=== PATIENT | male | born 1940 | race Caucasian/White ===

== ENCOUNTER 2016-06-07 18:14 | Observation (INO) | payer MEDICARE, OTHER ==
[2016-06-07 18:38] LABS: Hematocrit 43 % (42-52); Hemoglobin 14.5 g/dl (14.0-18.0); Mean Corpuscular HGB Conc 33 g/dl (31-36); Mean Corpuscular Hemoglobin 31 pg (27-31); Mean Corpuscular Volume 92 fL (80-94); Mean Platelet Volume 9 um3 (7.4-10.4); Red Blood Count 4.69 10^6/ul (4.0-5.4); Red Cell Distribution Width 14 % (10.5-15); White Blood Count 5.9 10^3/ul (3.5-10.8)
--- NOTE | 2016-06-07 18:41 | RAD ---
INDICATION: Neurologic changes COMPARISON: None. TECHNIQUE: Contiguous axial sections of the brain were obtained from the skull base to the vertex without contrast. FINDINGS: The ventricles, cisterns and sulci exhibit mild symmetric involutional change. The subcortical and periventricular white matter exhibits mild hypoattenuation. The bhatti-white matter differentiation is adequately maintained and there is no sulcal effacement. No significant focal abnormality or mass effect is present. There is no evidence for intracranial hemorrhage. No significant focal osseous abnormality is present. The visualized portion of the paranasal sinuses and mastoid air cells appear clear. Bilateral hearing aids are noted. IMPRESSION: Mild chronic microvascular disease and mild involutional changes without acute intracranial abnormality. Findings reported Dr. Vidal over the telephone at 1829 hours on June 07, 2016.
[2016-06-07 18:51] LABS: Urine Bacteria Absent (Absent); Urine Bilirubin Negative (Negative); Urine Glucose Negative (Negative); Urine Nitrite Negative (Negative)
[2016-06-07 19:02] LABS: Albumin 4.1 g/dL (3.2-5.2); Calcium 9.5 mg/dL (8.6-10.3); EGFR African American 84.6 (>60); EGFR Non-African American 65.8 (>60); Globulin 3.1 g/dL (2-4); HDL Cholesterol 55.2 mg/dL; Potassium 3.7 mmol/L (3.5-5.0); Total Bilirubin 0.5 mg/dL (0.2-1.0); Total Protein 7.2 g/dL (6.4-8.9)
--- NOTE | 2016-06-07 19:08 | RAD ---
INDICATION: Syncopal episode COMPARISON: None. TECHNIQUE: Single AP portable view of the chest was obtained. FINDINGS: Image quality is compromised due to the relative inferiority of a portable chest x-ray. The heart and mediastinum exhibit normal size and contour. There is mild calcification overlying the arch of the aorta. The lungs are grossly clear. There is no evidence of a large pleural effusion. Visualized bones are normal for the patient's age. IMPRESSION: No radiographic evidence for acute cardiopulmonary abnormality on this portable chest x-ray.
[2016-06-07 19:33] LABS: BUN/Creatinine Ratio 19.3 (8-20)
[2016-06-07] MEDS ORDERED: Ondansetron INJ* 2 MG/ML VIAL IV ONE (20:02)
--- NOTE | 2016-06-07 20:48 | ED ---
tello Nava Timothy, scribed for James Vidal MD on 06/07/16 at 1828 . Neurological HPI - HPI Summary HPI Summary: Lm Lovelace is a 76 yo male presenting to [facility] with possible CVA. He was found on the floor snoring, and orginally it was believed that he had a syncopal episode or seizure, however at this point EMS believes it to be a CVA. He states he felt dizzy right before the event. His is present in room, and states that prior to the event he began saying things that didn't make sense for about 3 phrases. He states he saw lights when he lost consciousness. He states he feels normal now, but before he states when his speech was impaired he couldn't find the words. His MHx includes HTN. - History of Current Complaint Stated Complaint: CODE REYNOLDS Time Seen by Provider: 06/07/16 18:16 Last Known Well Date: today Hx Obtained From: Patient Onset/Duration: Sudden Onset, Started minutes ago Timing: Sudden Onset Onset Severity: Moderate Current Severity: Moderate Pain Intensity: 0 Pain Scale Used: 0-10 Numeric Character: Impaired Speech, Other: - syncope Syncope Timing: seconds Episode Lasting: Seconds/Minutes Syncope Context: Witnessed, Loss of Consciousness: Yes, At Rest Syncope Location: All Extremities Associated Signs and Symptoms: Positive: Loss of Consciousness, Impaired Speech - Allergy/Home Medications Allergies/Adverse Reactions: Allergies Allergy/AdvReac Type Severity Reaction Status Date / Time No Known Allergies Allergy Verified 06/07/16 18:42 Home Medications: Home Medications Isosorbide Mononitrate ER TAB* [Imdur ER TAB*] 30 mg PO DAILY 06/07/16 [History Confirmed 06/07/16] Nebivolol TAB (NF) [Bystolic TAB (NF)] 2.5 mg PO BEDTIME 06/07/16 [History Confirmed 06/07/16] [place]-3 Fatty Acids [Fish Oil] 1,000 mg PO DAILY 06/07/16 [History Confirmed ] Vitamin B Complex CAP* [B Complex CAP*] 1 cap PO DAILY 06/07/16 [History Confirmed 06/07/16] PMH/Surg Hx/FS Hx/Imm Hx Endocrine/Hematology History: Denies: Hx Diabetes, Hx Systemic Lupus Erythematosus Cardiovascular History: Reports: Hx Hypertension Denies: Hx Congestive Heart Failure History: Denies: Hx Dialysis, Hx Renal Disease Musculoskeletal History: Denies: Hx Rheumatoid Arthritis - Cancer History Hx Chemotherapy: No - Surgical History Surgery Procedure, Year, and Place: rt groin hernia - Family History Known Family History: Positive: Cardiac Disease, Hypertension Negative: Diabetes - Social History Lives: With Family Hx Tobacco Use: No Smoking Status (MU): Never Smoked Tobacco Review of Systems Constitutional: Negative Eyes: Negative ENT: Negative Cardiovascular: Negative Respiratory: Negative Gastrointestinal: Negative Genitourinary: Negative Musculoskeletal: Negative Skin: Negative Neurological: Other - impaired speech Positive: Syncope Psychological: Normal All Other Systems Reviewed And Are Negative: Yes Physical Exam Triage Information Reviewed: Yes Vital Signs On Initial Exam: Initial Vital Signs Temp 98.2 F 06/07/16 18:23 Pulse 60 06/07/16 18:23 Resp 15 06/07/16 18:23 BP 184/114 06/07/16 18:23 Pulse Ox 95 06/07/16 18:23 Vital Signs Reviewed: Yes Appearance: Positive: Well-Appearing, No Pain Distress Skin: Positive: Warm, Skin Color Reflects Adequate Perfusion, Dry Head/Face: Positive: Normal Head/Face Inspection Eyes: Positive: Normal ENT: Positive: Normal ENT inspection Neck: Positive: Supple, Nontender Respiratory/Lung Sounds: Positive: Clear to Auscultation, Breath Sounds Present Cardiovascular: Positive: RRR Abdomen Description: Positive: Nontender, Soft Bowel Sounds: Positive: Present Musculoskeletal: Positive: Normal Neurological: Positive: Sensory/Motor Intact, Alert, Oriented to Person Place, Time, CN Intact II-III, Reflexes Intact Psychiatric: Positive: Normal, Affect/Mood Appropriate Diagnostics - Vital Signs Vital Signs Temp Pulse Resp BP Pulse Ox 06/07/16 19:22 50 17 183/105 98 06/07/16 19:00 53 12 97 06/07/16 18:30 59 13 95 06/07/16 18:23 98.2 F 60 15 184/114 95 06/07/16 18:18 95 - Laboratory Lab Results: Lab Results 06/07/16 06/07/16 06/07/16 Range/Units 18:32 18:32 18:32 WBC 5.9 (3.5-10.8) 10^3/ul RBC 4.69 (4.0-5.4) 10^6/ul Hgb 14.5 (14.0-18.0) g/dl Hct 43 (42-52) % MCV 92 (80-94) fL MCH 31 (27-31) pg MCHC 33 (31-36) g/dl RDW 14 (10.5-15) % Plt Count 124 L (150-450) 10^3/ul MPV 9 (7.4-10.4) um3 Neut % (Auto) 53.8 (38-83) % Lymph % (Auto) 34.7 (25-47) % Lagrange % (Auto) 9.0 (1-9) % Eos % (Auto) 1.7 (0-6) % Baso % (Auto) 0.8 (0-2) % Absolute Neuts (auto) 3.2 (1.5-7.7) 10^3/ul Absolute Lymphs (auto) 2.0 (1.0-4.8) 10^3/ul Absolute Monos (auto) 0.5 (0-0.8) 10^3/ul Absolute Eos (auto) 0.1 (0-0.6) 10^3/ul Absolute Basos (auto) 0 (0-0.2) 10^3/ul Absolute Nucleated RBC 0 10^3/ul Nucleated RBC % 0.1 INR (Anticoag Therapy) 0.93 (0.89-1.11) APTT 27.2 (26.0-36.3) seconds Sodium 137 (133-145) mmol/L Potassium 3.7 (3.5-5.0) mmol/L Chloride 105 (101-111) mmol/L Carbon Dioxide 25 (22-32) mmol/L Anion Gap 7 (2-11) mmol/L BUN 21 (6-24) mg/dL Creatinine 1.09 (0.67-1.17) mg/dL Est GFR ( Amer) 84.6 (>60) Est GFR (Non-Af Amer) 65.8 (>60) BUN/Creatinine Ratio 19.3 (8-20) Glucose 108 H (70-100) mg/dL Lactic Acid (0.5-2.0) mmol/L Calcium 9.5 (8.6-10.3) mg/dL Total Bilirubin 0.50 (0.2-1.0) mg/dL AST 44 H (13-39) U/L ALT 35 (7-52) U/L Alkaline Phosphatase 54 (34-104) U/L Troponin I 0.00 (<0.04) ng/mL Total Protein 7.2 (6.4-8.9) g/dL Albumin 4.1 (3.2-5.2) g/dL Globulin 3.1 (2-4) g/dL Albumin/Globulin Ratio 1.3 (1-3) Triglycerides 106 mg/dL Cholesterol 218 mg/dL LDL Cholesterol 142 mg/dL HDL Cholesterol 55.2 mg/dL Urine Color Urine Appearance Urine pH (5-9) Ur Specific Stanley (1.010-1.030) Urine Protein (Negative) Urine Ketones (Negative) Urine Blood (Negative) Urine Nitrate (Negative) Urine Bilirubin (Negative) Urine Urobilinogen (Negative) Ur Leukocyte Esterase (Negative) Urine WBC (Auto) (Absent) Urine RBC (Auto) (Absent) Ur Squamous Epith Cells (Absent) Urine Bacteria (Absent) Hyaline Casts (Absent) Urine Glucose (Negative) Urine Ascorbic Acid (Negative) 06/07/16 06/07/16 Range/Units 18:32 18:38 WBC (3.5-10.8) 10^3/ul RBC (4.0-5.4) 10^6/ul Hgb (14.0-18.0) g/dl Hct (42-52) % MCV (80-94) fL MCH (27-31) pg MCHC (31-36) g/dl RDW (10.5-15) % Plt Count (150-450) 10^3/ul MPV (7.4-10.4) um3 Neut % (Auto) (38-83) % Lymph % (Auto) (25-47) % Lagrange % (Auto) (1-9) % Eos % (Auto) (0-6) % Baso % (Auto) (0-2) % Absolute Neuts (auto) (1.5-7.7) 10^3/ul Absolute Lymphs (auto) (1.0-4.8) 10^3/ul Absolute Monos (auto) (0-0.8) 10^3/ul Absolute Eos (auto) (0-0.6) 10^3/ul Absolute Basos (auto) (0-0.2) 10^3/ul Absolute Nucleated RBC 10^3/ul Nucleated RBC % INR (Anticoag Therapy) (0.89-1.11) APTT (26.0-36.3) seconds Sodium (133-145) mmol/L Potassium (3.5-5.0) mmol/L Chloride (101-111) mmol/L Carbon Dioxide (22-32) mmol/L Anion Gap (2-11) mmol/L BUN (6-24) mg/dL Creatinine (0.67-1.17) mg/dL Est GFR ( Amer) (>60) Est GFR (Non-Af Amer) (>60) BUN/Creatinine Ratio (8-20) Glucose (70-100) mg/dL Lactic Acid 2.8 H* (0.5-2.0) mmol/L Calcium (8.6-10.3) mg/dL Total Bilirubin (0.2-1.0) mg/dL AST (13-39) U/L ALT (7-52) U/L Alkaline Phosphatase (34-104) U/L Troponin I (<0.04) ng/mL Total Protein (6.4-8.9) g/dL Albumin (3.2-5.2) g/dL Globulin (2-4) g/dL Albumin/Globulin Ratio (1-3) Triglycerides mg/dL Cholesterol mg/dL LDL Cholesterol mg/dL HDL Cholesterol mg/dL Urine Color Yellow Urine Appearance Clear Urine pH 5.0 (5-9) Ur Specific Stanley 1.013 (1.010-1.030) Urine Protein 2+(100 mg/dl) H (Negative) Urine Ketones Negative (Negative) Urine Blood Negative (Negative) Urine Nitrate Negative (Negative) Urine Bilirubin Negative (Negative) Urine Urobilinogen Negative (Negative) Ur Leukocyte Esterase Negative (Negative) Urine WBC (Auto) Trace(0-5/hpf) (Absent) Urine RBC (Auto) Trace(0-2/hpf) (Absent) Ur Squamous Epith Cells Present H (Absent) Urine Bacteria Absent (Absent) Hyaline Casts Present H (Absent) Urine Glucose Negative (Negative) Urine Ascorbic Acid * H (Negative) Result Diagrams: 06/07/16 18:32 06/07/16 18:32 Lab Statement: Any lab studies that have been ordered have been reviewed, and results considered in the medical decision making process. - Radiology CXR Xray Interpretation: No Acute Changes - IMPRESSION: No radiographic evidence for acute cardiopulmonary abnormality on this portable chest x-ray. Radiology Interpretation Completed By: Radiologist - CT Brain CT Interpretation: No Acute Changes - IMPRESSION: Mild chronic microvascular disease and mild involutional changes without acute intracranial abnormality. CT Interpretation Completed By: Radiologist - EKG 1825 Cardiac Rate: Bradycardia - 54 BPM EKG Interpretation: Sinus bradycardia @ 54 BPM. NIH Scale - NIH Scale Level of Consciousness: Alert/Keenly Responsive Ask Patient the Month and His/Her Age: Both Correct Ask Pt to Open/Close Eyes and [employer]/Release Non-Paretic Hand: Both Correctly Best Gaze (Only Horizontal Eye Movement): Normal Visual Field Testing: No Visual Loss Facial Paresis-Pt to Smile & Close Eyes or Grimace Symmetry: Normal/Symmetrical Motor Function - Right Arm: No Drift-Holds 10 Seconds Motor Function - Left Arm: No Drift-Holds 10 Seconds Motor Function - Right Leg: No Drift-Holds 10 Seconds Motor Function - Left Leg: No Drift-Holds 10 Seconds Limb Ataxia-Must be out of Proportion to Weakness Present: Absent Sensory (Use Pinprick to Test Arms/Legs/Trunk/Face): Normal Best Language (Describe Picture, Name Items): No Aphasia Extinction and Inattention: No Abnormality NIH Stroke Scale Comment: score: 0 Course/Dx - Course Assessment/Plan: Lm Lovelace is a 76 yo male presenting to [facility] as a code avelar. It sounds more like a syncopal episode to me and concerningly, a dysrythmic episode. I discussed it with Drs. Gomez and Samantha. - Diagnoses Provider Diagnoses: Syncope and collapse During the Visit The Following Alert/Code Occurred: Code Avelar - Physician Notifications Discussed Care of Patient With: 1835 - Dr. Gomez (neurology) - discussed Pt condition, states that Sx are not particularly consistent with normal presentation of CVA. 1954 - Dr. Singh (hospitalist) - discussed Pt condition, agrees to admit Pt. Discharge - Discharge Plan Condition: Stable Disposition: ADMITTED TO [facility] Referrals: Jesús Carrillo MD [Primary Care Provider] - The documentation as recorded by the tello ramon Timothy accurately reflects the service I personally performed and the decisions made by me, James Vidal MD.
[2016-06-07] MEDS: Heparin VIAL(*) 5000 UNITS/ML VIAL (FIVE THOUSAND) SUBCUT SCH (22:40)
--- NOTE | 2016-06-08 00:45 | HP ---
HISTORY AND PHYSICAL: DATE OF ADMISSION: 06/07/16 PRIMARY CARE PROVIDER: Jesús Carrillo MD ATTENDING PHYSICIAN: Duc Singh MD* (dictated by Chiquita Starkey NP) CHIEF COMPLAINT: Syncopal episode. HISTORY OF PRESENT ILLNESS: Mr. Lovelace is a 76-year-old male with past medical history significant for hypertension, diastolic dysfunction, and hyperlipidemia , who presented to the emergency room today after a syncopal episode. The patient reports returning from a vigorous walk with his and was talking to her at which point, he felt as though he was going to faint. He was noted to have some speech problems, reported as inability to pick out the correct words. This lasted for approximately 10 seconds. The patient's assisted him to the ground where he was unresponsive with snoring respirations. 911 was called. Upon EMS arrival, the patient was found to be unresponsive with snoring respirations. The patient denies any recent fever, chills, chest pain, shortness of breath, cold symptoms. The patient does report feeling faint and flashing lights prior to his unresponsive episode. The patient states that when he laid on the ground with his eyes open looking at the tacos he was aware of what was going on around him, but was unable to communicate. The patient was brought to the emergency room for further evaluation. While in the emergency room, the patient was initially called Fatoumata Ayala. He had a brain CT showing no acute findings. He had a chest x-ray showing no acute cardiopulmonary abnormalities. He had a EKG showing a sinus bradycardia with a T- wave inversion in lead V1. There are no previous EKG's for comparison. The patient had labs that were fairly unremarkable. The patient had a lactic acid of 2.8. Troponin is 0.00. The patient was noted to be hypertensive during his time in the emergency room with systolic blood pressures in 180s to 190s. The hospitalists were asked to evaluate the patient for admission. PAST MEDICAL HISTORY: 1. Hyperlipidemia. 2. Hearing loss. 3. Diastolic dysfunction. 4. Enlarged aorta. 5. Hypertension. PAST SURGICAL HISTORY: 1. Status post a right inguinal hernia repair. 2. Status post LASIK eye surgery. HOME MEDICATIONS: 1. Bystolic 2.5 mg oral daily at bedtime. 2. Fish oil 1000 mg oral twice daily. 3. Vitamin B complex 1 tablet oral daily. 4. Isosorbide 30 mg oral daily. 5. Irbesartan 300 mg oral daily. 6. Cardizem CD 120 mg oral daily. 7. Vitamin D 400 IUs oral daily. 8. Aspirin 81 mg oral daily. 9. Pravastatin 20 mg oral twice weekly. 10. Niacin 500 mg oral daily. 11. Minocycline 50 mg oral twice weekly. 12. Levothyroxine 175 mcg oral daily. 13. AREDS eye vitamins 1 tablet oral twice daily. ALLERGIES: No known drug allergies. FAMILY HISTORY: The patient reports his father with a history of congestive heart failure and type 2 diabetes mellitus. The patient's mother had a history of angina and breast and bone cancer. The patient has a brother with a history of dysplasia. SOCIAL HISTORY: The patient is a former smoker. He quit approximately 35 years ago. Prior to that, he smoked for approximately 22 years a pack and a half a day. The patient reports drinking 2 to 3 alcoholic beverages daily. The patient occasionally smokes marijuana. 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 He is and lives with his . His , Nabil Lovelace, will be his surrogate decision maker in the event he is unable to make decisions for himself. REVIEW OF SYSTEMS: I performed a 14-point review of systems. All the pertinent positives and negatives are mentioned in the history of present illness. The remaining review of systems is negative. PHYSICAL EXAMINATION GENERAL APPEARANCE: The patient is alert, pleasant, appears to be in no acute distress. VITAL SIGNS: Temperature 98.2, heart rate 51, respiratory rate 17, O2 sat 98% on room air, blood pressure 185/105. HEENT: Normocephalic, atraumatic. Pupils are equal and reactive to light. Extraocular movements are intact. NECK: Supple. There is no lymphadenopathy noted. Tongue is midline and smile is symmetric. RESPIRATORY: There is no accessory muscle use and the lungs are clear to auscultation bilaterally. CARDIAC: Regular rate and rhythm. S1, S2 present. There are no murmurs, rubs or gallops heard. ABDOMEN: Soft, nontender, nondistended. There are bowel sounds present x4. EXTREMITIES: There is no lower extremity edema. DP and PT pulses are 2+ and symmetric. MUSCULOSKELETAL: There is no clubbing or cyanosis noted. The patient exhibits good strength in all extremities. NEUROLOGIC: The patient is alert and oriented x3. Cranial nerves II through XII are grossly intact. PSYCHOLOGIC: The patient is calm and cooperative. SKIN: There are no rashes or abnormalities noted. DIAGNOSTIC STUDIES/LABORATORY DATA: Sodium 137, potassium 3.7, chloride 105, CO2 of 25, BUN 21, creatinine 1.09, glucose 108. White blood cell count 5.9, hemoglobin 14.5, hematocrit 43, and platelet count 125. Lactic acid 2.8. Troponin 0.00. Urinalysis is significant for squamous epithelial cells present. Hyaline casts present. Protein 2+. The patient does have an elevated AST of 44. EKG shows sinus jayme with a T-wave inversion in lead V1. There are no prior EKGs for comparison. 1. Chest x-ray from today, radiologist's impression: No acute cardiopulmonary abnormality. 2. Brain CT from today, radiologist's impression: Mild chronic microvascular disease, mild involutional changes without acute abnormalities. IMPRESSION: Mr. Lovelace is a 76-year-old male with past medical history significant for hypertension, hypertension, and diastolic dysfunction, who presented to the emergency room after a syncopal episode. He will be admitted as an observation for syncope workup. 1. Assessment for sudden syncope. I suspect this is an arrhythmia related syncope. The patient will be monitored on the telemetry. We will trend his troponins. In the differential is a seizure. We will check the patient's prolactin. If this is elevated, we will also get an EEG to check for seizure activity. The patient's brain CT was negative. We will also check a transthoracic echocardiogram in the morning. We will check orthostatic vital signs. 2. Hypertension. The patient has been hypertensive while in the emergency room. He has not taken all of his medications yet today. We will give him his evening medications if he continues to be elevated. We will give him p.r.n. hydralazine and consider adjusting his home medications. In the past, Cardiology has recommended that if the patient's systolic blood pressures were in the 140s, to increase his isosorbide 50 mg daily. I also recommended the patient to take his isosorbide in the evening, his diltiazem in the morning with his irbesartan. 3. Thoracic aortic aneurysm. This has been stable and monitored in an outpatient setting by his carbon electrodes supervisor, Dr. David. A CT angiography from December 2015, he had a 4.5 cm aortic root. 4. Fluids, electrolytes, and nutrition. The patient will be on a heart- healthy diet. 5. Code status. Full code. 6. DVT prophylaxis. The patient is high risk and will be on subcu heparin. 7. Disposition. The patient will be in observation. TIME SPENT: The time for this admission was 60 minutes, 35 minutes was spent face to face with the patient and discussing medications, past medical history, and the events leading up to his arrival today and performing a physical examination. The case has been reviewed with the attending, Dr. Singh, who agrees with the plan of care. Reviewed by DEQUAN OVALLE 06/08/16 1118 CC: Jesús Carrillo MD * [id number]/[facility] #: [id number] MTDD
[2016-06-08 05:46] LABS: Hematocrit 42 % (42-52); Hemoglobin 14.3 g/dl (14.0-18.0); Mean Corpuscular HGB Conc 34 g/dl (31-36); Mean Corpuscular Hemoglobin 31 pg (27-31); Mean Corpuscular Volume 92 fL (80-94); Mean Platelet Volume 10 um3 (7.4-10.4); Red Blood Count 4.61 10^6/ul (4.0-5.4); Red Cell Distribution Width 14 % (10.5-15); White Blood Count 5.1 10^3/ul (3.5-10.8)
[2016-06-08] MEDS: Heparin VIAL(*) 5000 UNITS/ML VIAL (FIVE THOUSAND) SUBCUT SCH ×2 (05:50→15:29)
[2016-06-08] MEDS ORDERED: Levothyroxine TAB* 75 MCG TAB PO SCH (06:00)
[2016-06-08] MEDS ORDERED: Levothyroxine TAB* 100 MCG TAB PO SCH (06:00)
[2016-06-08] MEDS ORDERED: amLODIPine TAB* 5 MG PO SCH (09:00)
[2016-06-08] MEDS ORDERED: Aspirin Low Dose CHEW TAB* 81 MG PO SCH (09:00)
[2016-06-08] MEDS ORDERED: Losartan TAB* 25 MG PO SCH (09:00)
[2016-06-08] MEDS ORDERED: Niacin ER TAB* 500 MG PO SCH (09:00)
[2016-06-08] MEDS ORDERED: Diltiazem CD CAP* 120 MG PO SCH (09:00)
[2016-06-08] MEDS ORDERED: Isosorbide Mononitrate ER TAB* 30 MG PO SCH (09:00)
--- NOTE | 2016-06-08 13:55 | PN ---
Subjective Date of Service: 06/08/16 Interval History: Pt is feeling well. He has not further episodes of dizziness or LOC but he has not been up and walking. No chest pain. Objective Active Medications: Amlodipine Besylate (Norvasc Tab*) 5 mg PO DAILY [facility] Last Admin: 06/08/16 09:55 Dose: 5 mg Aspirin (Aspirin Low Dose Tab*) 81 mg PO DAILY [facility] Last Admin: 06/08/16 09:55 Dose: 81 mg Heparin Sodium (Porcine) (Heparin Vial(*)) 5,000 units SUBCUT Q8HR [facility] Last Admin: 06/08/16 05:50 Dose: 5,000 units Isosorbide Mononitrate (Imdur Er Tab*) 30 mg PO DAILY [facility] Last Admin: 06/08/16 09:55 Dose: 30 mg Levothyroxine Sodium (Synthroid Tab*) 100 mcg PO DAILY@0600 [facility] Last Admin: 06/08/16 05:48 Dose: 100 mcg Levothyroxine Sodium (Synthroid Tab*) 75 mcg PO DAILY@0600 [facility] Last Admin: 06/08/16 05:48 Dose: 75 mcg Losartan Potassium (Cozaar Tab*) 100 mg PO DAILY [facility] Last Admin: 06/08/16 09:55 Dose: 100 mg Nebivolol (Bystolic Tab (Nf)) 2.5 mg PO BEDTIME [facility] Niacin (Niaspan Er Tab*) 500 mg PO DAILY [facility] Last Admin: 06/08/16 10:56 Dose: 500 mg Vital Signs 06/07/16 06/07/16 06/07/16 21:30 22:15 23:15 Temperature 97.9 F Pulse Rate 46 55 Respiratory 14 18 Rate Blood Pressure 186/95 165/81 (mmHg) O2 Sat by Pulse 100 100 100 Oximetry 06/08/16 06/08/16 06/08/16 00:31 00:33 00:34 Temperature 97.8 F Pulse Rate 45 49 61 Respiratory 20 20 20 Rate Blood Pressure 159/88 176/98 163/122 (mmHg) O2 Sat by Pulse 98 99 96 Oximetry 06/08/16 06/08/16 06/08/16 00:35 00:36 00:38 Temperature 97.8 F Pulse Rate 45 49 61 Respiratory 20 20 20 Rate Blood Pressure 159/88 176/98 163/122 (mmHg) O2 Sat by Pulse 98 99 96 Oximetry 06/08/16 06/08/16 06/08/16 03:34 07:32 08:00 Temperature 97.9 F 97.9 F Pulse Rate 46 49 Respiratory 20 16 16 Rate Blood Pressure 155/86 167/93 (mmHg) O2 Sat by Pulse 96 99 99 Oximetry 06/08/16 08:41 Temperature Pulse Rate 43 Respiratory Rate Blood Pressure 162/92 (mmHg) O2 Sat by Pulse Oximetry Oxygen Devices in Use Now: None Appearance: Elderly male sitting up in bed, NAD Eyes: No Scleral Icterus Ears/Nose/Mouth/Throat: Mucous Membranes Moist Respiratory: Symmetrical Chest Expansion and Respiratory Effort, Clear to Auscultation Cardiovascular: NL Sounds; No Murmurs; No JVD, No Edema, - - bradycardic but regular Abdominal: NL Sounds; No Tenderness; No Distention Extremities: No Clubbing, Cyanosis Skin: No Rash or Ulcers, No Nodules or Sclerosis Neurological: Alert and Oriented x 3 Result Diagrams: 06/08/16 05:01 06/07/16 18:32 Additional Lab and Data: Lab Results 06/07/16 06/07/16 06/07/16 Range/Units 18:32 18:32 18:32 WBC 5.9 (3.5-10.8) 10^3/ul RBC 4.69 (4.0-5.4) 10^6/ul Hgb 14.5 (14.0-18.0) g/dl Hct 43 (42-52) % MCV 92 (80-94) fL MCH 31 (27-31) pg MCHC 33 (31-36) g/dl RDW 14 (10.5-15) % Plt Count 124 L (150-450) 10^3/ul MPV 9 (7.4-10.4) um3 Neut % (Auto) 53.8 (38-83) % Lymph % (Auto) 34.7 (25-47) % [place] % (Auto) 9.0 (1-9) % Eos % (Auto) 1.7 (0-6) % Baso % (Auto) 0.8 (0-2) % Absolute Neuts (auto) 3.2 (1.5-7.7) 10^3/ul Absolute Lymphs (auto) 2.0 (1.0-4.8) 10^3/ul Absolute Monos (auto) 0.5 (0-0.8) 10^3/ul Absolute Eos (auto) 0.1 (0-0.6) 10^3/ul Absolute Basos (auto) 0 (0-0.2) 10^3/ul Absolute Nucleated RBC 0 10^3/ul Nucleated RBC % 0.1 INR (Anticoag Therapy) 0.93 (0.89-1.11) APTT 27.2 (26.0-36.3) seconds Sodium 137 (133-145) mmol/L Potassium 3.7 (3.5-5.0) mmol/L Chloride 105 (101-111) mmol/L Carbon Dioxide 25 (22-32) mmol/L Anion Gap 7 (2-11) mmol/L BUN 21 (6-24) mg/dL Creatinine 1.09 (0.67-1.17) mg/dL Est GFR ( Amer) 84.6 (>60) Est GFR (Non-Af Amer) 65.8 (>60) BUN/Creatinine Ratio 19.3 (8-20) Glucose 108 H (70-100) mg/dL Lactic Acid (0.5-2.0) mmol/L Calcium 9.5 (8.6-10.3) mg/dL Total Bilirubin 0.50 (0.2-1.0) mg/dL AST 44 H (13-39) U/L ALT 35 (7-52) U/L Alkaline Phosphatase 54 (34-104) U/L Troponin I 0.00 (<0.04) ng/mL Total Protein 7.2 (6.4-8.9) g/dL Albumin 4.1 (3.2-5.2) g/dL Globulin 3.1 (2-4) g/dL Albumin/Globulin Ratio 1.3 (1-3) Triglycerides 106 mg/dL Cholesterol 218 mg/dL LDL Cholesterol 142 mg/dL HDL Cholesterol 55.2 mg/dL Urine Color Urine Appearance Urine pH (5-9) Ur Specific Morning [place] (1.010-1.030) Urine Protein (Negative) Urine Ketones (Negative) Urine Blood (Negative) Urine Nitrate (Negative) Urine Bilirubin (Negative) Urine Urobilinogen (Negative) Ur Leukocyte Esterase (Negative) Urine WBC (Auto) (Absent) Urine RBC (Auto) (Absent) Ur Squamous Epith Cells (Absent) Urine Bacteria (Absent) Hyaline Casts (Absent) Urine Glucose (Negative) Urine Ascorbic Acid (Negative) 06/07/16 06/07/16 Range/Units 18:32 18:38 WBC (3.5-10.8) 10^3/ul RBC (4.0-5.4) 10^6/ul Hgb (14.0-18.0) g/dl Hct (42-52) % MCV (80-94) fL MCH (27-31) pg MCHC (31-36) g/dl RDW (10.5-15) % Plt Count (150-450) 10^3/ul MPV (7.4-10.4) um3 Neut % (Auto) (38-83) % Lymph % (Auto) (25-47) % [place] % (Auto) (1-9) % Eos % (Auto) (0-6) % Baso % (Auto) (0-2) % Absolute Neuts (auto) (1.5-7.7) 10^3/ul Absolute Lymphs (auto) (1.0-4.8) 10^3/ul Absolute Monos (auto) (0-0.8) 10^3/ul Absolute Eos (auto) (0-0.6) 10^3/ul Absolute Basos (auto) (0-0.2) 10^3/ul Absolute Nucleated RBC 10^3/ul Nucleated RBC % INR (Anticoag Therapy) (0.89-1.11) APTT (26.0-36.3) seconds Sodium (133-145) mmol/L Potassium (3.5-5.0) mmol/L Chloride (101-111) mmol/L Carbon Dioxide (22-32) mmol/L Anion Gap (2-11) mmol/L BUN (6-24) mg/dL Creatinine (0.67-1.17) mg/dL Est GFR ( Amer) (>60) Est GFR (Non-Af Amer) (>60) BUN/Creatinine Ratio (8-20) Glucose (70-100) mg/dL Lactic Acid 2.8 H* (0.5-2.0) mmol/L Calcium (8.6-10.3) mg/dL Total Bilirubin (0.2-1.0) mg/dL AST (13-39) U/L ALT (7-52) U/L Alkaline Phosphatase (34-104) U/L Troponin I (<0.04) ng/mL Total Protein (6.4-8.9) g/dL Albumin (3.2-5.2) g/dL Globulin (2-4) g/dL Albumin/Globulin Ratio (1-3) Triglycerides mg/dL Cholesterol mg/dL LDL Cholesterol mg/dL HDL Cholesterol mg/dL Urine Color Yellow Urine Appearance Clear Urine pH 5.0 (5-9) Ur Specific [place] 1.013 (1.010-1.030) Urine Protein 2+(100 mg/dl) H (Negative) Urine Ketones Negative (Negative) Urine Blood Negative (Negative) Urine Nitrate Negative (Negative) Urine Bilirubin Negative (Negative) Urine Urobilinogen Negative (Negative) Ur Leukocyte Esterase Negative (Negative) Urine WBC (Auto) Trace(0-5/hpf) (Absent) Urine RBC (Auto) Trace(0-2/hpf) (Absent) Ur Squamous Epith Cells Present H (Absent) Urine Bacteria Absent (Absent) Hyaline Casts Present H (Absent) Urine Glucose Negative (Negative) Urine Ascorbic Acid * H (Negative) Assess/Plan/Problems-Billing Mr Lovelace is a 76 yo M who has a h/o aortic root dilation, HTN and diastolic CHF who presented to the ER with c/o garbled speech followed by an episode of unresponsiveness. - Patient Problems (1) Syncope Current Visit: Yes Status: Acute Code(s): R55 - SYNCOPE AND COLLAPSE SNOMED Code(s): 959299733 Comment: No significant arrhythmias on tele. He remains bradycardic. I question if his syncopal episode was secondary to orthostasis in the setting of bradycardia. I am less suspicious for a cardiac arrhythmia as he did have prodromal symptoms prior to passing out. Echo report is pending. If his echo does not show any concerning findings will d/c pt home to follow up with Dr. David as an outpatient. (2) Bradycardia Current Visit: Yes Status: Acute Code(s): R00.1 - BRADYCARDIA, UNSPECIFIED SNOMED Code(s): 89606346 Comment: Pt remains bradycardic in the 40-low 50's. Stop diltiazem and monitor BP. He will need to follow up with Dr. David as an outpatient for further recommendations on rate controlling agents. (3) HTN (hypertension) Current Visit: Yes Status: Acute Code(s): I10 - ESSENTIAL (PRIMARY) HYPERTENSION SNOMED Code(s): 53711141 Comment: BP has been quite elevated. I have changed diltiazem to amlodipine 5mg daily but despite this his BP remains elevated. Will recheck BP prior to d/ c home and if still elevated increase isorbide to 60mg at bedtime. (4) Hypothyroidism Current Visit: Yes Status: Acute Code(s): E03.9 - HYPOTHYROIDISM, UNSPECIFIED SNOMED Code(s): 32171184 Comment: Continue current dose of synthroid. (5) Thrombocytopenia Current Visit: Yes Status: Acute Code(s): D69.6 - THROMBOCYTOPENIA, UNSPECIFIED SNOMED Code(s): 530069821 Comment: Unclear if this is chronic. Plt count was stable on the 2 reads this hospitalization. (6) DVT prophylaxis Current Visit: Yes Status: Acute Code(s): TOZ2678 - SNOMED Code(s): 994725488 Comment: SQ heparin (7) Full code status Current Visit: Yes Status: Acute Code(s): Z78.9 - OTHER SPECIFIED HEALTH STATUS SNOMED Code(s): 208354679
[2016-06-08 14:07] VITALS: BP 167/90
--- NOTE | 2016-06-08 14:48 | ECHO ---
Patient: NESSA BROOKE [facility] Rec#: [id number] : 1940 Date: 06/08/2016 Age: 76y Height: 180 cm / 70.9 in Weight: 86 kg / 189.5 lbs Sex: M BSA: 2.06 Room#: [facility] Admit Date#: 1940 Type: Inpatient Referring: Chiquita Torrez NP Reading: Magaly David MD Steam Plant Operator: Ilan Espino RDCS CC: Jesús Carrillo MD Transthoracic Echocardiogram Indication: HTN BP: 155/86 HR: 53 Rhythm: NSR Indications Syncope Findings History: HTN,DD,HLD,former smoker Technical Comments: The study quality is fair. The study is technically limited due to patient body habitus. Left Ventricle: The left ventricular chamber size is normal. Mild concentric left ventricular hypertrophy is observed. Global left ventricular wall motion and contractility are within normal limits. There is normal left ventricular systolic function. The estimated ejection fraction is 50-55%. Abnormal left ventricular diastolic function is observed. Left Atrium: The left atrium is mildly dilated. Right Ventricle: The right ventricular cavity size is normal. The right ventricular global systolic function is normal. Right Atrium: The right atrial cavity size is normal. Aortic Valve: The aortic valve is trileaflet. There is no evidence of aortic regurgitation. There is no evidence of aortic stenosis. Mitral Valve: The mitral valve leaflets appear normal. There is a trace of mitral regurgitation. There is no evidence of mitral stenosis. Tricuspid Valve: There is no evidence of tricuspid valve regurgitation. Pulmonic Valve: The pulmonic valve structure is not well visualized. Pericardium: There is no pericardial effusion. Aorta: There is no dilatation of the ascending aorta. The aortic arch is not well visualized. There is no dilation of the aortic root. Pulmonary Artery: The main pulmonary artery is not well visualized. Venous: The inferior vena cava is not visualized. Conclusions Mild concentric left ventricular hypertrophy is observed. Global left ventricular wall motion and contractility are within normal limits. The estimated ejection fraction is 50-55%. The right ventricular global systolic function is normal. There is a trace of mitral regurgitation. Compared with prior echo of 08/12/15, ventricular and valvular function are stable, ascending aorta not measured, previosly 4.4 cm. Measurements Name Value Normal Range RVIDd (AP) 2D 2.6 cm (0.9 - 2.6) RVDdMajor (2D) 2.4 cm (2.2 - 4.4) RAd ISD 4CH 4 cm (3.4 - 4.9) RA (A4C)W 3.5 cm (2.9 - 4.6) IVSd (2D) 1.2 cm (0.6 - 1) LVPWd (2D) 0.8 cm (0.6 - 1) LVIDd (2D) 5 cm (3.6 - 5.4) LVIDs (2D) 3.5 cm - LV FS (2D) 30 % (25 - 45) Aortic Annulus 1.6 cm (1.4 - 2.6) Ao root diameter (2D) 2.9 cm (2.1 - 3.5) LA dimension (AP) 2D 3.5 cm (2.3 - 3.8) LAd ISD 4CH 5.6 cm (2.9 - 5.3) LA ISD 4CH W 4.1 cm (2.5 - 4.5) Name Value Normal Range LA ESV SP 4CH (A/L) 67 ml - LA ESV SP 2CH (A/L) 46 ml - LA ESV BP (A/L) 59 ml - LA ESV BP (A/L) index 28.71 ml/m2 - LA ESV SP 4CH (MOD) 64 ml - LA ESV SP 2CH (MOD) 45 ml - Name Value Normal Range MV E-wave Vmax 0.47 m/sec - MV deceleration time 169 msec - MV A-wave Vmax 0.61 m/sec - MV E:A ratio 0.76 ratio - LV septal e' Vmax 0.04 m/sec - LV lateral e' Vmax 0.07 m/sec - LV E:e' septal ratio 11.75 ratio - LV E:e' lateral ratio 6.7 ratio - Name Value Normal Range LVOT diameter 1.3 cm - LVOT Vmax 0.9 m/sec - Name Value Normal Range PV Vmax 0.7 m/sec -
[2016-06-08] MEDS ORDERED: Atorvastatin* 10 MG TAB PO SCH (17:00)
[2016-06-08] MEDS ORDERED: CMCS: Nebivolol TAB (NF) 2.5 MG TAB PO SCH (21:00)
--- NOTE | 2016-06-09 06:45 | DS ---
DISCHARGE SUMMARY: DATE OF ADMISSION: 06/07/16 DATE OF DISCHARGE: 06/08/16 PRIMARY CARE PROVIDER: Dr. Carrillo. FACTORY SUPERINTENDENT: Dr. David. PRINCIPAL DIAGNOSIS: Syncopal episode. SECONDARY DIAGNOSES: 1. Dilated aortic root. 2. Hyperlipidemia. 3. Hypertension. DISCHARGE MEDICATIONS: 1. Pravastatin 20 mg p.o. twice weekly. 2. Allen-3 fatty acid 1000 mg p.o. b.i.d. 3. Bystolic 2.5 mg p.o. q.h.s. 4. Vitamin B complex 1 cap p.o. daily. 5. Imdur 60 mg p.o. daily (new dose). 6. Irbesartan 300 mg p.o. daily. 7. Vitamin D 1000 units p.o. daily. 8. Aspirin 81 mg p.o. daily. 9. Niacin 500 mg p.o. daily. 10. Minocycline 50 mg p.o. twice weekly. 11. Levothyroxine 175 mcg p.o. daily. 12. Amlodipine 5 mg p.o. daily (new). DISCONTINUED MEDICATION: Diltiazem. HOSPITAL COURSE: Mr. Lovelace is a 76-year-old male who has been in his usual state of health and performing his usual daily walk with his when he returned home and suddenly developed sensation of lightheadedness, garbled speech, and ultimately passed out. The patient described going for a very vigorous walk with his . When they arrived home, he states he was standing and talking with his and, I believe, the neighbor was close by when suddenly the patient's speech was garbled for approximately 10 seconds. His noted him to be looking unwell and as if he was going to pass out and at that time, she lowered him to the ground. The patient states that while this happened, he felt very lightheaded as if he was spinning. The patient came to relatively quickly per his . The patient was brought to the emergency room for evaluation. I suspect that the garbled speech that the patient had prior to being lowered to the ground was related to hypoperfusion of his brain due to a syncopal episode. Of note, the patient does have history of a dilated aortic root; however, has no other symptoms consistent with aortic dissection. The patient in fact has been up and ambulating around in the hospital without any recurrent symptoms and feels quite well. I suspect that his syncopal episode has been related to volume depletion in the setting of bradycardia and his recent vigorous walk. The patient did undergo transthoracic echocardiogram, revealed normal EF, no significant wall motion abnormalities and no significant valvular issues; however, the aortic root was not well visualized. At this point, it was felt the patient is stable for discharge home. I did discontinue his diltiazem CD given his persistent bradycardia in the 40s. Due to his elevated blood pressure in the setting of being off diltiazem, I have added amlodipine 5 mg daily. Despite the patient's systolic blood pressure has remained in the 160's range. Based on prior cardiology outpatient note, the decision was then made to increase the Imdur to 60 mg at bedtime. The patient has a followup appointment already scheduled with Dr. David for later this month and he should keep that. FOLLOWUP CONCERNS: The patient is being discharged home today, 06/08/16. He is to follow up with Dr. Carrillo in the next 4 to [address] David later this month. ACTIVITY: As tolerated. DIET: Low fat. CONDITION ON DISCHARGE: Stable. TIME SPENT: Thirty-five minutes was spent discharging this patient. CC: Dr. Carrillo; Dr. David * [id number]/[facility] #: [id number] [facility]
== END 2016-06-08 17:15 | disposition home or self-care (01) ==
LOC: ED 18:14 → MEDTELE 21:07
PROVIDERS: ADMIT Hospitalist; ATTEND Hospitalist
DX: R55 Syncope and collapse (principal); E78.5 Hyperlipidemia, unspecified; I10 Essential (primary) hypertension; Z79.82 Long term (current) use of aspirin; Z87.891 Personal history of nicotine dependence
CPT/HCPCS: 36415; 70450; 71010; 80053; 80061; 81003; 81015; 83605; 84146; 84484; 85025; 85610; 85730; 93005; 93306; 99284; A9270-GY; G0378; J1644; J2405

== ENCOUNTER 2016-06-13 17:11 | Inpatient (IN) | payer MEDICARE, OTHER ==
[2016-06-13] MEDS ORDERED: hydrALAZINE IV* 20 MG/ML VIAL IV SLOW PU ONE (17:23)
--- NOTE | 2016-06-13 17:58 | RAD ---
INDICATION: Syncope COMPARISON: May 30, 2016 TECHNIQUE: PA and lateral dual-energy views were obtained. FINDINGS: Bones/Soft Tissues: There are no acute bony findings. Cardiomediastinal: The cardiomediastinal silhouette is normal. Lungs: There are no infiltrates. Pleura: There are no pleural effusions. Other: None IMPRESSION: NORMAL CHEST
--- NOTE | 2016-06-13 18:02 | RAD ---
INDICATION: Syncope COMPARISON: CT brain June 07, 2016 TECHNIQUE: Noncontrast axial source images were acquired from the skull base to the vertex. FINDINGS: Ventricles/sulci: There is minor age-related cortical atrophy with compensatory dilatation of the CSF spaces. Brain parenchyma: There is no focal parenchymal finding, evidence of intracranial mass, or intracranial mass effect. Intracranial hemorrhage:None. Extra-axial spaces: There are no abnormal extra axial fluid collections or evidence of extra-axial mass. Calvarium: There is no calvarial fracture or other calvarial abnormality. Scalp: There is no evidence of scalp or extracalvarial soft tissue abnormality. Paranasal sinuses/mastoid: The paranasal sinuses and mastoid air cells are clear. Other: None. IMPRESSION: No acute intracranial findings or interval changes
[2016-06-13 18:35] LABS: Hematocrit 46 % (42-52); Hemoglobin 15.2 g/dl (14.0-18.0); Mean Corpuscular HGB Conc 33 g/dl (31-36); Mean Corpuscular Hemoglobin 31 pg (27-31); Mean Corpuscular Volume 92 fL (80-94); Mean Platelet Volume 10 um3 (7.4-10.4); Red Blood Count 4.98 10^6/ul (4.0-5.4); Red Cell Distribution Width 14 % (10.5-15); White Blood Count 5.6 10^3/ul (3.5-10.8)
[2016-06-13 18:37] LABS: Urine Bilirubin Negative (Negative); Urine Glucose Negative (Negative); Urine Nitrite Negative (Negative)
[2016-06-13 18:52] LABS: Ammonia 40 mol/L (16-53)
[2016-06-13 18:53] LABS: Albumin 4.4 g/dL (3.2-5.2); BUN/Creatinine Ratio 18.3 (8-20); Calcium 9.7 mg/dL (8.6-10.3); EGFR African American 89.3 (>60); EGFR Non-African American 69.4 (>60); Globulin 3.4 g/dL (2-4); Magnesium 2.1 mg/dL (1.9-2.7); Potassium 3.8 mmol/L (3.5-5.0); Total Bilirubin 0.7 mg/dL (0.2-1.0); Total Protein 7.8 g/dL (6.4-8.9)
[2016-06-13 18:54] LABS: Benzodiazepine Urine Screen None Detected (None Detect)
[2016-06-13 18:54] LABS: Troponin I 0.01 ng/mL (<0.04)
[2016-06-13 18:57] LABS: B Type Natriuretic Peptide 40 pg/mL
[2016-06-13 19:27] LABS: TSH (Thyroid Stimulating Horm) 5.19 mcIU/mL (0.34-5.60)
[2016-06-13] MEDS ORDERED: Senna TAB PO PRN (20:24)
[2016-06-13] MEDS ORDERED: Docusate CAP* 100 MG PO PRN (20:24)
[2016-06-13] MEDS ORDERED: Al Hydrox/Mg Hydrox/Simet LIQ* 30 ML UDC PO PRN (20:24)
[2016-06-13] MEDS ORDERED: Ondansetron INJ* 2 MG/ML VIAL IV PRN (20:24)
[2016-06-13] MEDS ORDERED: Acetaminophen TAB* 325 MG PO PRN (20:24)
--- NOTE | 2016-06-13 20:46 | ED ---
Keyanna Nava Erika, scribed for Aurelio Weinstein MD on 06/13/16 at 1726 . Neurological HPI - HPI Summary HPI Summary: Patient is a 76-year-old male presenting to the ED with a CC of a near-syncopal episode. Patient reports that he started "speaking gibberish" to his , then became dizzy and his lowered him to the ground. Pt then reports snoring - not on purpose - for 5 minutes, but denies LOC. He reports that he could feel his tongue moving backwards during this time. Patient currently denies headache , dizziness, chest pain, and SOB. Patient reports a similar episode about 1 week ago, and states he was admitted overnight. - History of Current Complaint Stated Complaint: NEAR SYNCOPE Time Seen by Provider: 06/13/16 17:17 Hx Obtained From: Patient Onset/Duration: Gradual Onset, Resolved Timing: Constant Onset Severity: Moderate Current Severity: Mild Alleviating: Spontanious Resolution Associated Signs and Symptoms: Positive: Dizziness. Negative: Headache, Chest Pain, Shortness of Breath - Additional Pertinent History Primary Care Physician: [id number] - Allergy/Home Medications Allergies/Adverse Reactions: Allergies Allergy/AdvReac Type Severity Reaction Status Date / Time No Known Allergies Allergy Verified 06/07/16 18:42 PMH/Surg Hx/FS Hx/Imm Hx Endocrine/Hematology History: Denies: Hx Diabetes, Hx Systemic Lupus Erythematosus Cardiovascular History: Reports: Hx Hypertension, Other Cardiovascular Problems/ Disorders - enlarged aorta Denies: Hx Congestive Heart Failure GI History: Reports: Other GI Disorders - small hernia on left, patient reduces when needed History: Denies: Hx Dialysis, Hx Renal Disease Musculoskeletal History: Denies: Hx Rheumatoid Arthritis Sensory History: Reports: Hx Contacts or Glasses - reading glasses, Hx Macular Degeneration, Hx Hearing Aid, Hx Hearing Problem Opthamlomology History: Reports: Hx Contacts or Glasses - reading glasses, Hx Macular Degeneration - Cancer History Hx Chemotherapy: No - Surgical History Surgery Procedure, Year, and Place: rt groin hernia - Family History Known Family History: Positive: Cardiac Disease, Hypertension Negative: Diabetes - Social History Lives: With Family Alcohol Use: Daily Substance Use Type: Reports: None Hx Tobacco Use: No Smoking Status (MU): Never Smoked Tobacco Review of Systems Negative: Chest Pain Negative: Shortness Of Breath Neurological: Other - dizziness, "speaking gibberish," snoring, tongue moved backwards Negative: Headache All Other Systems Reviewed And Are Negative: Yes Physical Exam - Summary Physical Exam Summary: VITAL SIGNS: Reviewed. GENERAL: Patient is a well developed and nourished female who is lying comfortable in the stretcher. Patient is not in any acute respiratory distress. HEAD AND FACE: No signs of trauma. No ecchymosis, hematomas or skull depressions. No sinus tenderness. EYES: PERRLA, EOMI x 2, No injected conjunctiva, no nystagmus. No photophobia. EARS: Hearing grossly intact. Ear canals and tympanic membranes are within normal limits. MOUTH: Oropharynx within normal limits. NECK: Supple, trachea is midline, no adenopathy, no JVD, no carotid bruit, no c- spine tenderness, neck with full ROM. No meningeal signs, no Kernig's or brudzinskis signs. CHEST: Symmetric, no tenderness at palpation LUNGS: Clear to auscultation bilaterally. No wheezing or crackles. CVS: Regular rate and rhythm, S1 and S2 present, no murmurs or gallops appreciated. ABDOMEN: Soft, non-tender. No signs of distention. No rebound no guarding, and no masses palpated. Bowel sounds are normal. EXTREMITIES: FROM in all major joints, no edema, no cyanosis or clubbing. NEURO: Alert and oriented x 3. No acute neurological deficits. Speech is normal and follows commands. SKIN: Dry and warm Triage Information Reviewed: Yes Vital Signs On Initial Exam: Initial Vital Signs Temp 98.2 F 06/13/16 17:15 Pulse 69 06/13/16 17:15 Resp 16 06/13/16 17:15 BP 196/116 06/13/16 17:15 Pulse Ox 99 06/13/16 17:15 Vital Signs Reviewed: Yes Diagnostics - Vital Signs Vital Signs Temp Pulse Resp BP Pulse Ox 06/13/16 19:00 53 16 156/85 97 06/13/16 18:30 61 16 182/87 99 06/13/16 18:20 18 183/99 06/13/16 18:10 169/89 06/13/16 18:02 55 14 97 06/13/16 17:15 98.2 F 69 16 196/116 99 - Laboratory Lab Results: Lab Results 06/13/16 06/13/16 06/13/16 Range/Units 18:13 18:13 18:20 WBC 5.6 (3.5-10.8) 10^3/ul RBC 4.98 (4.0-5.4) 10^6/ul Hgb 15.2 (14.0-18.0) g/dl Hct 46 (42-52) % MCV 92 (80-94) fL MCH 31 (27-31) pg MCHC 33 (31-36) g/dl RDW 14 (10.5-15) % Plt Count 135 L (150-450) 10^3/ul MPV 10 (7.4-10.4) um3 Neut % (Auto) 62.6 (38-83) % Lymph % (Auto) 24.8 L (25-47) % Curry % (Auto) 8.2 (1-9) % Eos % (Auto) 0.7 (0-6) % Baso % (Auto) 3.7 H (0-2) % Absolute Neuts (auto) 3.5 (1.5-7.7) 10^3/ul Absolute Lymphs (auto) 1.4 (1.0-4.8) 10^3/ul Absolute Monos (auto) 0.5 (0-0.8) 10^3/ul Absolute Eos (auto) 0 (0-0.6) 10^3/ul Absolute Basos (auto) 0.2 (0-0.2) 10^3/ul Absolute Nucleated RBC 0 10^3/ul Nucleated RBC % 0 Sodium (133-145) mmol/L Potassium (3.5-5.0) mmol/L Chloride (101-111) mmol/L Carbon Dioxide (22-32) mmol/L Anion Gap (2-11) mmol/L BUN (6-24) mg/dL Creatinine (0.67-1.17) mg/dL Est GFR ( Amer) (>60) Est GFR (Non-Af Amer) (>60) BUN/Creatinine Ratio (8-20) Glucose (70-100) mg/dL Calcium (8.6-10.3) mg/dL Magnesium (1.9-2.7) mg/dL Total Bilirubin (0.2-1.0) mg/dL AST (13-39) U/L ALT (7-52) U/L Alkaline Phosphatase (34-104) U/L Ammonia (16-53) mol/L Total Creatine Kinase (10-223) U/L Troponin I (<0.04) ng/mL B-Natriuretic Peptide ( - 100) pg/mL Total Protein (6.4-8.9) g/dL Albumin (3.2-5.2) g/dL Globulin (2-4) g/dL Albumin/Globulin Ratio (1-3) TSH Urine Color Yellow Urine Appearance Clear Urine pH 6.0 (5-9) Ur Specific [place] 1.010 (1.010-1.030) Urine Protein Negative (Negative) Urine Ketones Negative (Negative) Urine Blood Negative (Negative) Urine Nitrate Negative (Negative) Urine Bilirubin Negative (Negative) Urine Urobilinogen Negative (Negative) Ur Leukocyte Esterase Negative (Negative) Urine Glucose Negative (Negative) Urine Opiates Screen None detected (None Detect) Ur Barbiturates Screen None detected (None Detect) Ur Phencyclidine Scrn None detected (None Detect) Ur Amphetamines Screen None detected (None Detect) U Benzodiazepines Scrn None detected (None Detect) Urine Cocaine Screen None detected (None Detect) U Cannabinoids Screen None detected (None Detect) 06/13/16 06/13/16 Range/Units 18:20 18:20 WBC (3.5-10.8) 10^3/ul RBC (4.0-5.4) 10^6/ul Hgb (14.0-18.0) g/dl Hct (42-52) % MCV (80-94) fL MCH (27-31) pg MCHC (31-36) g/dl RDW (10.5-15) % Plt Count (150-450) 10^3/ul MPV (7.4-10.4) um3 Neut % (Auto) (38-83) % Lymph % (Auto) (25-47) % Curry % (Auto) (1-9) % Eos % (Auto) (0-6) % Baso % (Auto) (0-2) % Absolute Neuts (auto) (1.5-7.7) 10^3/ul Absolute Lymphs (auto) (1.0-4.8) 10^3/ul Absolute Monos (auto) (0-0.8) 10^3/ul Absolute Eos (auto) (0-0.6) 10^3/ul Absolute Basos (auto) (0-0.2) 10^3/ul Absolute Nucleated RBC 10^3/ul Nucleated RBC % Sodium 135 (133-145) mmol/L Potassium 3.8 (3.5-5.0) mmol/L Chloride 104 (101-111) mmol/L Carbon Dioxide 25 (22-32) mmol/L Anion Gap 6 (2-11) mmol/L BUN 19 (6-24) mg/dL Creatinine 1.04 (0.67-1.17) mg/dL Est GFR ( Amer) 89.3 (>60) Est GFR (Non-Af Amer) 69.4 (>60) BUN/Creatinine Ratio 18.3 (8-20) Glucose 93 (70-100) mg/dL Calcium 9.7 (8.6-10.3) mg/dL Magnesium 2.1 (1.9-2.7) mg/dL Total Bilirubin 0.70 (0.2-1.0) mg/dL AST 31 (13-39) U/L ALT 34 (7-52) U/L Alkaline Phosphatase 54 (34-104) U/L Ammonia 40 (16-53) mol/L Total Creatine Kinase 76 (10-223) U/L Troponin I 0.01 (<0.04) ng/mL B-Natriuretic Peptide 40 ( - 100) pg/mL Total Protein 7.8 (6.4-8.9) g/dL Albumin 4.4 (3.2-5.2) g/dL Globulin 3.4 (2-4) g/dL Albumin/Globulin Ratio 1.3 (1-3) TSH Pending Urine Color Urine Appearance Urine pH (5-9) Ur Specific [place] (1.010-1.030) Urine Protein (Negative) Urine Ketones (Negative) Urine Blood (Negative) Urine Nitrate (Negative) Urine Bilirubin (Negative) Urine Urobilinogen (Negative) Ur Leukocyte Esterase (Negative) Urine Glucose (Negative) Urine Opiates Screen (None Detect) Ur Barbiturates Screen (None Detect) Ur Phencyclidine Scrn (None Detect) Ur Amphetamines Screen (None Detect) U Benzodiazepines Scrn (None Detect) Urine Cocaine Screen (None Detect) U Cannabinoids Screen (None Detect) Result Diagrams: 06/13/16 18:20 06/13/16 18:20 Lab Statement: Any lab studies that have been ordered have been reviewed, and results considered in the medical decision making process. - Radiology CXR Radiology Interpretation Completed By: Radiologist - IMPRESSION: NORMAL CHEST - CT Brain CT CT Interpretation Completed By: Radiologist - IMPRESSION: No acute intracranial findings or interval changes - EKG 17:05 Cardiac Rate: NL - at 65 bpm EKG Rhythm: Sinus Rhythm EKG Interpretation: No ST elevation Course/Dx - Course Assessment/Plan: Patient is a 76-year-old male presenting to the ED with a CC of a near-syncopal episode. Patient reports that he started "speaking gibberish " to his , then became dizzy and his lowered him to the ground. Pt then reports snoring - not on purpose - for 5 minutes, but denies LOC. He reports that he could feel his tongue moving backwards during this time. Patient currently denies headache, dizziness, chest pain, and SOB. Patient reports a similar episode about 1 week ago, and states he was admitted overnight. Blood work WNL. Head CT shows no acute intracranial pathology. CXR WNL. In the ED course, initially the patient had a BP of 210/116, therefore the pt was given hydralazine. Since the pt seemed to have a near syncope vs. a syncopal episode and hypertensive urgency, I discussed the case with Dr. Jenkins who will admit the patient for further work up and management. The BP at this time 157/87 and he feels better, therefore the pt will be admitted to Dr. Jenkins. The patient is hemodynamically stable and A&Ox3. - Differential Dx Differential Diagnoses Neuro: Positive: Cerebrovascular Accident, Transient Ischemic Attack - Diagnoses Provider Diagnoses: Syncope, Hypertensive urgency - Physician Notifications Discussed Care of Patient With: Dr. Jenkins (hospitalist) at 19:39 - agrees to admit Discharge - Discharge Plan Condition: Stable Disposition: ADMITTED TO [facility] Referrals: Jesús Carrillo MD [Primary Care Provider] - The documentation as recorded by the Keyanna ramon Erika accurately reflects the service I personally performed and the decisions made by me, Aurelio Weinstein MD.
[2016-06-13] MEDS ORDERED: Enoxaparin(*) 40 MG/0.4 ML SYR SUBCUT SCH (21:00)
[2016-06-13] MEDS ORDERED: CMCS Nebivolol TAB (NF) 2.5 MG TAB PO SCH (21:00)
--- NOTE | 2016-06-13 22:52 | HP ---
HISTORY AND PHYSICAL: DATE OF ADMISSION: 06/13/16 TIME OF EVALUATION: 1999 CHIEF COMPLAINT: Presyncopal episode. HISTORY OF PRESENT ILLNESS: This is a 76-year-old male with a past medical history of hypertension, dilated aortic root who was just admitted from to 06/08/16 for a syncopal episode who presents again for a similar episode this evening. The patient states he was in his usual state of health and this episode was not as severe as the last one, but he began feeling dizzy, talking gibberish. He held on to the rail. His was with him and because of the recent syncopal episode a week ago, she helped to lay him down. He said he started making snoring sounds, but was awake and aware of what was going on and then he began having upper extremity shaking and clenching of his mouth and he felt he could not take a deep breath. There was no color change and then this lasted for about 30 seconds to a minute. He did feel nauseated during this. Afterward, he felt calm. He stopped snoring. He was able to pull out his phone to have his call EMS. He felt weak. No urinary incontinence. No headache. He states he still feels slightly shaky. No recent URI illness. No fevers or chills. No chest pain. No shortness of breath. In regards to his last admission, the patient was diagnosed with syncopal episode and an echocardiogram that was unremarkable. His heart rate did go down into the 40s and they discontinued his diltiazem. They doubled his isosorbide to 60 and started them on amlodipine and it appears that he has been on Bystolic. The patient was not clear if he has been dosing his blood pressure medications accurately. He brought in his pill box daily containers for morning and evening. I did send these to the pharmacy and they did not identify Bystolic or amlodipine and that he is only still taking the isosorbide at 30 mg and he does continue to take the irbesartan at 300 mg. When he presented to the emergency room, he was very hypertensive at 196/116. Otherwise, the remaining review of systems is negative. In the emergency room, the patient has labs and imaging. He was given 5 mg of IV hydralazine and was referred to the hospitalist service for further evaluation. PAST MEDICAL HISTORY: 1. Recent admission from 06/07/16 to 06/08/16 for syncopal episode as mentioned above. 2. History of hypertension. 3. 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 4. Hyperlipidemia. 5. Hypothyroidism. 6. Chronic eye crusting. MEDICATIONS: According to the discharge summary what the patient should be on is: 1. Pravastatin 20 mg p.o. twice weekly. 2. Pelham-3 fatty acids 1000 mg p.o. b.i.d. 3. Bystolic 2.5 mg at bedtime. 4. Vitamin B complex 1 cap p.o. daily. 5. Imdur 60 mg p.o. daily. 6. Irbesartan 300 mg p.o. daily. 7. Vitamin D 1000 units daily. 8. Aspirin 81 mg daily. 9. Niacin 500 mg p.o. daily. 10. Minocycline 50 mg p.o. twice weekly. 11. Levothyroxine 175 mcg p.o. daily. 12. Amlodipine 5 mg p.o. daily. According to his pill bottle box, the patient is on several supplements, not all of them could be entirely identified including fish oil. He is also on aspirin, minocycline, pravastatin, fish oil, irbesartan 300 mg, levothyroxine 175 mcg and isosorbide 30 mg. ALLERGIES: No known drug allergies. FAMILY HISTORY: Father with congestive heart failure and diabetes. Mother with history of angina, breast and bone cancer. SOCIAL HISTORY: The patient lives at home with his , Nabil Lovelace, who is his healthcare proxy. He quit smoking 35 years ago. At that time, he smoked 22 years. It was about half a pack per day, just drink about 2 to 3 drinks per day. Code status was full code. 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 He occasionally smokes marijuana. REVIEW OF SYSTEMS: As mentioned in the HPI. PHYSICAL EXAMINATION GENERAL: In no acute distress, resting comfortably with the at the bedside. VITAL SIGNS: Temp 98.2, pulse rate 83, respiratory rate 19, oxygen saturation 97 % on room air, blood pressure 157/87. HEENT: Pupils are equal and reactive, anicteric. Head: Normocephalic. Oropharynx: Mucous membranes are moist. No erythema or exudate NECK: Supple. No lymphadenopathy. LUNGS: Clear to auscultation. No wheezes, rhonchi or rales. HEART: Regular rate and rhythm. Systolic murmur most prominent at the right sternal base. No carotid bruits. ABDOMEN: Soft, nontender, nondistended. EXTREMITIES: No clubbing, cyanosis or edema, +2 DPs. NEUROLOGIC: Alert and oriented x3. No focal neurologic deficits. Negative pronator drift. Upper and lower muscle strengths are equal and symmetric. LABORATORY DATA/DIAGNOSTIC STUDIES: White count 5.6, hemoglobin 15.2, hematocrit 46, platelets 135. Sodium 135, potassium 3.8, chloride 104, bicarb 25, BUN 19, creatinine 1.14, troponin 0.01, TSH 5.19. Urinalysis is unremarkable. Toxicology is negative. Head CT, no acute intracranial findings or interval change. Chest x-ray shows normal chest. EKG shows normal sinus rhythm with a rate of 65. ASSESSMENT AND PLAN: This is a 76-year-old male with a past medical history of a recent syncopal episode with unknown etiology, hypertension, and dilated aortic root who presents again for a similar episode of presyncope. Presyncopal. Assessment: Unclear etiology behind these episodes. The patient presented hypertensive, could be rebound hypertension from hypotension, although it seems that he is not on the antihypertensive medication that he was prescribed at discharge. This could be hypertensive encephalopathy. The other possibility is seizure disorder, could be neurogenic syncope. The patient is asymptomatic at this time. Plan: We will admit him to telemetry, trend his troponin, obtain an EEG. I consulted neurology who will sign out to Dr. Gomez. They did not feel that this was a typical seizure. I am not sure if a dilated aortic root should be reevaluated as it was not addressed on his last admission with the echocardiogram, getting a repeat CAT scan if this could be affiliated with this , may consider getting touch base with his shoe sprayer. I am going to put him back on the antihypertensive regimen but will hold the amlodipine. We will watch his heart rate overnight. His Imdur is 60 mg daily, irbesartan 300 mg daily. This may be too much for him, but we will watch closely. CHRONIC MEDICAL PROBLEMS: 1. Hypertension as mentioned, resume his antihypertensive as mentioned above. 2. Hyperlipidemia, we will hold his pravastatin as he only takes it twice weekly. Continue his aspirin. We will hold his supplements while he is an inpatient. 3. FEN: Continue heart healthy diet. 4. DVT prophylaxis: High risk, we will put him on Lovenox subcu daily. 5. Code status: Full code. PATIENT TIME: Greater than 60 minutes spent doing the history and physical, more than half the time spent in direct patient contact. CC: Jesús Carrillo MD* [id number]/CPS #: [id number] BRYAN
[2016-06-14] MEDS: Isosorbide Mononitrate ER TAB* 60 MG PO SCH ×2 (00:27→10:13)
--- NOTE | 2016-06-14 04:17 | PN ---
Progress Note - Progress Note Note: Noted to have HR sustaining in 40s, asymptomatic. Will d/c his bystolic.
[2016-06-14] MEDS: Levothyroxine TAB* 100 MCG TAB PO SCH (06:08)
[2016-06-14] MEDS: Levothyroxine TAB* 75 MCG TAB PO SCH (06:09)
[2016-06-14 09:17] LABS: Prolactin 8.4 ng/mL (1.0-20.0)
[2016-06-14] MEDS: Losartan TAB* 25 MG PO SCH (10:12)
[2016-06-14] MEDS: Aspirin EC Low Dose* 81 MG TAB.EC PO SCH (10:12)
--- NOTE | 2016-06-14 15:24 | PN ---
Subjective Date of Service: 06/14/16 Interval History: This is a 76 yo gentleman with a h/o HTN, HLD, hypothyroidism and an ectatic aortic root who presented with what was described as a presyncopal episode. He had an episode of dizziness and his helped him get to the floor. His speech was nonsensical and his upper extremities shook. His pattern of breathing was similar to snoring. Symptoms lasted several seconds. He was quite hypertensive when he reached the emergency department and treated with hydralazine. He had another similar episode last night at ~4a that lasted several minutes. There was no tremor, but speech was nonsensical and patient remained alert through out and recalls the episode well. Then, this afternoon, while speaking to Dr Gomez, he had another episode. He again, remained alert and was able to follow commands, he had no focal neurologic deficits apart from his speech at the time. He was hypertensive at the time with sBP ~180 mmHg. On telemetry , patient appears to have entered a junctional rhythm with retrograde Pwaves buried in the ST segment, giving it an abnormal appearance. His Bystolic was resumed last night and he became bradycardic with a rate in the 40s, so this was discontinued again. Objective Active Medications: Acetaminophen (Tylenol Tab*) 650 mg PO Q4H PRN PRN Reason: FEVER/PAIN Al Hydrox/Mg Hydrox/Simethicone (Maalox Plus*) 30 ml PO Q6H PRN PRN Reason: INDIGESTION Amlodipine Besylate (Norvasc Tab*) 5 mg PO DAILY [facility] Aspirin (Aspirin Ec Low Dose*) 81 mg PO DAILY [facility] Last Admin: 06/14/16 10:12 Dose: 81 mg Docusate Sodium (Colace Cap*) 100 mg PO BID PRN PRN Reason: CONSTIPATION Enoxaparin Sodium (Lovenox(*)) 40 mg SUBCUT Q24H [facility] Last Admin: 06/14/16 00:15 Dose: 40 mg Levothyroxine Sodium (Synthroid Tab*) 100 mcg PO DAILY@0600 [facility] Last Admin: 06/14/16 06:08 Dose: 100 mcg Levothyroxine Sodium (Synthroid Tab*) 75 mcg PO DAILY@0600 [facility] Last Admin: 06/14/16 06:09 Dose: 75 mcg Losartan Potassium (Cozaar Tab*) 100 mg PO DAILY [facility] Last Admin: 06/14/16 10:12 Dose: 100 mg Ondansetron HCl (Zofran Inj*) 4 mg IV Q4H PRN PRN Reason: NAUSEA/VOMITING Senna (Senokot Tab*) 1 tab PO BID PRN PRN Reason: CONSTIPATION Vital Signs: Temp Pulse Resp BP Pulse Ox 98.0 F 50 18 162/89 99 06/14/16 11:36 06/14/16 11:36 06/14/16 11:36 06/14/16 11:36 06/14/16 11:36 Oxygen Devices in Use Now: None Appearance: Well appearing elderly gentleman who appears younger than stated age and is accompanied by his . In NAD Neck: NL Appearance and Movements; NL JVP Respiratory: Symmetrical Chest Expansion and Respiratory Effort, Clear to Auscultation Cardiovascular: NL Sounds; No Murmurs; No JVD, RRR Abdominal: NL Sounds; No Tenderness; No Distention Extremities: No Edema Skin: No Rash or Ulcers Neurological: Alert and Oriented x 3, - - CN II-XII grossly intact, no acute deficits appreciated Result Diagrams: 06/13/16 18:20 06/13/16 18:20 Additional Lab and Data: . Diagnostic Imaging: CT brain - NAD EEG - no epileptiform activity Echo - final report pending, calcified plaque in the ascending aorta Assess/Plan/Problems-Billing Assessment: This is a 76 yo gentleman with a known ectatic aortic root with HTN, HLD and hypothyroidism admitted earlier this month with a syncopal episode who returns with a presyncopal epidsode yesterday. - Patient Problems (1) Speech abnormality Comment: With presyncope Etiology is not clear He entered what appears to be a junctional rhythm during the episode witnessed by Dr Gomez but rate remains in 80s with associated hypertension Trop mildly elevated No evidence of dissection of proximal aorta on echo, there is a large calcified plaque proximal to the L common carotid Unlikely to be seizure activity Discussed case in detail with both Dr Gomez and Dr Salas MRI of the brain with MRA of the head and neck pending at this time Will work to manage BP and added Plavix to ASA at this time (2) HTN (hypertension) Comment: Quite hypertensive at admission and acutely today Discussed with Dr Salas Will dc isosorbide Restart amlodipine, continue ARB Avoid AV rick blocking agents with h/o bradycardia (3) HLD (hyperlipidemia) (4) Hypothyroidism Comment: TSH 5.1 Cont current dose of levothyroxine (5) Thrombocytopenia Comment: Platelet count 135K Appears stable when compared to prior hospitalization Status and Disposition: Further workup pending and patient is still intermittently symptomatic. Will convert to inpatient status. Unsure of discharge timing at this moment.
--- NOTE | 2016-06-14 15:36 | ECHO ---
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 This is a LIMITED study to assess the aortic root and LV wall motion. Technical Comments: The study quality is fair. Left Ventricle: Global left ventricular wall motion and contractility are within normal limits. There is normal left ventricular systolic function. The estimated ejection fraction is 55-60%. Aortic Valve: The aortic valve is trileaflet. The aortic valve leaflets are mildly thickened. There is no evidence of aortic regurgitation. Aorta: There is moderate dilatation of the ascending aorta. at 4.3 cm. There is no dilatation of the aortic arch. There is mild dilatation of the aortic root. Conclusions Global left ventricular wall motion and contractility are within normal limits. There is normal left ventricular systolic function. The estimated ejection fraction is 55-60%. The aortic valve leaflets are mildly thickened. There is no evidence of aortic regurgitation. There is moderate dilatation of the ascending aorta. at 4.3 cm. Calcified plaqued at the top of aortic arch between inominate artery and left carotid artery Measuring 1.2 X 1.4 cm (this plaque is seen on CTA chest 12/2015) Compared to study of 08/2013, the aortic arch has increased for 3.9 to 4.3 cm Measurements Name Value Normal Range Aortic Annulus 2.5 cm (1.4 - 2.6) Ao root diameter (2D) 3.7 cm (2.1 - 3.5) Ascending Ao 4.3 cm (2.1 - 3.4) Aortic arch 2.6 cm (1.8 - 3.4)
[2016-06-14] MEDS ORDERED: Gadobenate* (CONTRAST) 529 MG/ML 10 ML SDV IV ONE (15:37)
[2016-06-14] MEDS ORDERED: Clopidogrel TAB* 75 MG PO SCH (16:00)
--- NOTE | 2016-06-14 16:49 | RAD ---
INDICATION: Syncope COMPARISON: MRI brain same date TECHNIQUE: 3-D phase contrast, axial source images was acquired. Reconstructed images of the anterior posterior circulation were generated. FINDINGS: Right carotid: The carotid artery at the skull base, carotid siphon, and carotid termination appear normal. Left carotid: The carotid artery at the skull base, carotid siphon, and carotid termination appear normal. Right middle and anterior cerebral arteries: There are no MR angiographic abnormalities of the middle or anterior cerebral arteries. Left middle and anterior cerebral arteries: There are no MR angiographic abnormalities of the middle or anterior cerebral arteries Right vertebral: The MR angiographic appearance of the visualized vertebral artery is normal. Left vertebral: The MR angiographic appearance of the visualized vertebral artery is normal. Basilar artery: The basilar artery and basilar tip appear normal. Posterior cerebral arteries: The distal distribution of the right and left posterior cerebral arteries is normal. [place]: The MR angiographic appearance of the [place] is normal. Source images show no focal brain parenchymal abnormalities or abnormal areas of enhancement. IMPRESSION: NO MR ANGIOGRAPHIC ABNORMALITIES
--- NOTE | 2016-06-14 16:52 | RAD ---
INDICATION: Syncope COMPARISON: MRI brain same date TECHNIQUE: Axial 2-D flight and 3-D uras-[id number]-pmlqse SLAB imaging of the neck was performed with coronal and sagittal reconstructions. 19 mL of ProHance was utilized FINDINGS: Arch: Limited evaluation of the aortic arch demonstrates no MR angiography and malleolus. Left carotid: The left common carotid artery, carotid bifurcation, and internal carotid artery are widely patent to the level of the skull base. There are no MR angiography abnormalities. Right carotid: The right common carotid artery, carotid bifurcation, and internal carotid artery are widely patent to the level of the skull base. There are no MR angiogram abnormalities. Vertebrobasilar: The vertebral arteries and visualized basilar artery are patent. There are no MR angiographic abnormalities. IMPRESSION: NO MR ANGIOGRAPHIC ABNORMALITIES
--- NOTE | 2016-06-14 17:21 | CONS ---
NEUROLOGY CONSULTATION: DATE OF CONSULT: 06/14/16 LOCATION: He is an inpatient. He is in room 450. REFERRING PROVIDER: Dr. Jenkins. CHIEF COMPLAINT: Episodes of shaking and inability to speak. HISTORY OF PRESENT ILLNESS: Lm Lovelace is a 76-year-old right-handed man who was admitted yesterday for the second time in about a week for episodes of diminished ability to function. Specifically, the day of admission, he was out walking with his in [facility]. He started to exhibit some shaking of his upper limbs and difficulty producing coherent language, speaking "gibberish. " His eased him to the ground. He had some clenching of his upper extremities, but no jerking movements and he was not able to speak other than make nonsensible sounds for 5 to perhaps as much as 10 minutes. After that, he was able to immediately follow commands and gave his his keys and turned on the cellphone for her. He was aware of the entire event from his perspective and there was no loss of awareness. He did not have any dizziness, lightheadedness, or chest pain. There was some guttural breathing at one point. He was brought to the hospital and admitted. Last night, he woke, perhaps from a dream and was unable to produce words again. He summoned his nurse and apparently he was able to speak within a few minutes of their arrival. His rhythm strip showed bradycardia at about 40 according to verbal reports. He was hospitalized just about a week ago with a similar episode. He was out in the yard doing some work. He developed difficulty producing speech once again and was eased to the ground or made it to the ground by himself. Again, there was no loss of consciousness and he was unable to produce coherent speech for 5 to perhaps 10 minutes. He developed some jerking motions of both upper extremities during the event and was quite aware of it. Again, he rapidly recovered without fatigue or confusion. There had been no prior episodes before last week. There is no history of seizures, head trauma, meningitis, or encephalitis. There is no prior history of stroke. He has a history of hypertension, but not of heart disease. Some of his hypertensive medications had been changed in response to these episodes over the last couple of weeks. PAST MEDICAL HISTORY: Notable for hypertension, dilated aortic root with CTA and echocardiograms done to follow it. Hyperlipidemia, hypothyroidism. MEDICATIONS: At home prior to admission include: 1. Pravastatin 20 mg p.o. 2 days per week. 2. Bystolic 2.5 mg p.o. daily. 3. Imdur 60 mg p.o. daily. 4. Irbesartan 300 mg p.o. daily. 5. Vitamin D 1000 units p.o. daily. 6. Aspirin 81 mg p.o. daily. 7. Niacin 500 mg p.o. daily. 8. Minocycline 50 mg p.o. twice per week. 9. Levothyroxine 175 mcg p.o. daily. 10. Amlodipine 5 mg p.o. daily. ALLERGIES: He does not have any drug allergies. FAMILY HISTORY: Negative for epilepsy. REVIEW OF SYSTEMS: Negative for head trauma, shortness of breath, chest pain, or dizziness. PHYSICAL EXAM: He is well nourished and well hydrated. Most recent temperature 98.0 orally, blood pressure was prior to our visit 162/90, heart rates running 50 to 60 and in sinus. Heart is in a regular rate and rhythm without murmurs heard. There are no supraclavicular bruits. Carotid pulses are intact and no carotid bruits. Oral mucosa is moist and there is no oral trauma. On neurological exam, pupils, fundi, and eye movements are normal. Visual feliciano are full to confrontation. Facial musculature is intact and symmetric as is facial sensation. Palate and tongue appear normal and speech is clear without dysarthria other than the episode described below. Hearing seems intact and neck strength is intact as well. Motor exam reveals normal muscle tone and strength proximally and distally in the upper and lower extremities. He can walk on his heels and toes. There is no spasticity in the limbs. There is no rest tremor. Diov-ba-vnii maneuver is limited orthopedically, but otherwise normal. Sensory exam is notable for moderate vibratory loss in the feet and diminished light touch in the toes. Proprioception and pin discrimination are normal. Reflexes are intact and symmetric other than absent ankle reflexes. Plantar responses flexor on the right and equivocal on the left. Standard gait is normal. Tandem gait is mildly unsteady. He is alert and oriented and a good detailed historian. Memory is intact and language is fluent. He has good attention, concentration, and adequate fund of knowledge. As I was explaining my impression and plan for workup, he had an episode. He started to in a seated position have forced non-speech sounds that were repeated over and over. There were no actually paraphasic errors or recognizable syllables. He was clearly distressed and was able to follow commands and seemed alert the whole time. He had no pronator drift and contracted visually to command. At the end of the episode which lasted perhaps 7 or 8 minutes, he said "help me." He became diaphoretic near the end of the episode. We were able to check his blood pressure near the end of the episode and it was about 180/80 on one count and 190/90 on the second. His heart rate seemed regular to auscultation and by pulse running about 60 beats per minute. DIAGNOSTIC STUDIES/LAB DATA: Reviewed includes an unremarkable chemistry profile, troponin early this morning was slightly up at 0.04. Rest of the chemistries are unremarkable. TSH on 06/13/16 was normal at 5.19. LDL on was 142 and total cholesterol 218. CBC normal other than platelet count of 135,000 on 06/13/16. CT scan of the brain was reviewed, which looks to be a normal CAT scan. Reviewed his rhythm strip when he had the event of inability to speak coherently and there may be some ST changes. IMPRESSION: Possible anginal equivalent or episode of decreased cardiac output from a cardiac event. I reviewed his EEG after I saw him and that looks normal. I think it reasonable to get an MRI of his brain, but I would pursue a cardiac workup further at this point based on his event and the corresponding rhythm strip during it. I have discussed my impression with Roberto Carbajal NP , and we will continue to follow along with this interesting and unusual case. CC: Dr. Carrillo * [id number]/[facility] #: [id number] BRYAN
[2016-06-14] MEDS: amLODIPine TAB* 5 MG PO SCH (17:39)
[2016-06-14] MEDS ORDERED: levETIRAcetam TAB* 500 MG PO ONE (18:57)
--- NOTE | 2016-06-14 19:36 | PN ---
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 Discussed this finding with the patient. Presenting symptoms likely represent focal seizure activity. Will initiate Keppra. Stop Plavix and Lovenox. Contrasted MRI of the brain ordered for tomorrow as well as contrasted CT of the chest/abd/pelvis to evaluate for possible primary source of malignancy. Will require neurosurgery consult following results of MRI.
--- NOTE | 2016-06-14 21:58 | CONS ---
CARDIOLOGY CONSULTATION: DATE OF CONSULT: 06/14/16 INDICATION FOR CONSULTATION: Abnormal EKG, TIA. HISTORY OF PRESENT ILLNESS: The patient is a 76-year-old gentleman with a history of hypertension, history of dilated ascending aorta, who was admitted to the hospital with a neurologic event. The patient was noted to have episodes of garbled speech and bilateral arm shakiness. He was admitted to the hospital for observation. The patient was being interviewed by Dr. Gomez from Neurology when he had one of these events. During that time, his blood pressure was 180/70. His telemetry EKG showed a narrow complex junctional rhythm at 100 beats a minute with a retrograde P wave just before the T wave on his EKG. Other times, his telemetry shows normal sinus rhythm. The patient does have a history of a dilated ascending aorta. The patient did have an echocardiogram today which demonstrated that his ascending aorta measured 4.3 cm , but it also showed a calcified plaque at the superior aspect of his aortic arch just between the innominate artery and the left carotid artery. The patient did not have any cardiac symptoms suggestive of a significant cardiac event. He denied any chest pain. No shortness of breath. No palpitations. No lightheadedness, dizziness, or syncope. PAST MEDICAL HISTORY: Significant for: 1. Hypertension. 2. Dilated ascending aorta. 3. Hyperlipidemia. 4. Hypothyroidism. 5. He was admitted in the end of May for a syncopal episode, likely the same episode that he was having that was witnessed by Dr. Gomez. OUTPATIENT MEDICATIONS: 1. Pravastatin 20 mg twice a week. 2. [place]-3 fatty acid. 3. Bystolic 2.5 mg a day. 4. Imdur 60 mg a day. 5. Irbesartan 300 mg a day. 6. Aspirin 81 mg a day. 7. Niacin 500 mg a day. 8. Minocycline 50 mg twice weekly. 9. Levothyroxine 175 mcg a day. 10. Amlodipine 5 mg a day. ALLERGIES: No known drug allergies. SOCIAL HISTORY: He is . He has a distant history of smoking. 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 He occasionally smokes marijuana. PHYSICAL EXAM: Height is 5 feet 10 inches, weight is 193 pounds, temperature 98 , heart rate is 55, blood pressure 162/89, respiratory rate is 18. Sclerae anicteric. Oropharynx is pink without erythema. Carotids are 2+ without bruits. JVD is normal. Thyroid is normal. Cardiac Exam: S1, S2 without any murmurs, rubs, or gallops. Lungs are clear to auscultation bilaterally with no dullness to percussion. Abdomen is soft, nontender, nondistended with normoactive bowel sounds. Extremities show no edema. He has 2+ pulses throughout. The patient is awake, alert, and oriented. DIAGNOSTIC STUDIES/LAB DATA: CBC within normal limits. Chemistries: Within normal limits. His initial troponin level was 0.01, second troponin 0.04, third troponin 0.01. TSH 5.19. EKG demonstrates normal sinus rhythm with normal axis and intervals. The patient did have an echocardiogram today which demonstrated normal LV size and systolic function, normal aortic and mitral valve. His aortic arch demonstrates enlargement at 5.3 cm. He does have a calcified plaque at his aortic arch measuring 1.2 cm x 1.4 cm. IMPRESSION: This is a 76-year-old gentleman who is admitted to the hospital with episodes of garbled speech and bilateral arm shakiness. The origin of these symptoms is unclear at this time. The fact that his EKG goes from a normal sinus rhythm to an accelerated narrow complex junctional rhythm is of no concern. His blood pressure was elevated during his procedure. His change in rhythm had no evidence of decreased cerebral perfusion. His minimally elevated troponin level is of no concern at this time. For now, my recommendation is to concentrate on blood pressure control as some of his symptoms may be related to hypertensive urgency. The patient is on amlodipine and irbesartan. It is recommended that the [facility]. I would avoid AV rick blocking agents as there is some concern regarding conduction abnormalities. Further investigation of his aortic arch may be warranted. I am not quite sure a transesophageal echocardiogram would give any more information regarding this. The patient will continue to follow up as an outpatient with Dr. David regarding blood pressure control. The patient does not require repair of his ascending aorta at this time. CC: Dr. Magaly David; Dr. Jesús Carrillo* [id number]/[facility] #: [id number] [facility]
[2016-06-15] MEDS: Levothyroxine TAB* 100 MCG TAB PO SCH (05:36)
[2016-06-15] MEDS: Levothyroxine TAB* 75 MCG TAB PO SCH (05:36)
--- NOTE | 2016-06-15 07:42 | RAD ---
HISTORY: TIA, syncope COMPARISONS: Head CT dated June 13, 2016 TECHNIQUE: The following sequences were obtained of the head: Sagittal T1-weighted images, axial T2-weighted images, axial FLAIR images, axial susceptibility weighted images, axial T1-weighted images. Additionally, axial diffusion-weighted images were obtained with calculated apparent diffusion coefficients. FINDINGS: HEMORRHAGE/INFARCT: There is no hemorrhage or acute infarct. MASSES/SHIFT: There is a focal area of cortical thickening along the left superior frontal gyrus, with an adjacent focus within the left precentral gyrus. The more inferior lesion measures 3.4 x 1.7 x 1.3 cm in size. The precentral gyrus lesion measures approximately 1.5 x 0.8 cm. EXTRA-AXIAL SPACES/MENINGES: There are no extra-axial fluid collections. SULCI AND VENTRICLES: The sulci and ventricles are normal in size and position for the patient's stated age. CEREBRUM: There is patchy limited T2/FLAIR signal in the periventricular and subcortical white matter. As noted above, there are focal areas of cortical thickening with elevated signal in the left superior frontal gyrus and precentral gyrus. BRAINSTEM: There are no focal parenchymal abnormalities. CEREBELLUM: There are no focal parenchymal abnormalities. The cerebellar tonsils are normal in size and position. SELLA: The sella is normal. PINEAL: The pineal region is clear. CP ANGLE/TEMPORAL BONES: The labyrinthine structures are grossly normal. VESSELS: Normal flow-voids are noted within the visualized vertebral vasculature. DIFFUSION ABNORMALITIES: There is elevated signal within the left superior frontal gyrus and precentral gyrus on the diffusion-weighted images which is felt to represent T2 shine through. There is no restricted diffusion to suggest acute infarct. PARANASAL SINUSES/MASTOIDS: The paranasal sinuses are clear. ORBITS: The orbits are unremarkable. BONES AND SOFT TISSUE: No bone or soft tissue abnormalities are noted. OTHER: None IMPRESSION: 1. FOCAL CORTICAL THICKENING WITH ELEVATED SIGNAL IN THE LEFT SUPERIOR FRONTAL GYRUS AND TO LESSER EXTENT WITHIN THE LEFT PRECENTRAL GYRUS. THE APPEARANCE IS CONCERNING FOR CORTICAL NEOPLASM. RECOMMEND FURTHER EVALUATION WITH POSTCONTRAST ENHANCED MRI OF THE BRAIN. 2. THERE IS NO RESTRICTED DIFFUSION TO SUGGEST ACUTE INFARCT. 3. THERE ARE AREAS OF ELEVATED T2/STIR SIGNAL IN THE PERIVENTRICULAR AND SUBCORTICAL WHITE MATTER. WHILE NONSPECIFIC, THE APPEARANCE IS SUGGESTIVE OF CHRONIC SMALL VESSEL ISCHEMIA
[2016-06-15] MEDS: Aspirin EC Low Dose* 81 MG TAB.EC PO SCH (07:47)
[2016-06-15] MEDS: amLODIPine TAB* 5 MG PO SCH (07:47)
[2016-06-15] MEDS: Losartan TAB* 25 MG PO SCH (07:48)
[2016-06-15] MEDS: levETIRAcetam TAB* 500 MG PO SCH ×2 (07:48→20:15)
--- NOTE | 2016-06-15 07:53 | EEG ---
ELECTROENCEPHALOGRAPHY: DATE OF STUDY: 06/14/16 REFERRING PHYSICIAN: Dr. Jenkins. LOCATION: He is an inpatient in room 450. CLINICAL PROBLEM: Episodes of shaking and garbled speech. Rule out seizure disorder. MEDICATIONS: Include: 1. Zofran. 2. Synthroid. 3. Imdur. 4. Cozaar. REPORT: This 16-channel EEG is remarkable for background activity consisting of a well-formed alpha rhythm in the posterior derivations at 9 cycles per second, which is symmetric and suppressed by eye opening. Fml-an-tzjrdest voltage bifrontal beta rhythms are noted and are symmetric. The patient drowses and intermittently sleeps with central slowing and some rudimentary sleep spindles noted. Activation procedures are not attempted. There are no focal, lateralized, or epileptiform abnormalities. CLINICAL IMPRESSION: Normal awake and briefly asleep EEG. [id number]/[facility] #: [id number] MTDD
[2016-06-15 10:08] LABS: EGFR African American 84.6 (>60); EGFR Non-African American 65.8 (>60)
--- NOTE | 2016-06-15 11:26 | RAD ---
HISTORY: Evaluate brain mass COMPARISONS: June 14, 2016 TECHNIQUE: The following sequences were obtained of the head: Sagittal, axial, and coronal T1-weighted images were obtained after contrast enhancement with a gadolinium-based intravenous contrast agent. The study is read in conjunction with the study of June 14, 2016 FINDINGS: The lesion of the left superior frontal gyrus is partially enhancing. The precentral gyrus lesion does not enhance. Elsewhere, there are no areas of abnormal enhancement. IMPRESSION: THE LEFT FRONTAL LOBE LESIONS ARE PARTIALLY ENHANCING, CONCERNING FOR FUNDRAISER NEOPLASM.
[2016-06-15] MEDS ORDERED: Iohexol 300* (CONTRAST) 10 ML SDV IV ONE (15:26)
--- NOTE | 2016-06-15 16:23 | RAD ---
INDICATION: [employer] lesion. Evaluate for primary tumor. COMPARISON: MRI brain June 15, 2016 TECHNIQUE: Axial source images were obtained from the thoracic inlet to the symphysis pubis following administration of oral and intravenous contrast. 117 mL Omnipaque 300 was utilized. Coronal and sagittal reconstructed images were acquired. CHEST FINDINGS: Neck/thyroid: The visualized neck to include the thyroid appear normal. Chest wall: There are no acute abnormalities of the bony thorax or chest wall. There is no supraclavicular, infraclavicular, or axillary lymphadenopathy. Lungs : There are no pulmonary parenchymal masses or infiltrates. The pulmonary interstitium appears normal. There are no endobronchial lesions. Cardiomediastinal structures: The heart is normal in size. There is no pericardial effusion. There is no evidence of aortic aneurysm or dissection. The pulmonary vessels appear normal. There is no mediastinal or hilar adenopathy. The esophagus appears normal. Pleura : There are no pleural-based masses or effusions. ABDOMINAL/PELVIC FINDINGS: Liver: The liver is normal in size. There are no masses. There is no ductal dilatation. Gallbladder: The gallbladder is contracted. Correlation is therefore limited. Spleen: The spleen is normal in size. There are no masses. Pancreas: There is no evidence of pancreatic mass or ductal dilatation. Adrenal glands: There is no evidence of adrenal mass. Kidneys: The kidneys are normal in size and position. There are prompt nephrograms and there is prompt excretion bilaterally. There is a 1.3 cm left renal cortical cyst. There is no evidence of nephrolithiasis. Adenopathy: There is no evidence of adenopathy by size criteria. Fluid collections: There are no free or localized fluid collections. Vessels:There are atherosclerotic changes of the aorta. There is no focal aneurysm. The IVC is unremarkable GI tract: The stomach and small bowel are unremarkable. There is a segment of sigmoid colon in a left inguinal hernia. There is no obstruction. There is interposition of colon anterior to the liver in the right upper quadrant. There are scattered diverticula of the colon. Pelvic organs: The prostate and seminal vesicles appear normal Bladder: There are no bladder masses. Abdominal and pelvic soft tissues: There is a left inguinal hernia containing Osseous structures: There are no acute osseous findings. There is degenerative disease at L5-S1 IMPRESSION: 1. No evidence of mass or adenopathy in the chest 2. No evidence of mass or adenopathy in the abdomen or pelvis. 3. Left inguinal hernia containing bowel. No obstruction. 4. Scattered diverticula. No CT evidence of diverticulitis.
--- NOTE | 2016-06-15 16:58 | PN ---
Subjective Date of Service: 06/15/16 Interval History: Patient seen and examined at bedside. Pt denies any episodes of syncope or speech disturbances today. Denies fever, chills, shortness of breath, chest discomfort, N/V/D. No furhter "episodes" or cardiac arrhythmias noted. Tele: Sinus jayme, rate 40-50's. Family History: Unchanged from Admission Social History: Unchanged from Admission Past Medical History: Unchanged from Admission Objective Active Medications: Acetaminophen (Tylenol Tab*) 650 mg PO Q4H PRN Reason: FEVER/PAIN Al Hydrox/Mg Hydrox/Simethicone (Maalox Plus*) 30 ml PO Q6H PRN Reason: INDIGESTION Amlodipine Besylate (Norvasc Tab*) 5 mg PO DAILY DINO Aspirin (Aspirin Ec Low Dose*) 81 mg PO DAILY DINO Docusate Sodium (Colace Cap*) 100 mg PO BID PRN Reason: CONSTIPATION Levetiracetam (Keppra Tab*) 500 mg PO BID DINO Levothyroxine Sodium (Synthroid Tab*) 100 mcg PO DAILY@0600 DINO Levothyroxine Sodium (Synthroid Tab*) 75 mcg PO DAILY@0600 DINO Losartan Potassium (Cozaar Tab*) 100 mg PO DAILY DINO Ondansetron HCl (Zofran Inj*) 4 mg IV Q4H PRN Reason: NAUSEA/VOMITING Senna (Senokot Tab*) 1 tab PO BID PRN Reason: CONSTIPATION Vital Signs 06/14/16 06/14/16 06/15/16 20:00 20:21 00:28 Temperature 98.8 F 98.3 F Pulse Rate 55 48 Respiratory 16 20 Rate Blood Pressure 143/92 133/72 (mmHg) O2 Sat by Pulse 99 99 Oximetry 06/15/16 06/15/16 06/15/16 04:02 07:28 07:58 Temperature 97.8 F 97.5 F Pulse Rate 56 51 Respiratory 20 18 18 Rate Blood Pressure 132/94 140/84 (mmHg) O2 Sat by Pulse 100 98 Oximetry 06/15/16 06/15/16 11:51 15:32 Temperature 98.2 F 97.5 F Pulse Rate 49 47 Respiratory 18 16 Rate Blood Pressure 131/84 146/77 (mmHg) O2 Sat by Pulse 96 98 Oximetry Oxygen Devices in Use Now: None Appearance: NAD, laying in bed Eyes: No Scleral Icterus, PERRLA Ears/Nose/Mouth/Throat: NL Teeth, Lips, Gums, Mucous Membranes Moist Neck: NL Appearance and Movements; NL JVP, Trachea Midline Respiratory: Symmetrical Chest Expansion and Respiratory Effort, Clear to Auscultation Cardiovascular: NL Sounds; No Murmurs; No JVD, RRR Abdominal: NL Sounds; No Tenderness; No Distention Extremities: No Edema Skin: No Rash or Ulcers Neurological: Alert and Oriented x 3, NL Muscle Strength and Tone Lines/Tubes/Other Access: Clean, Dry and Intact Peripheral IV - site benign Nutrition: Taking PO's Result Diagrams: 06/13/16 18:20 06/15/16 09:37 Additional Lab and Data: . Diagnostic Imaging: CT brain - NAD EEG - no epileptiform activity Echo - calcified plaque in the ascending aorta MRI brain - focal cortical thickening, lesions in left frontal lobe CT chest/ABD/Pelvis - no masses Assess/Plan/Problems-Billing Assessment: Mr. Wei is a 76 yo gentleman with a known ectatic aortic root with HTN, HLD and hypothyroidism admitted earlier this month with a syncopal episode who returns with a presyncopal epidsode. - Patient Problems (1) Speech abnormality Comment: - With presyncope - Etiology is not clear - He entered what appears to be a junctional rhythm during the episode witnessed by Dr Gomez but rate remains in 80s with associated hypertension - Trop mildly elevated - No evidence of dissection of proximal aorta on echo, there is a large calcified plaque proximal to the L common carotid - EEG normal, will continue Keppra for now - MRI of the brain showing cortical thickening, with MRA of the head and neck with no acute findings. - Appreciate Neurology and Cardiology input - MRI brain with contrast shows frontal lobe lesions, neurosurgery will consult (2) HTN (hypertension) Code(s): I10 - ESSENTIAL (PRIMARY) HYPERTENSION SNOMED Code(s): 16986667 Comment: - Quite hypertensive at admission and acutely today - Discussed with Dr Salas - Will dc isosorbide - Continue amlodipine and ARB Avoid AV rick blocking agents with h/o bradycardia (3) HLD (hyperlipidemia) Code(s): E78.5 - HYPERLIPIDEMIA, UNSPECIFIED SNOMED Code(s): 24794733 (4) Thrombocytopenia Code(s): D69.6 - THROMBOCYTOPENIA, UNSPECIFIED SNOMED Code(s): 788056857 Comment: - Platelet count 135K - Appears stable when compared to prior hospitalization (5) DVT prophylaxis Code(s): UIQ6725 - SNOMED Code(s): 287250180 Comment: - SCDs (6) Full code status Code(s): Z78.9 - OTHER SPECIFIED HEALTH STATUS SNOMED Code(s): 718544226 Status and Disposition: Inpatient. Further workup pending and patient is still intermittently symptomatic.
--- NOTE | 2016-06-16 00:12 | PN ---
NEUROLOGY FOLLOWUP NOTE: DATE OF SERVICE: 06/15/16 - ROOM #448 HOSPITALIST: Chiquita Greenberg NP CHIEF COMPLAINT: Seizures. INTERVAL HISTORY: Since yesterday, Lm had an MRI of his brain last evening, which revealed a left frontal lobe mass. There were 2 components to it to my eye and Dr. De La Cruz also interpreted 2 lesions. This led to a contrast scan today, which revealed enhancement of the lesion, particularly the portion in the frontal gyrus, but not a portion in the precentral gyrus. After review of the films with him, I do not clearly see 2 separate areas, although there are 2 components to what appears to me to be a one lesion. In any case, this led to the addition of Keppra yesterday, and he has not had one of his episodes of forced nonsensical speech since. He feels well on the medication, although he slept very well last night, might have made him a little tired. In addition, he had a CT scan of the chest, abdomen, and pelvis interpreted as normal. MEDICATIONS: Reviewed and he is now on: 1. Keppra 500 mg p.o. b.i.d. 2. Levothyroxine 75 mcg p.o. every day. 3. Losartan 100 mg p.o. every day. 4. Aspirin 81 mg p.o. every day. ASSESSMENT AND PLAN: I did not examine him today. I talked to him and his at length about the findings and implications. I told him that he has a brain tumor and it appears to probably be a primary brain tumor, but metastasis can sometimes present as a solitary lesion. I told him it maybe benign or malignant and tissue would be needed to know for certain. I recommended neurosurgical consultation Dr. Arellano will be seeing them this evening or tomorrow. We discussed surgery versus biopsy versus watchful waiting. We discussed Keppra anticonvulsant therapy including potential side effects such as mood effects and agitation, sedation, and dizziness. I told him he cannot drive because of the diagnosis of seizures for a minimum of 3 months and must notify the DMV. I answered questions about biopsy versus surgery. We talked about the possibility of surgery causing neurological deficits such as language deficits if it is near an eloquent language area. I defer to Dr. Arellano on further discussion regarding surgical potential and associated risks. Over 50% of this 35-minute visit was spent in counseling and education. I will see him in followup in my office in a couple of weeks presuming that he is discharged tomorrow. CC: Micha Arellano MD; Jesús Carrillo MD; Kendall Salas MD* [id number]/[facility] #: [id number] MTDD
[2016-06-16] MEDS: Levothyroxine TAB* 75 MCG TAB PO SCH (05:11)
[2016-06-16] MEDS: Levothyroxine TAB* 100 MCG TAB PO SCH (05:11)
[2016-06-16] MEDS: amLODIPine TAB* 5 MG PO SCH (08:52)
[2016-06-16] MEDS: levETIRAcetam TAB* 500 MG PO SCH ×2 (08:53→20:04)
[2016-06-16] MEDS: Aspirin EC Low Dose* 81 MG TAB.EC PO SCH (08:53)
[2016-06-16] MEDS: Losartan TAB* 25 MG PO SCH (08:53)
--- NOTE | 2016-06-16 16:38 | PN ---
Subjective Date of Service: 06/16/16 Interval History: Patient seen and examined at bedside. Pt states that he continues to feel off balance when ambulating. His would feel most comfortable if he could be monitored one more night prior to being discharged and have a Physical therapy consult. Denies fever, chills, shortness of breath, chest discomfort, trouble speaking, N/V/D. Tele: Sinus rhythm to sinus jayme. Rate 40-80's. Pt was noted to be 37 while sleeping overnight. Family History: Unchanged from Admission Social History: Unchanged from Admission Past Medical History: Unchanged from Admission Objective Active Medications: Acetaminophen (Tylenol Tab*) 650 mg PO Q4H PRN Reason: FEVER/PAIN Al Hydrox/Mg Hydrox/Simethicone (Maalox Plus*) 30 ml PO Q6H PRN Reason: INDIGESTION Amlodipine Besylate (Norvasc Tab*) 5 mg PO DAILY DINO Aspirin (Aspirin Ec Low Dose*) 81 mg PO DAILY DINO Docusate Sodium (Colace Cap*) 100 mg PO BID PRN Reason: CONSTIPATION Levetiracetam (Keppra Tab*) 500 mg PO BID DINO Levothyroxine Sodium (Synthroid Tab*) 100 mcg PO DAILY@0600 DINO Levothyroxine Sodium (Synthroid Tab*) 75 mcg PO DAILY@0600 DINO Losartan Potassium (Cozaar Tab*) 100 mg PO DAILY DINO Ondansetron HCl (Zofran Inj*) 4 mg IV Q4H PRN Reason: NAUSEA/VOMITING Senna (Senokot Tab*) 1 tab PO BID PRN Reason: CONSTIPATION Vital Signs 06/15/16 06/15/16 06/15/16 19:14 19:48 23:53 Temperature 98.2 F 98.0 F Pulse Rate 51 45 Respiratory 16 17 20 Rate Blood Pressure 126/71 161/85 (mmHg) O2 Sat by Pulse 96 100 Oximetry 06/16/16 06/16/16 06/16/16 03:52 07:22 07:56 Temperature 98.0 F 97.4 F Pulse Rate 44 47 Respiratory 20 18 16 Rate Blood Pressure 134/69 149/76 (mmHg) O2 Sat by Pulse 100 98 Oximetry 06/16/16 06/16/16 11:19 15:38 Temperature 98.1 F Pulse Rate 52 Respiratory 18 26 Rate Blood Pressure 144/79 (mmHg) O2 Sat by Pulse 95 Oximetry Oxygen Devices in Use Now: None Appearance: NAD, laying in bed. Eyes: No Scleral Icterus, PERRLA Ears/Nose/Mouth/Throat: NL Teeth, Lips, Gums, Mucous Membranes Moist Neck: NL Appearance and Movements; NL JVP, Trachea Midline Respiratory: Symmetrical Chest Expansion and Respiratory Effort, Clear to Auscultation Cardiovascular: NL Sounds; No Murmurs; No JVD, RRR Extremities: No Edema Skin: No Rash or Ulcers Neurological: Alert and Oriented x 3, NL Muscle Strength and Tone Lines/Tubes/Other Access: Clean, Dry and Intact Peripheral IV - site benign Nutrition: Taking PO's Result Diagrams: 06/13/16 18:20 06/15/16 09:37 Additional Lab and Data: . Diagnostic Imaging: CT brain - NAD EEG - no epileptiform activity Echo - calcified plaque in the ascending aorta MRI brain - focal cortical thickening, lesions in left frontal lobe CT chest/ABD/Pelvis - no masses Assess/Plan/Problems-Billing Assessment: Mr. eWi is a 76 yo gentleman with a known ectatic aortic root with HTN, HLD and hypothyroidism admitted earlier this month with a syncopal episode who returns with a presyncopal epidsode. - Patient Problems (1) Brain lesion Code(s): G93.9 - DISORDER OF BRAIN, UNSPECIFIED SNOMED Code(s): 384828651 Comment: - Appreciate neurosurgery consult - Plan for an outpatient BX with Dr. Arellano next week. (2) Speech abnormality Comment: - With presyncope - Etiology is not clear - He entered what appears to be a junctional rhythm during the episode witnessed by Dr Gomez but rate remains in 80s with associated hypertension - Trop mildly elevated - No evidence of dissection of proximal aorta on echo, there is a large calcified plaque proximal to the L common carotid - EEG normal, will continue Keppra for now - MRI of the brain showing cortical thickening, with MRA of the head and neck with no acute findings. - Appreciate Neurology and Cardiology input - MRI brain with contrast shows frontal lobe lesions, neurosurgery will consult (3) HTN (hypertension) Code(s): I10 - ESSENTIAL (PRIMARY) HYPERTENSION SNOMED Code(s): 29534607 Comment: - Quite hypertensive at admission and acutely today - Discussed with Dr Salas - Will dc isosorbide - Continue amlodipine and ARB - Avoid AV rick blocking agents with h/o bradycardia (4) HLD (hyperlipidemia) Code(s): E78.5 - HYPERLIPIDEMIA, UNSPECIFIED SNOMED Code(s): 44282104 (5) Thrombocytopenia Code(s): D69.6 - THROMBOCYTOPENIA, UNSPECIFIED SNOMED Code(s): 471676664 Comment: - Platelet count 135K - Appears stable when compared to prior hospitalization (6) DVT prophylaxis Code(s): LPL8445 - SNOMED Code(s): 301316624 Comment: - SCDs (7) Full code status Code(s): Z78.9 - OTHER SPECIFIED HEALTH STATUS SNOMED Code(s): 100873234 Status and Disposition: Inpatient. Further workup pending and patient is still intermittently symptomatic. Plan for possible discharge to home in the AM.
--- NOTE | 2016-06-16 19:40 | PN ---
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
[2016-06-17] MEDS: Levothyroxine TAB* 75 MCG TAB PO SCH (05:03)
[2016-06-17] MEDS: Levothyroxine TAB* 100 MCG TAB PO SCH (05:03)
[2016-06-17] MEDS: amLODIPine TAB* 5 MG PO SCH (09:10)
[2016-06-17] MEDS: Aspirin EC Low Dose* 81 MG TAB.EC PO SCH (09:11)
[2016-06-17] MEDS: Losartan TAB* 25 MG PO SCH (09:11)
[2016-06-17] MEDS: levETIRAcetam TAB* 500 MG PO SCH (09:11)
--- NOTE | 2016-06-17 11:32 | PN ---
Subjective Date of Service: 06/17/16 Interval History: Patient seen and examined at bedside. Pt denies fever, chills, shortness of breath, chest discomfort, N/V/D. Pt was able to work with PT and was found to have no acute PT needs. He has had no further episodes. Tele: Sinus rhythm - sinus jayme. Family History: Unchanged from Admission Social History: Unchanged from Admission Past Medical History: Unchanged from Admission Objective Active Medications: Acetaminophen (Tylenol Tab*) 650 mg PO Q4H PRN Reason: FEVER/PAIN Al Hydrox/Mg Hydrox/Simethicone (Maalox Plus*) 30 ml PO Q6H PRN Reason: INDIGESTION Amlodipine Besylate (Norvasc Tab*) 5 mg PO DAILY DINO Aspirin (Aspirin Ec Low Dose*) 81 mg PO DAILY DINO Docusate Sodium (Colace Cap*) 100 mg PO BID PRN Reason: CONSTIPATION Levetiracetam (Keppra Tab*) 500 mg PO BID DINO Levothyroxine Sodium (Synthroid Tab*) 100 mcg PO DAILY@0600 DINO Levothyroxine Sodium (Synthroid Tab*) 75 mcg PO DAILY@0600 DINO Losartan Potassium (Cozaar Tab*) 100 mg PO DAILY DINO Ondansetron HCl (Zofran Inj*) 4 mg IV Q4H PRN Reason: NAUSEA/VOMITING Senna (Senokot Tab*) 1 tab PO BID PRN Reason: CONSTIPATION Vital Signs 06/16/16 06/16/16 06/16/16 15:38 18:43 20:00 Temperature 97.3 F Pulse Rate 48 Respiratory 26 26 Rate Blood Pressure 135/74 (mmHg) O2 Sat by Pulse 97 Oximetry 06/17/16 06/17/16 06/17/16 00:34 04:25 07:42 Temperature 97.7 F 97.5 F 97.5 F Pulse Rate 42 44 46 Respiratory 20 20 18 Rate Blood Pressure 130/70 128/76 131/76 (mmHg) O2 Sat by Pulse 98 97 98 Oximetry 06/17/16 08:00 Temperature Pulse Rate Respiratory 16 Rate Blood Pressure (mmHg) O2 Sat by Pulse Oximetry Oxygen Devices in Use Now: None Appearance: NAD, laying in bed Eyes: No Scleral Icterus, PERRLA Ears/Nose/Mouth/Throat: NL Teeth, Lips, Gums, Mucous Membranes Moist Neck: NL Appearance and Movements; NL JVP, Trachea Midline Respiratory: Symmetrical Chest Expansion and Respiratory Effort, Clear to Auscultation Cardiovascular: NL Sounds; No Murmurs; No JVD, RRR Abdominal: NL Sounds; No Tenderness; No Distention Extremities: No Edema Skin: No Rash or Ulcers Neurological: Alert and Oriented x 3, NL Muscle Strength and Tone Lines/Tubes/Other Access: Clean, Dry and Intact Peripheral IV - site benign Nutrition: Taking PO's Result Diagrams: 06/13/16 18:20 06/15/16 09:37 Additional Lab and Data: . Diagnostic Imaging: CT brain - NAD EEG - no epileptiform activity Echo - calcified plaque in the ascending aorta MRI brain - focal cortical thickening, lesions in left frontal lobe CT chest/ABD/Pelvis - no masses Assess/Plan/Problems-Billing Assessment: Mr. Wei is a 76 yo gentleman with a known ectatic aortic root with HTN, HLD and hypothyroidism admitted earlier this month with a syncopal episode who returns with a presyncopal epidsode. - Patient Problems (1) Brain lesion Code(s): G93.9 - DISORDER OF BRAIN, UNSPECIFIED SNOMED Code(s): 163148316 Comment: - Appreciate neurosurgery consult - Plan for an outpatient BX with Dr. Arellano next week. (2) Speech abnormality Comment: - With presyncope - Etiology is not clear - He entered what appears to be a junctional rhythm during the episode witnessed by Dr Gomez but rate remained in 80s with associated hypertension - Trop mildly elevated - No evidence of dissection of proximal aorta on echo, there is a large calcified plaque proximal to the L common carotid - EEG normal, will continue Keppra for now - MRI of the brain showing cortical thickening, with MRA of the head and neck with no acute findings. - Appreciate Neurology and Cardiology input - MRI brain with contrast shows frontal lobe lesions, neurosurgery consult (3) HTN (hypertension) Code(s): I10 - ESSENTIAL (PRIMARY) HYPERTENSION SNOMED Code(s): 92981864 Comment: - Quite hypertensive at admission and acutely today - Discussed with Dr Salas - Will dc isosorbide - Continue amlodipine and ARB - Avoid AV rick blocking agents with h/o bradycardia (4) HLD (hyperlipidemia) Code(s): E78.5 - HYPERLIPIDEMIA, UNSPECIFIED SNOMED Code(s): 95309427 (5) Thrombocytopenia Code(s): D69.6 - THROMBOCYTOPENIA, UNSPECIFIED SNOMED Code(s): 130851812 Comment: - Platelet count 135K - Appears stable when compared to prior hospitalization (6) DVT prophylaxis Code(s): [id number] - SNOMED Code(s): 398650110 Comment: - SCDs (7) Full code status Code(s): Z78.9 - OTHER SPECIFIED HEALTH STATUS SNOMED Code(s): 806833108 Status and Disposition: Inpatient. Stable for discharge to home.
[2016-06-17 11:55] VITALS: BP 150/82
--- NOTE | 2016-06-18 16:30 | DS ---
DISCHARGE SUMMARY: DATE OF ADMISSION: 06/14/16 DATE OF DISCHARGE: 06/17/16 ATTENDING PHYSICIAN: Dr. Sherrie Wang *(dictated by Chiquita Starkey NP). PRIMARY CARE PROVIDER: Dr. Jesús Carrillo. PRIMARY DIAGNOSES: 1. Presyncopal episode. 2. Seizures. 3. Left frontal brain mass. SECONDARY DIAGNOSES: 1. Hypertension. 2. Dilated aortic root. 3. Hyperlipidemia. 4. Hypothyroidism. CONSULTATIONS WHILE IN THE HOSPITAL: 1. Dr. Micha Gomez with Neurology. 2. Dr. Kendall Salas with Cardiology. 3. Dr. Micha Arellano with Neurosurgery. STUDIES WHILE IN THE HOSPITAL: 1. Brain CT on 06/13/16. Radiologist's impression: No acute intracranial findings or interval changes. 2. Chest x-ray on 06/13/16. Radiologist's impression: Normal chest. 3. Transthoracic echocardiogram on 06/14/16. Fur Vault Attendant's conclusion: Global left ventricular wall motion and contractility are within normal limits. There is normal left ventricular systolic function. The estimated ejection fraction is 55%- 60%. The aortic valve leaflets are mildly thickened. There is no evidence of aortic regurgitation. There is moderate dilation of the ascending aorta at 4.3 cm. Calcified plaque at the top of the aortic arch between innominate artery and left carotid artery measuring 1.2 x 1.4 cm (this plaque is seen on CTA chest December 2015). Compared to study of August 2013, the aortic arch has increased from 3.9 to 4.3 cm. 4. Brain MRI on 06/14/16. Radiologist's impression: Focal cortical thickening with elevated signal in the left superior frontal gyrus and to lesser extent within the left precentral gyrus. The appearance is concerning for cortical neoplasm. Recommend further evaluation with postcontrast enhanced MRI of the brain. There is no restricted diffusion to suggest acute infarcts. There are areas of elevated T2/STIR signal in the periventricular and subcortical white matter. Though nonspecific, the appearance is suggestive of chronic small vessel ischemia. 5. Head MRA on 06/14/16. Radiologist's conclusion: No MR angiographic abnormalities. 6. Electroencephalogram on 06/14/16. Neurologist's impression: Normal awake and briefly asleep EEG. 7. MRA on 06/14/16. Radiologist's impression: No MR angiographic abnormalities. 8. Chest, abdomen and pelvis CT on 06/15/16. Radiologist's impression: No evidence of mass or adenopathy in the chest. No evidence of mass or adenopathy in the abdomen or pelvis. Left inguinal hernia containing bowel. No obstruction. Scattered diverticula. No CT evidence of diverticulitis. 9. Brain MRI on 06/15/16. 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 DISCHARGE MEDICATIONS: New home medications: 1. Keppra 500 mg oral twice daily. 2. Losartan 100 mg oral daily. Continued home medications: 1. Pravastatin 1 tablet oral twice weekly. 2. Vitamin D one tablet oral daily. 3. Vitamin B complex 1 tablet oral daily. 4. Amlodipine 5 mg oral daily. 5. Aspirin 81 mg oral daily. 6. Levothyroxine 175 mcg oral daily. 7. Niacin 500 mg oral daily. 8. Minocycline 1 tablet oral twice weekly. Discontinued home medications: 1. Irbesartan. 2. Fish oil. 3. Bystolic. 4. Isosorbide. HISTORY OF PRESENT ILLNESS/HOSPITAL COURSE: Mr. Lovelace is a 76-year-old male with past medical history significant for hypertension, known dilated aortic root, who was recently admitted from June 07 to June 08 for a syncopal episode. The patient states that he has been in his usual state of health prior to his first hospitalization and after his previous discharge. The patient felt that this episode that he had was not as severe as the previous one. The patient reported feeling dizzy, and talking "gibberish". The patient' s assisted him to lie down after his previous event from the week prior. She reported he started making snoring sounds but was awake and he was aware of what was going on and then had upper extremities shaking and clinching of his mouth and he felt he could not take a deep breath. This lasted for approximately 30 seconds to a minute. The patient reported he felt nausea and then the snoring stopped. He was able to get his phone and his called EMS. The patient had no urinary incontinence. No headache. He still felt shaky. EMS came and brought the patient to the emergency room. It was noted on his previous admission for a syncopal episode, he had an echocardiogram that was unremarkable. He was noted to have heart rates into the 40s while on telemetry and had his diltiazem discontinued. The patient's isosorbide had been doubled and he was started on amlodipine in addition to his Bystolic. It is not clear if the patient had been dosing his medications appropriately. It appears that the patient was not taking Bystolic or amlodipine, as these were not located in his pill box. He was only taking isosorbide at 30 mg and he had also continued on irbesartan at 300 mg. When the patient presented to the emergency room, his blood pressure was 196/116. The patient received IV hydralazine for his elevated blood pressures while in the hospital in addition to an EKG showing a sinus rhythm with a rate of 65. A chest x-ray that was normal. A head CT showing no acute findings and lab work that was unremarkable. Hospitalists were asked to evaluate the patient for admission. While in the hospital, the patient was seen in consultation by Dr. Micha Gomez with Neurology. During Dr. Gomez's consultation with the patient, the patient had one of his spells. The patient was noted to have forced nonspeech sounds that were repeated over and over again. The patient was clearly distressed and was able to follow commands and seemed alert the whole time. He had no pronator drift and contracted visually to commands. At the end of the episode which lasted approximately 7 or 8 minutes, he said "help me. " The patient also become more diaphoretic near the end of his episode. At the end of the episode, his blood pressure was 180/80 and on repeat 190/90. The patient's heart rate was regular on auscultation and around [address] Gomez felt this could represent an episode of decreased cardiac output from a cardiac event. The patient's EEG was reviewed and normal. It was felt to be reasonable to get an MRI of the patient's brain and pursue further cardiac workup. It is to note that during the time of the patient's episode, he was noted to have a narrow complex junctional rhythm on telemetry. Due to the accelerated narrow complex junctional rhythm during the patient's episode, cardiology was asked to evaluate the patient. Cardiology felt that the patient's minimally elevated troponins were of no concern. It was recommended to concentrate on patient's blood pressure control as some of his symptoms may be related to hypertensive urgency. It was recommended to avoid AV node blocking agents and was recommended that the patient be considered for Tekturna for blood pressure control. It was also felt that further investigation of the patient's aortic arch may be warranted and that he could follow up as an outpatient for this. During the patient's stay, he had his irbesartan, Bystolic and isosorbide discontinued. The patient was started on losartan. Due to the patient's episode while Neurology was with him, he was started on Keppra for seizures. The patient underwent a contrasted MRI showing lesions in the left frontal lobe. Dr. Arellano with Neurosurgery consulted on the patient and felt that he would need to have a biopsy but this was not able to be done until next week. The patient continued to do well. His blood pressures improved during his stay. It is to note that on telemetry the patient typically was in a normal sinus rhythm to a sinus bradycardia often down into the upper 30s at night while he was sleeping. The patient was able to ambulate, had no complaints of dizziness or lightheadedness and had no further episodes after the episode that was witnessed by Dr. Gomez. It was felt that the patient could be discharged to home with a followup brain biopsy later next week. Mr. Lovelace is stable for discharge to home today. Vital signs are as follows: Temperature 97.5, heart rate 44, respiratory rate 18, O2 sat is 98% on room air , blood pressure 150/82. DISCHARGE PLAN: Mr. Lovelace will be discharged to home. Activity as tolerated. He should be on a heart healthy diet. As far as the patient's hypertension, for now he has been placed on losartan and will be continued on his previous amlodipine dose. Per Dr. Salas's recommendations, it should be considered in the future, placing the patient on Tekturna for blood pressure control and to avoid AV blocking agents. As far as the patient's possible seizure activity, he has been started on Keppra and should be continued on Keppra twice daily. He should be seen in followup with Dr. Gomez. Dr. Gomez's office will call the patient with an appointment date and time. The patient and his have been instructed to call Dr. Gomez's office to set up an appointment if they do not hear from his office next week. The patient has been instructed to not drive, swim, or climb for the next 3 months. As far as the patient's hypertension and dilated aortic root, the patient should follow with his field marketing lead, Dr. David. He has an appointment with her on June 23 at 1 p.m. As far as the patient's brain lesion, Dr. Arellano's office is setting up an appointment for a brain biopsy on June 23 and the office will call the patient with further details. The patient may continue taking his aspirin. He does not need to hold his aspirin for this procedure, per Dr. Arellano. The patient should be seen in followup by his primary care provider, Dr. Jesús Carrillo. Dr. Carrillo's office will call the patient with an appointment date and time. The patient has been asked to return to the emergency room for shortness of breath, chest discomfort, or signs of a stroke such as facial drooping, one-sided weakness or slurred speech. This is summarized report of a complex medical history and hospital stay. For further details, please see the entire medical record. TIME SPENT: Time for this discharge was 60 minutes and greater than 30 of that was spent [id number] with the patient and discussing discharge plans and instructions. CONDITION ON DISCHARGE: Stable. Reviewed by DEQUAN OVALLE 07/06/16 1112 CC: Dr. Jesús Carrillo; Dr. Micha Gomez; Dr. Micha Arellano; Dr. Magaly David* [id number]/[facility] #: [id number] [facility]IT[facility]i
== END 2016-06-17 14:45 | disposition home or self-care (01) | DRG 101 ==
LOC: ED 17:11 → MEDTELE 20:24 → OBSVTOIN 06-14 15:02
PROVIDERS: ADMIT Pediatrics; ATTEND Internal Medicine
DX: G40.109 Localization-related (focal) (partial) symptomatic epilepsy and epileptic syndromes with simple partial seizures, not intractable, without status epilepticus (principal); D69.6 Thrombocytopenia, unspecified; G93.9 Disorder of brain, unspecified; I10 Essential (primary) hypertension; I16.0 Hypertensive urgency; E78.5 Hyperlipidemia, unspecified; R47.89 Other speech disturbances; E03.9 Hypothyroidism, unspecified; I77.819 Aortic ectasia, unspecified site; Z79.82 Long term (current) use of aspirin; Z79.899 Other long term (current) drug therapy; Z83.3 Family history of diabetes mellitus; Z80.3 Family history of malignant neoplasm of breast; Z80.8 Family history of malignant neoplasm of other organs or systems; Z82.49 Family history of ischemic heart disease and other diseases of the circulatory system; Z87.891 Personal history of nicotine dependence
CPT/HCPCS: 36415; 70450; 70544; 70549; 70551; 70552; 71020; 71260; 74177; 80053; 80307; 81003; 82140; 82550; 82565; 83605; 83735; 83880; 84146; 84443; 84484; 85025; 85379; 86618; 93005; 93308; 95819; A9270-GY; A9577; A9579; J0360; J1650; Q9967

== ENCOUNTER 2016-12-08 13:20 | Observation (INO) | payer MEDICARE, OTHER ==
[2016-12-08] MEDS ORDERED: Aspirin Low Dose CHEW TAB* 81 MG PO ONE (14:41)
--- NOTE | 2016-12-08 15:16 | RAD ---
HISTORY: Shortness of breath COMPARISONS: June 12, 2016 VIEWS:1: Single frontal portable view of the chest at 2:50 PM FINDINGS: LINES AND TUBES: None. CARDIOMEDIASTINAL SILHOUETTE: The cardiomediastinal silhouette is normal for portable technique. PLEURA: The costophrenic angles are sharp. No pleural abnormalities are noted. LUNG PARENCHYMA: The lungs are clear. ABDOMEN: The upper abdomen is clear. There is no subphrenic gas. BONES AND SOFT TISSUES: No bone or soft tissue abnormalities are noted. IMPRESSION: NO ACTIVE CARDIOPULMONARY DISEASE.
[2016-12-08 15:24] LABS: Add Diff/Slide Review? Slide Review Added; Comments Flag Yes; Hematocrit 43 % (42-52); Hemoglobin 14.9 g/dl (14.0-18.0); Mean Corpuscular HGB Conc 35 g/dl (31-36); Mean Corpuscular Hemoglobin 32 pg (27-31); Mean Corpuscular Volume 91 fL (80-94); Mean Platelet Volume 8 um3 (7.4-10.4); Red Blood Count 4.74 10^6/ul (4.0-5.4); Red Cell Distribution Width 16 % (10.5-15); White Blood Count 8.4 10^3/ul (3.5-10.8)
[2016-12-08 15:41] LABS: Albumin 3.6 g/dL (3.2-5.2); BUN/Creatinine Ratio 20.9 (8-20); Calcium 9.3 mg/dL (8.6-10.3); EGFR African American 111.2 (>60); EGFR Non-African American 86.5 (>60); Globulin 2.5 g/dL (2-4); Total Bilirubin 0.7 mg/dL (0.2-1.0); Total Protein 6.1 g/dL (6.4-8.9)
[2016-12-08 15:43] LABS: Troponin I 0.12 ng/mL (<0.04)
[2016-12-08] MEDS ORDERED: Iohexol 350* (CONTRAST) 500 ML MDV IV ONE (16:27)
[2016-12-08] MEDS ORDERED: Heparin DRIP 25,000 UNITS(*) 25,000 UNITS/500 ML BAG IVPB ONE (17:14)
[2016-12-08] MEDS ORDERED: Ondansetron INJ* 2 MG/ML VIAL IV PRN (17:19)
[2016-12-08] MEDS ORDERED: oxyCODONE/Acetamin 5/325 MG* TAB PO PRN (17:19)
[2016-12-08] MEDS ORDERED: Acetaminophen TAB* 325 MG PO PRN (17:19)
--- NOTE | 2016-12-08 17:25 | RAD ---
Indication: Shortness of breath, hypoxia. Contrast: Administered 82.2 ml of Contrast -- mg/ml CTA of the chest was performed after IV contrast administration. Coronal and sagittal reconstructed images were obtained. There are large pulmonary embolus noted in both main pulmonary arteries. There is suggestion of a filling defect straddling the left and right pulmonary artery consistent with saddle embolus. Extension into the lobar and segmental arteries bilaterally. The aorta demonstrates no evidence of aneurysmal dilatation or aortic dissection. The trachea and major bronchi appear patent. No evidence of alveolar consolidation is noted. No pleural fluid is identified. The visualized abdominal organs are grossly unremarkable. IMPRESSION: Extensive pulmonary embolus bilaterally in the main pulmonary artery. Small saddle embolus is noted. Filling defects extends into the lobar pulmonary arteries and slightly into the segmental pulmonary arteries. Dr. Virk was notified of the results at 1700 hours.
[2016-12-08] MEDS ORDERED: NS 0.9% 1000 ML* 1,000 ML IV SCH (17:30)
[2016-12-08 17:41] LABS: Hematocrit 43 % (42-52); Mean Corpuscular HGB Conc 35 g/dl (31-36); Mean Corpuscular Hemoglobin 32 pg (27-31); Mean Corpuscular Volume 91 fL (80-94); Mean Platelet Volume 8 um3 (7.4-10.4); Red Blood Count 4.75 10^6/ul (4.0-5.4); Red Cell Distribution Width 16 % (10.5-15); White Blood Count 6.9 10^3/ul (3.5-10.8)
[2016-12-08 17:46] LABS: Comments Flag Yes
[2016-12-08] MEDS ORDERED: Heparin VIAL(*) 5000 UNITS/ML VIAL (FIVE THOUSAND) IV SCH ×3 (18:00→21:00)
[2016-12-08 18:14] LABS: Troponin I 0.11 ng/mL (<0.04)
[2016-12-08] MEDS ORDERED: Heparin DRIP 25,000 UNITS(*) 25,000 UNITS/500 ML BAG IVPB SCH ×2 (18:15→20:15)
[2016-12-08] MEDS: levETIRAcetam TAB* 500 MG PO SCH (21:32)
[2016-12-08] MEDS ORDERED: Warfarin TAB(*) 5 MG PO ONE (23:30)
[2016-12-09 01:20] LABS: Hematocrit 40 % (42-52); Hemoglobin 13.8 g/dl (14.0-18.0); Mean Corpuscular HGB Conc 35 g/dl (31-36); Mean Corpuscular Hemoglobin 32 pg (27-31); Mean Corpuscular Volume 91 fL (80-94); Mean Platelet Volume 8 um3 (7.4-10.4); Red Blood Count 4.39 10^6/ul (4.0-5.4); Red Cell Distribution Width 16 % (10.5-15); White Blood Count 7.3 10^3/ul (3.5-10.8)
[2016-12-09 01:23] LABS: Comments Flag Yes
[2016-12-09 01:24] LABS: Add Diff/Slide Review? Slide Review Added
--- NOTE | 2016-12-09 01:41 | HP ---
HISTORY AND PHYSICAL: DATE OF ADMISSION: 12/08/16 PRIMARY CARE PROVIDER: Dr. Marisela Lovelace. CHIEF COMPLAINT: Shortness of breath and weakness. HISTORY OF PRESENT ILLNESS: Mr. Lovelace is a 76-year-old gentleman status post brain tumor removal approximately 5 months prior to admission (glioblastoma). The patient fell in the setting of shortness of breath and dizziness while doing his daily walk. There was no head injury or loss of consciousness. There was only extreme fatigue. The patient had no focal weakness. He is noted to have an enlarged aorta, but this is not an indication for surgery at this time owing to its dimension. The patient was referred to the hospitalist service for admission following a CTA that demonstrated bilateral pulmonary embolism with a saddle component during his emergency room workup. The patient was started on IV heparin and he is being admitted for stabilization given his impressive clot burden. PAST MEDICAL HISTORY: 1. Neurosurgery 5 months ago (June 2016) for left frontal lobe tumor ( pathology showing glioblastoma). 2. Hypertension. 3. Syncopal episodes prior to diagnosis of brain tumor/metastatic adenocarcinoma. 4. Dilated aortic root with dimensions most recently 4.5 cm. 5. Hyperlipidemia. 6. Hypothyroidism. 7. Chronic eye crusting. OUTPATIENT MEDICATIONS: 1. Minocycline 50 mg by mouth, Monday, Monday. 2. Cholecalciferol 1000 mg by mouth daily. 3. Dexamethasone 2 mg by mouth daily. 4. Levothyroxine 175 mcg by mouth daily. 5. Pantoprazole 20 mg by mouth daily. 6. Amlodipine 5 mg by mouth daily. 7. Keppra 1000 mg by mouth twice daily. ALLERGIES: No known drug allergies. FAMILY HISTORY: Dad with congestive heart failure and diabetes. Mom with history of angina, breast cancer, and bone cancer. SOCIAL HISTORY: The patient lives with his , Ms. Nabil Lovelace, who is his healthcare proxy. The patient quit smoking many years ago (over 30). The patient smoked half pack a day at that time. The patient is a full code status. 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 He occasionally smokes marijuana. PHYSICAL EXAMINATION ON ADMISSION GENERAL: An elderly man, who appears his stated age, in no apparent distress. He is awake, alert, and oriented x3, and answers questions appropriately. VITAL SIGNS: Temp 97.2 degrees Fahrenheit, pulse rate 53, respirations 18, oxygen saturation 100% on room air, blood pressure 126/68. HEENT: Oropharynx is clear. Mucous membranes are moist. He has got a transverse incision on the apex of his scalp, clean, dry and intact. NECK: Supple. No elevated JVD. Midline trachea. Normal thyroid. No carotid bruits. CHEST: Clear breath sounds anteriorly and posteriorly. HEART: Regular rate and rhythm. ABDOMEN: Soft and nontender. EXTREMITIES: Without clubbing, cyanosis, or edema. NEURO: No focal weakness. PSYCH: Slow affect. 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 He clearly recounts his fall and denies syncope during that event. SKIN: Dry and intact. No rashes, lesions, or breakdown. DIAGNOSTIC STUDIES/LAB DATA: Admission data: White blood cell count 8.4, hemoglobin 14.9, platelets 98. INR 0.89. Blood chemistry generally unremarkable except a modestly elevated [id number] ratio at 20.9. Troponin 0.12, repeat 0.11. Total protein and albumin preserved. LFTs within normal limits. Admission imaging data included a chest and thorax CTA, which showed an extensive pulmonary embolism bilaterally in the main pulmonary artery with small saddle embolism noted and filling defects extending into the lobar pulmonary arteries and slightly into the segmental pulmonary arteries. Chest x-ray shows no active pulmonary disease. EKG showed sinus bradycardia at 60 beats per minute with an S1Q3T3 pattern suggestive of right heart strain but with no evidence of clinically hemodynamic instability. IMPRESSION: Mr. Lovelace is a 76-year-old gentleman with a history of brain cancer diagnosed in the past 5 months status post surgery, currently on steroids for antiinflammatory therapy as well as antiepileptics prophylactically , who now presents with a fall and weakness and diagnosis of bilateral pulmonary emboli with saddle component. PLAN BY MEDICAL PROBLEM: 1. Pulmonary embolism - bilateral with substantial clot burden. 2. IV heparin drip started. 3. Transthoracic echo in the morning to assess right heart function and any evidence of right heart strain. 4. We will consider NOAC versus Coumadin - can bridge with subcu Lovenox depending on stability and the patient's preference and insurance considerations. 5. I will continue all of the outpatient medications as prescribed following discharge. 6. The patient is full code. 7. Surrogate decision maker is the patient's , who is also his emergency contact. TIME SPENT: Total time taken to admit Mr. Lovelace was 45 minutes, greater than half that time spent going over the history and physical examination and explaining the hospital plan of care to the patient. [id number]/[facility] #: [id number] BRYAN
[2016-12-09] MEDS ORDERED: Levothyroxine TAB* 175 MCG TAB PO SCH (06:00)
[2016-12-09] MEDS ORDERED: Cholecalciferol TAB* 1000 UNITS PO SCH (09:00)
[2016-12-09] MEDS ORDERED: amLODIPine TAB* 5 MG PO SCH (09:00)
[2016-12-09] MEDS ORDERED: Dexamethasone TAB* 1 MG PO SCH (09:00)
[2016-12-09] MEDS ORDERED: CMCS: Pantoprazole TAB (NF) 40 MG TAB PO SCH (09:00)
[2016-12-09] MEDS: levETIRAcetam TAB* 500 MG PO SCH (09:35)
--- NOTE | 2016-12-09 09:41 | ECHO ---
Patient: NESSA BROOKE [facility] Rec#: [id number] : 1940 Date: 12/09/2016 Age: 76y Height: 182.88 cm / 72.0 in Weight: 99.79 kg / 219.9 lbs Sex: M BSA: 2.22 Room#: 450 Admit Date#: 12/08/2016 Type: Inpatient Referring: Dangelo Pretty MD Reading: Georges Trimble DO Horse [employer] Guide: Tiffanie Walters RDCS CC: ERICA MONTANEZ Transthoracic Echocardiogram Indication: Pulmonary Embolism BP: 108/63 HR: 48 Rhythm: Bradycardia Findings History: Left frontal glioblastoma,HTN,syncope,HLD,hypothyroid, former smoker. Technical Comments: The study quality is good. Completed at 0837. Left Ventricle: The left ventricular chamber size is normal. Mild concentric left ventricular hypertrophy is observed. Global left ventricular wall motion and contractility are within normal limits. There is normal left ventricular systolic function. The estimated ejection fraction is 55-60%. There is no consistent Doppler evidence of clinically significant diastolic dysfunction. Left Atrium: The left atrium is normal in size. Right Ventricle: The right ventricular cavity size is normal. The right ventricular global systolic function is mildly reduced. Right Atrium: The right atrial cavity size is normal. Aortic Valve: The aortic valve is trileaflet. There is no evidence of aortic valve thickening. There is no evidence of aortic regurgitation. There is no evidence of aortic stenosis. Mitral Valve: The mitral valve leaflets appear normal. There is a trace of mitral regurgitation. There is no evidence of mitral stenosis. Tricuspid Valve: The tricuspid valve leaflets are normal. There is trace tricuspid regurgitation. Unable to estimate the right ventricular systolic pressure. Pulmonic Valve: The pulmonic valve appears normal. There is no evidence of pulmonic regurgitation. There is no pulmonic stenosis. Pericardium: The pericardium is not well visualized. Aorta: There is mild dilatation of the aortic root. Pulmonary Artery: The main pulmonary artery appears normal. Venous: The inferior vena cava appears normal in size. There is a greater than 50% respiratory change in the inferior vena cava dimension. Conclusions The left ventricular chamber size is normal. Mild concentric left ventricular hypertrophy is observed. There is normal left ventricular systolic function. The estimated ejection fraction is 55-60%. The right ventricular cavity size is normal. The right ventricular global systolic function is mildly reduced There is trace tricuspid regurgitation. Unable to estimate the right ventricular systolic pressure. There is moderate dilatation of the ascending aorta at 4.2 cm Compared to prior studies from 06/2016, the RV function is now mildly reduced Measurements Name Value Normal Range RVIDd (AP) 2D 2.7 cm (0.9 - 2.6) RVDdMajor (2D) 3.7 cm (2.2 - 4.4) RAd ISD 4CH 4.1 cm (3.4 - 4.9) RA (A4C)W 3.7 cm (2.9 - 4.6) IVSd (2D) 1.3 cm (0.6 - 1) LVPWd (2D) 1.3 cm (0.6 - 1) LVIDd (2D) 4.5 cm (3.6 - 5.4) LVIDs (2D) 3.2 cm - LV FS (2D) 29 % (25 - 45) Aortic Annulus 2.2 cm (1.4 - 2.6) Ao root diameter (2D) 3.9 cm (2.1 - 3.5) Ascending Ao 4.2 cm (2.1 - 3.4) Descending Ao 0.5 cm - LA dimension (AP) 2D 3.7 cm (2.3 - 3.8) LAd ISD 4CH 5.4 cm (2.9 - 5.3) LA ISD 4CH W 3.8 cm (2.5 - 4.5) Name Value Normal Range LA ESV SP 4CH (A/L) 46 ml - LA ESV SP 2CH (A/L) 43 ml - LA ESV BP (A/L) 46 ml - LA ESV BP (A/L) index 20.66 ml/m2 - LA ESV SP 4CH (MOD) 39 ml - LA ESV SP 2CH (MOD) 41 ml - Name Value Normal Range MV E-wave Vmax 0.6 m/sec - MV deceleration time 268 msec - MV A-wave Vmax 0.8 m/sec - MV E:A ratio 0.86 ratio - LV septal e' Vmax 0.06 m/sec - LV lateral e' Vmax 0.08 m/sec - LV E:e' septal ratio 10 ratio - LV E:e' lateral ratio 7.5 ratio - Name Value Normal Range AV Vmax 1.6 m/sec - AV VTI 36.4 cm - AV peak gradient 10.13 mmHg - AV mean gradient 4.78 mmHg - LVOT Vmax 1.4 m/sec - LVOT VTI 31.4 cm - LVOT peak gradient 8.29 mmHg - LVOT mean gradient 3.54 mmHg - Name Value Normal Range IVC diameter 1.8 cm - Name Value Normal Range PV Vmax 0.8 m/sec - PV peak gradient 2.41 mmHg -
[2016-12-09] MEDS ORDERED: Rivaroxaban TAB(*) 15 MG PO ONE ×2 (12:03→12:10)
[2016-12-09 16:55] VITALS: BP 149/86
--- NOTE | 2016-12-09 17:41 | PN ---
Subjective Date of Service: 12/09/16 Interval History: Mr. Lovelace feels well today. He has been on heparin through the night with no bleeding. He feels that his breathing is improving. He walked with physical therapy this morning and felt well. No lightheadedness, dizziness, weakness, nausea, vomiting. Denies chest pain, palpitations, shortness of breath. No new complaints. Family History: Unchanged from Admission Social History: Unchanged from Admission Past Medical History: Unchanged from Admission Objective Active Medications: Acetaminophen (Tylenol Tab*) 650 mg PO Q4H PRN PRN Reason: FEVER/PAIN Amlodipine Besylate (Norvasc Tab*) 5 mg PO DAILY COUNT INCLUDES THE [facility] Last Admin: 12/09/16 09:35 Dose: 5 mg Cholecalciferol (Vitamin D Tab*) 1,000 units PO DAILY COUNT INCLUDES THE [facility] Last Admin: 12/09/16 09:35 Dose: 1,000 units Dexamethasone (Decadron Tab*) 2 mg PO DAILY COUNT INCLUDES THE [facility] Last Admin: 12/09/16 09:36 Dose: 2 mg Enoxaparin Sodium (Lovenox(*)) 125 mg SUBCUT Q24H COUNT INCLUDES THE [facility] Sodium Chloride (Ns 0.9% 1000 Ml*) 1,000 mls @ 75 mls/hr IV PER RATE COUNT INCLUDES THE [facility] Levetiracetam (Keppra Tab*) 1,000 mg PO BID COUNT INCLUDES THE [facility] Last Admin: 12/09/16 09:35 Dose: 1,000 mg Levothyroxine Sodium (Synthroid Tab*) 175 mcg PO DAILY@0600 COUNT INCLUDES THE [facility] Last Admin: 12/09/16 06:02 Dose: 175 mcg Ondansetron HCl (Zofran Inj*) 4 mg IV Q4H PRN PRN Reason: NAUSEA/VOMITING Oxycodone/Acetaminophen (Percocet 5/325 Tab*) 1 tab PO Q4H PRN PRN Reason: Pain Pantoprazole Sodium (Protonix Tab (Nf)) 20 mg PO DAILY COUNT INCLUDES THE [facility] Last Admin: 12/09/16 09:36 Dose: 20 mg Vital Signs 12/08/16 12/08/16 12/08/16 18:00 18:38 23:45 Temperature 97.5 F 98.4 F Pulse Rate 48 45 41 Respiratory 21 16 20 Rate Blood Pressure 126/77 145/77 99/56 (mmHg) O2 Sat by Pulse 93 96 97 Oximetry 09/04/2612/09/16 12/09/16 03:38 07:32 11:13 Temperature 98.7 F 97.9 F 98.1 F Pulse Rate 44 43 50 Respiratory 20 16 22 Rate Blood Pressure 108/63 135/72 137/83 (mmHg) O2 Sat by Pulse 95 94 95 Oximetry 12/09/16 15:29 Temperature Pulse Rate 54 Respiratory 18 Rate Blood Pressure 149/86 (mmHg) O2 Sat by Pulse 95 Oximetry Oxygen Devices in Use Now: None Appearance: alert, well appearing, no distress. able to speak in full sentences without dyspnea. Eyes: No Scleral Icterus, PERRLA Ears/Nose/Mouth/Throat: NL Teeth, Lips, Gums, Clear Oropharnyx, Mucous Membranes Moist Neck: NL Appearance and Movements; NL JVP, Trachea Midline Respiratory: Symmetrical Chest Expansion and Respiratory Effort, Clear to Auscultation Cardiovascular: NL Sounds; No Murmurs; No JVD, RRR, No Edema Abdominal: NL Sounds; No Tenderness; No Distention, No Hepatosplenomegaly Lymphatic: No Cervical Adenopathy Extremities: No Edema, No Clubbing, Cyanosis Skin: No Rash or Ulcers Neurological: Alert and Oriented x 3 Result Diagrams: 12/08/16 17:32 12/09/16 01:10 EKG Data: no evidence of RV strain Assess/Plan/Problems-Billing Assessment: 1. Bilateral PE with small saddle PE. tolerated heparin drip well. Given the nature of GBM, he continues to have active malignancy, so should be maintained on therapeutic lovenox indefinitely. Transition today from heparin to therapeutic lovenox in preparation for discharge. TTE today showed mildly reduced RV function and trace TR. No oxygen requirement. Has been hemodynamically stable throughout admission. 2. Glioblastoma Multiforme. undergoing treatment with [facility] ( Temodar). I discussed his case with the oncology PA in [place]. She agrees with lovenox and agrees to manage the lovenox going forward. 3. Syncope. Likely due to PE. Ambulated today without event. No events on telemetry. 3. Disposition. Stable for discharge today with his . Oncology follow up is scheduled.
--- NOTE | 2016-12-09 20:05 | DS ---
CC: shortness of breath HPI: 76 year old man currently undergoing treatment for Glioblastoma Multiforme (with Temodar) sent to the ED from oncology clinic for shortness of breath. Mr. Lovelace denied any chest pain, but did not worsening shortness of breath, dyspnea on exertion, and lightheadedness for the past few days. PMH: GBM (surgical resection June 2016, now on Temodar). Follows with oncology in [place]. Social: Lives at home with his . PE: Please see today's physical exam. Imaging: CTA showed extensive clot burden of bilateral PEs with a small saddle PE. Hospital Course by Problem: 1. Bilateral PEs, malignancy-associated. He was hemodynamically stable throughout his hospital admission. He was started on heparin, and transitioned to therapeutic lovenox (125mg/day) on the second day of admission. He tolerated AC well with no bleeding. A TTE revealed mildly decreased RV function and trace TR. He was able to ambulate with PT without difficulty. He had no oxygen requirement. He will be continued on therapeutic lovenox indefinitely. I discussed this with the PA at his oncology office ([place], ), who agrees to manage his lovenox going forward. 2. GBM, on Temodar. With some mild dysphasia, reportedly unchanged from baseline. Has follow up with oncology.
[2016-12-09] MEDS ORDERED: Rivaroxaban TAB(*) 15 MG PO SCH (21:00)
[2016-12-09] MEDS ORDERED: Enoxaparin(*) 150 MG/ML 1 ML SYRINGE SUBCUT SCH (22:00)
--- NOTE | 2016-12-10 21:29 | ED ---
Erich Nava Benjamin, scribed for Richard Virk MD on 12/08/16 at 1449 . Shortness of Breath - HPI Summary HPI Summary: 76yo male s/p brain tumor removal 5 months ago. Pt has been experiencing SOB and weakness since then. Yesterday, pt fell after feeling SOB and dizzy while doing his daily walking exercise. Pt denies head injury or passing out. Also reports extreme fatigue. Pt denies back pain, Sz episode, CP, or hx of blood clots. Pt has an enlarged aorta but his heart is being evaluated by his doctor. - History of Current Complaint Chief Complaint: EDShortnessOfBreath Time Seen by Provider: 12/08/16 13:41 Hx Obtained From: Patient Onset/Duration: Sudden Onset - yesterday, Lasting Minutes, Resolved Current Severity: None Dyspnea At: Exertion - while walking Aggrevating Factors: Nothing Alleviating Factors: Nothing Associated Signs & Symptoms: Dizzy - Allergy/Home Medications Allergies/Adverse Reactions: Allergies Allergy/AdvReac Type Severity Reaction Status Date / Time No Known Allergies Allergy Verified 11/30/16 14:30 Home Medications: Home Medications Cholecalciferol TAB* [Vitamin D TAB*] 1,000 unit PO DAILY 12/08/16 [History Confirmed 12/08/16] Dexamethasone TAB* [Decadron TAB*] 2 mg PO DAILY 12/08/16 [History Confirmed ] Levothyroxine TAB* [Synthroid TAB*] 175 mcg PO QAM 12/08/16 [History Confirmed 12/08/16] Minocycline (NF) 50 mg PO MOWE 12/08/16 [History Confirmed 12/08/16] Pantoprazole TAB (NF) [Protonix TAB (NF)] 20 mg PO DAILY 12/08/16 [History Confirmed 12/08/16] levETIRAcetam TAB* [Keppra TAB*] 1,000 mg PO BID 12/08/16 [History Confirmed ] PMH/Surg Hx/FS Hx/Imm Hx Endocrine/Hematology History: Reports: Hx Thyroid Disease - hypothyroidism Denies: Hx Diabetes, Hx Systemic Lupus Erythematosus Cardiovascular History: Reports: Hx Hypercholesterolemia - hyperlipidemia, Hx Hypertension - ON MEDS, Other Cardiovascular Problems/Disorders - enlarged aorta Denies: Hx Congestive Heart Failure, Hx Pacemaker/ICD Respiratory History: Denies: Hx Chronic Obstructive Pulmonary Disease (COPD) GI History: Reports: Other GI Disorders - small hernia on left, patient reduces when needed History: Denies: Hx Dialysis, Hx Renal Disease Musculoskeletal History: Reports: Hx Back Problems Denies: Hx Rheumatoid Arthritis Sensory History: Reports: Hx Contacts or Glasses - reading glasses, Hx Macular Degeneration, Hx Hearing Aid, Hx Hearing Problem Opthamlomology History: Reports: Hx Contacts or Glasses - reading glasses, Hx Macular Degeneration Neurological History: Denies: Hx Dementia, Hx Seizures Psychiatric History: Denies: Hx Panic Disorder - Cancer History Cancer Type, Location and Year: MALIGNANT NEOPLASM BRAIN Hx Chemotherapy: Yes - Surgical History Surgery Procedure, Year, and Place: RIGHT GROIN HERNIA REPAIR. CATARACTS BILATERAL Infectious Disease History: No Infectious Disease History: Reports: Hx Shingles Denies: Traveled Outside the [place] in Last 30 Days - Family History Known Family History: Positive: Cardiac Disease, Hypertension Negative: Diabetes - Social History Occupation: Retired Lives: With Family Alcohol Use: Rare Substance Use Type: Reports: None Hx Tobacco Use: No Smoking Status (MU): Former Smoker Review of Systems Positive: Fatigue Eyes: Negative ENT: Negative Cardiovascular: Negative Negative: Chest Pain Positive: Shortness Of Breath. Negative: Cough Gastrointestinal: Negative Negative: Abdominal Pain Genitourinary: Negative Musculoskeletal: Negative Skin: Negative Neurological: Other - dizziness Psychological: Normal All Other Systems Reviewed And Are Negative: Yes Physical Exam Triage Information Reviewed: Yes Vital Signs On Initial Exam: Initial Vitals Temp Pulse Resp BP Pulse Ox 97.2 F 53 18 126/68 100 12/08/16 13:22 12/08/16 13:22 12/08/16 13:22 12/08/16 13:22 12/08/16 13:22 Vital Signs Reviewed: Yes Appearance: Positive: Well-Appearing, No Pain Distress, Well-Nourished Skin: Positive: Warm, Dry Head/Face: Positive: Normal Head/Face Inspection Eyes: Positive: EOMI, DEL, Conjunctiva Clear ENT: Positive: Hearing grossly normal Neck: Positive: Supple, Nontender, No Lymphadenopathy Respiratory/Lung Sounds: Positive: Clear to Auscultation, Breath Sounds Present. Negative: Rales, Rhonchi, Wheezes Cardiovascular: Positive: RRR, Pulses are Symmetrical in both Upper and Lower Extremities. Negative: Murmur, Leg Edema Left, Leg Edema Right Abdomen Description: Positive: Nontender, Soft Bowel Sounds: Positive: Present Musculoskeletal: Positive: Strength/ROM Intact. Negative: Pain @, Edema Left, Edema Right Neurological: Positive: Sensory/Motor Intact, Alert, Oriented to Person Place, Time Psychiatric: Positive: Affect/Mood Appropriate Diagnostics - Vital Signs Vital Signs Temp Pulse Resp BP Pulse Ox 12/08/16 14:17 98.1 F 51 18 119/70 93 12/08/16 14:00 56 20 119/70 97 12/08/16 13:55 51 21 96 12/08/16 13:52 122/82 12/08/16 13:22 97.2 F 53 18 126/68 100 - Laboratory Lab Results: Lab Results 12/08/16 12/08/16 12/08/16 Range/Units 01:10 15:02 15:02 WBC 7.3 8.4 (3.5-10.8) 10^3/ul RBC 4.39 4.74 (4.0-5.4) 10^6/ul Hgb 13.8 L 14.9 (14.0-18.0) g/dl Hct 40 L 43 (42-52) % MCV 91 91 (80-94) fL MCH 32 H 32 H (27-31) pg MCHC 35 35 (31-36) g/dl RDW 16 H 16 H (10.5-15) % Plt Count 86 L 98 L (150-450) 10^3/ul MPV 8 8 (7.4-10.4) um3 Neut % (Auto) 73.7 83.1 H (38-83) % Lymph % (Auto) 15.0 L 9.0 L (25-47) % Laurens % (Auto) 10.4 H 7.4 (1-9) % Eos % (Auto) 0.3 0.1 (0-6) % Baso % (Auto) 0.6 0.4 (0-2) % Absolute Neuts (auto) 5.4 7.0 (1.5-7.7) 10^3/ul Absolute Lymphs (auto) 1.1 0.8 L (1.0-4.8) 10^3/ul Absolute Monos (auto) 0.8 0.6 (0-0.8) 10^3/ul Absolute Eos (auto) 0 0 (0-0.6) 10^3/ul Absolute Basos (auto) 0 0 (0-0.2) 10^3/ul Absolute Nucleated RBC 0 0.01 10^3/ul Nucleated RBC % 0 0.1 Hem Pathologist Commnt INR (Anticoag Therapy) (0.89-1.11) APTT (26.0-36.3) seconds Sodium 138 (133-145) mmol/L Potassium 4.0 (3.5-5.0) mmol/L Chloride 106 (101-111) mmol/L Carbon Dioxide 23 (22-32) mmol/L Anion Gap 9 (2-11) mmol/L BUN 18 (6-24) mg/dL Creatinine 0.86 (0.67-1.17) mg/dL Est GFR ( Amer) 111.2 (>60) Est GFR (Non-Af Amer) 86.5 (>60) BUN/Creatinine Ratio 20.9 H (8-20) Glucose 110 H (70-100) mg/dL Lactic Acid (0.5-2.0) mmol/L Calcium 9.3 (8.6-10.3) mg/dL Total Bilirubin 0.70 (0.2-1.0) mg/dL AST 27 (13-39) U/L ALT 38 (7-52) U/L Alkaline Phosphatase 44 (34-104) U/L Troponin I 0.12 H* (<0.04) ng/mL Total Protein 6.1 L (6.4-8.9) g/dL Albumin 3.6 (3.2-5.2) g/dL Globulin 2.5 (2-4) g/dL Albumin/Globulin Ratio 1.4 (1-3) 12/08/16 12/08/16 Range/Units 15:02 15:02 WBC (3.5-10.8) 10^3/ul RBC (4.0-5.4) 10^6/ul Hgb (14.0-18.0) g/dl Hct (42-52) % MCV (80-94) fL MCH (27-31) pg MCHC (31-36) g/dl RDW (10.5-15) % Plt Count (150-450) 10^3/ul MPV (7.4-10.4) um3 Neut % (Auto) (38-83) % Lymph % (Auto) (25-47) % Laurens % (Auto) (1-9) % Eos % (Auto) (0-6) % Baso % (Auto) (0-2) % Absolute Neuts (auto) (1.5-7.7) 10^3/ul Absolute Lymphs (auto) (1.0-4.8) 10^3/ul Absolute Monos (auto) (0-0.8) 10^3/ul Absolute Eos (auto) (0-0.6) 10^3/ul Absolute Basos (auto) (0-0.2) 10^3/ul Absolute Nucleated RBC 10^3/ul Nucleated RBC % Hem Pathologist Commnt INR (Anticoag Therapy) 0.89 (0.89-1.11) APTT 26.4 (26.0-36.3) seconds Sodium (133-145) mmol/L Potassium (3.5-5.0) mmol/L Chloride (101-111) mmol/L Carbon Dioxide (22-32) mmol/L Anion Gap (2-11) mmol/L BUN (6-24) mg/dL Creatinine (0.67-1.17) mg/dL Est GFR ( Amer) (>60) Est GFR (Non-Af Amer) (>60) BUN/Creatinine Ratio (8-20) Glucose (70-100) mg/dL Lactic Acid 2.0 (0.5-2.0) mmol/L Calcium (8.6-10.3) mg/dL Total Bilirubin (0.2-1.0) mg/dL AST (13-39) U/L ALT (7-52) U/L Alkaline Phosphatase (34-104) U/L Troponin I (<0.04) ng/mL Total Protein (6.4-8.9) g/dL Albumin (3.2-5.2) g/dL Globulin (2-4) g/dL Albumin/Globulin Ratio (1-3) Result Diagrams: 12/08/16 17:32 12/09/16 01:10 Lab Statement: Any lab studies that have been ordered have been reviewed, and results considered in the medical decision making process. - Radiology CXR Xray Interpretation: No Acute Changes Radiology Interpretation Completed By: Radiologist - ED physician has reviewed this radiology report and agrees. - CT CTA Chest CT Interpretation: Positive (See Comments) - IMPRESSION: Extensive pulmonary embolus bilaterally in the main pulmonary artery. Small saddle embolus is noted. Filling defects extends into the lobar pulmonary arteries and slightly into the segmental pulmonary arteries. CT Interpretation Completed By: Radiologist - EKG 1338. Cardiac Rate: Bradycardia - 48bpm EKG Rhythm: Sinus Bradycardia EKG Interpretation: Inferior lateral T wave inversions. NO STEMI Re-Evaluation - Re-Evaluation First Eval Re-Evaluation Time: 17:22 Comment: no signs of right heart strain Course/Dx - Course Course Of Treatment: Reviewed pts medication and allergy lists. Blood pressure noted. Discussed with Dr. Pretty (hospitalist) at 17:23 for admission. - Diagnoses Provider Diagnoses: Bilateral pulmonary embolism - Critical Care Time Critical Care Time: 30-74 min - 45 minutes - bilateral pulmonary emboli Discharge - Discharge Plan Condition: Fair Disposition: HOME The documentation as recorded by the Erich ramon Benjamin accurately reflects the service I personally performed and the decisions made by , Richard Virk MD.
== END 2016-12-09 18:40 | disposition home or self-care (01) ==
LOC: ED 13:20 → MEDTELE 17:19
PROVIDERS: ADMIT Internal Medicine; ATTEND Internal Medicine
DX: I26.92 Saddle embolus of pulmonary artery without acute cor pulmonale (principal); I26.99 Other pulmonary embolism without acute cor pulmonale; C71.9 Malignant neoplasm of brain, unspecified; I10 Essential (primary) hypertension; R55 Syncope and collapse; I77.819 Aortic ectasia, unspecified site; E78.5 Hyperlipidemia, unspecified; E03.9 Hypothyroidism, unspecified; Z79.899 Other long term (current) drug therapy; R06.02 Shortness of breath
CPT/HCPCS: 36415; 71010; 71275; 80053; 83605; 84484; 84520; 85025; 85060; 85610; 85730; 87040; 93005; 93306; 96365; 96366; 99291; A9270-GY; G0378; G8978-GP-CI; G8979-GP-CI; G8980-GP-CI; J1644; J1650; Q9967

== ENCOUNTER 2017-01-02 16:08 | Inpatient (IN) | payer MEDICARE, OTHER ==
--- NOTE | 2017-01-02 17:48 | RAD ---
INDICATION: Brain tumor, weakness. COMPARISON: Comparison is made with a prior CT of the brain from June 13, 2016 and a prior MRI of the brain from December 23, 2016. TECHNIQUE: Contiguous axial sections of the brain were obtained from the skull base to the vertex without contrast. FINDINGS: There is a focal area of decreased attenuation present in the left frontal lobe with surrounding edema and localized mass effect with compression of the adjacent sulci. No midline shift is seen. There is no gross evidence for hemorrhage. The distribution of disease appears similar to the prior MRI study taken in account differences in technique. The patient is status post left frontal craniotomy. The visualized portion of the paranasal sinuses and mastoid air cells appear clear. IMPRESSION: LEFT FRONTAL LOBE MASS WITH SURROUNDING EDEMA AND LOCALIZED MASS EFFECT SIMILAR TO THE RECENT PRIOR MRI OF THE BRAIN STUDY.
--- NOTE | 2017-01-02 18:07 | RAD ---
INDICATION: Weakness. COMPARISON: Comparison is made with a prior study from December 08, 2016. TECHNIQUE: AP and lateral views of the chest were obtained. FINDINGS: The heart appears mildly enlarged and unchanged. The lungs are underinflated. There is a small focal infiltrate at the right lung base. No pleural effusion is seen. IMPRESSION: EXPIRATORY EXAM, SMALL RIGHT BASILAR INFILTRATE.
[2017-01-02 18:28] LABS: Hematocrit 41 % (42-52); Hemoglobin 14.1 g/dl (14.0-18.0); Mean Corpuscular HGB Conc 35 g/dl (31-36); Mean Corpuscular Hemoglobin 32 pg (27-31); Mean Corpuscular Volume 93 fL (80-94); Mean Platelet Volume 8 um3 (7.4-10.4); Red Blood Count 4.42 10^6/ul (4.0-5.4); Red Cell Distribution Width 15 % (10.5-15); White Blood Count 5.5 10^3/ul (3.5-10.8)
[2017-01-02 18:45] LABS: Albumin 3.5 g/dL (3.2-5.2); BUN/Creatinine Ratio 18.9 (8-20); Calcium 9.4 mg/dL (8.6-10.3); EGFR African American 105.5 (>60); Globulin 2.8 g/dL (2-4); Total Bilirubin 0.7 mg/dL (0.2-1.0); Total Protein 6.3 g/dL (6.4-8.9)
[2017-01-02 18:46] LABS: Troponin I 0.01 ng/mL (<0.04)
[2017-01-02 19:06] LABS: TSH (Thyroid Stimulating Horm) 0.06 mcIU/mL (0.34-5.60)
[2017-01-02 19:14] LABS: Urine Bilirubin Negative (Negative); Urine Glucose Negative (Negative); Urine Nitrite Negative (Negative)
[2017-01-02] MEDS ORDERED: Dexamethasone IV* 4 MG/ML 1 ML (4 MG) IV SLOW PU ONE (19:52)
--- NOTE | 2017-01-02 20:01 | ED ---
Erich Nava Benjamin, scribed for Aurelio Estes MD on 01/02/17 at 1658 . Lower Extremity - HPI Summary HPI Summary: 76yo BIBA for increasing weakness over the last few weeks. Pt has a brain tumor. Pt was on chemo but not in the past 2 months. Unable to obtain full history from the pt as pt is responding slow. Upon examination, pt presents RLE weakness. Pt denies any pain anywhere. - History of Current Complaint Chief Complaint: EDWeakness Stated Complaint: WEAKNESS Hx Obtained From: Patient - limited hpi Onset/Duration: Weeks Severity Initially: Mild Severity Currently: Mild Pain Intensity: 0 Pain Scale Used: 0-10 Numeric Timing: Constant Location: Is Discrete @ - RLE Associated Signs And Symptoms: Positive: Weakness Aggravating Factor(s): Standing Alleviating Factor(s): Rest Able to Bear Weight: No - Allergies/Home Medications Allergies/Adverse Reactions: Allergies Allergy/AdvReac Type Severity Reaction Status Date / Time No Known Allergies Allergy Verified 11/30/16 14:30 PMH/Surg Hx/FS Hx/Imm Hx Endocrine/Hematology History: Reports: Hx Thyroid Disease - hypothyroidism Denies: Hx Diabetes, Hx Systemic Lupus Erythematosus Cardiovascular History: Reports: Hx Hypercholesterolemia - hyperlipidemia, Hx Hypertension - ON MEDS, Other Cardiovascular Problems/Disorders - enlarged aorta Denies: Hx Congestive Heart Failure, Hx Pacemaker/ICD Respiratory History: Denies: Hx Chronic Obstructive Pulmonary Disease (COPD) GI History: Reports: Other GI Disorders - small hernia on left, patient reduces when needed History: Denies: Hx Dialysis, Hx Renal Disease Musculoskeletal History: Reports: Hx Back Problems Denies: Hx Rheumatoid Arthritis Sensory History: Reports: Hx Contacts or Glasses - reading glasses, Hx Macular Degeneration, Hx Hearing Aid, Hx Hearing Problem Denies: Hx Cataracts Opthamlomology History: Reports: Hx Contacts or Glasses - reading glasses, Hx Macular Degeneration Denies: Hx Cataracts Neurological History: Denies: Hx Dementia, Hx Seizures Psychiatric History: Denies: Hx Panic Disorder - Cancer History Cancer Type, Location and Year: MALIGNANT NEOPLASM BRAIN Hx Chemotherapy: Yes - Surgical History Surgery Procedure, Year, and Place: RIGHT GROIN HERNIA REPAIR. CATARACTS BILat. BRAIN TUMOR REMOVAL 07/06/16...DR FABIAN LOOKED AT EXTERNAL IMAGES FROM 2016 FROM [facility] AND CLEARED HIM TO BE DONE ON 3T MAGNET TODAY(12/23/16) Infectious Disease History: Yes Infectious Disease History: Reports: Hx Shingles Denies: Traveled Outside the [place] in Last 30 Days - Family History Known Family History: Positive: Cardiac Disease, Hypertension Negative: Diabetes - Social History Occupation: Retired Lives: Alone Alcohol Use: Rare Alcohol Amount: 1-2 glasses of wine Substance Use Type: Reports: None Hx Tobacco Use: No Smoking Status (MU): Former Smoker Review of Systems Constitutional: Negative Eyes: Negative ENT: Negative Cardiovascular: Negative Respiratory: Negative Gastrointestinal: Negative Genitourinary: Negative Positive: no symptoms reported Musculoskeletal: Negative Skin: Negative Positive: Weakness - RLE Psychological: Normal All Other Systems Reviewed And Are Negative: Yes Physical Exam Triage Information Reviewed: Yes Vital Signs On Initial Exam: Initial Vitals Temp Pulse Resp BP Pulse Ox 98.6 F 61 19 135/89 100 01/02/17 16:14 01/02/17 16:14 01/02/17 16:14 01/02/17 16:14 01/02/17 16:14 Vital Signs Reviewed: Yes Appearance: Positive: Ill-Appearing - chronic Head/Face: Positive: Normal Head/Face Inspection Eyes: Positive: EOMI ENT: Positive: Normal ENT inspection Neck: Positive: Supple, Nontender Respiratory/Lung Sounds: Positive: Clear to Auscultation, Breath Sounds Present Cardiovascular: Positive: RRR. Negative: Murmur Abdomen Description: Positive: Nontender Neurological: Positive: CN Intact II-III. 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 Has known brain tumor. Diagnostics - Vital Signs Vital Signs Temp Pulse Resp BP Pulse Ox 01/02/17 16:14 98.6 F 61 19 135/89 100 - Laboratory Result Diagrams: 01/02/17 18:10 01/02/17 18:10 Lab Statement: Any lab studies that have been ordered have been reviewed, and results considered in the medical decision making process. - Radiology CXR Xray Interpretation: Positive (See Comments) - IMPRESSION: EXPIRATORY EXAM, SMALL RIGHT BASILAR INFILTRATE. Radiology Interpretation Completed By: Radiologist - ED Physician reviewed the radiology report and agrees with the finding. - CT Brain CT WO CT Interpretation: Positive (See Comments) - IMPRESSION: LEFT FRONTAL LOBE MASS WITH SURROUNDING EDEMA AND LOCALIZED MASS EFFECT SIMILAR TO THE RECENT PRIOR MRI OF THE BRAIN STUDY. CT Interpretation Completed By: Radiologist - ED Physician reviewed the radiology report and agrees with the finding. Lower Extremity Course/Dx - Course Course Of Treatment: Reviewed pt's list of medication and allergies. Blood pressure noted. Per the patient's , the patient has not had chemo for two months. He is not officially hospice at this time. He is supposed to start receiving chemo recommended by [facility] through a new Heme/Onc consult. - Diagnoses Provider Diagnoses: Brain tumor, Weakness - Physician Notifications Discussed Care Of Patient With: Selwyn Vidal Time Discussed With Above Provider: 19:53 Discharge - Discharge Plan Condition: Good Disposition: ADMITTED TO [facility] The documentation as recorded by the Erich ramon Benjamin accurately reflects the service I personally performed and the decisions made by , Aurelio Estes MD.
[2017-01-02] MEDS ORDERED: levETIRAcetam TAB* 500 MG PO ONE (20:29)
[2017-01-02] MEDS ORDERED: Ondansetron INJ* 2 MG/ML VIAL IV PRN (20:50)
[2017-01-02] MEDS ORDERED: Enoxaparin(*) 150 MG/ML 1 ML SYRINGE SUBCUT SCH ×2 (21:00)
[2017-01-02] MEDS ORDERED: MINOCYCLINE 50 MG PO SCH (21:00)
[2017-01-02] MEDS: levETIRAcetam TAB* 500 MG PO SCH (21:20)
[2017-01-02] MEDS: Enoxaparin(*) 150 MG/ML 1 ML SYRINGE SUBCUT SCH (21:23)
--- NOTE | 2017-01-03 04:27 | HP ---
Amended report to enter cosigning doctor. HISTORY AND PHYSICAL: DATE OF ADMISSION: 01/02/17 PROVIDER: Dr. Singh* (dictated by Johnna Herrera, FAVIOLA). PRIMARY CARE PROVIDER: Dr. Marisela Lovelace. CHIEF COMPLAINT: Increased right-sided weakness. HISTORY OF PRESENT ILLNESS: Mr. Lovelace is a 76-year-old gentleman status post brain tumor removal approximately 6 months ago prior to admission for glioblastoma. His stated he has been increasingly weak and difficult to take care of because of his decreasing mobility. She had a caregiver over the weekend helping stand and pivot him to the wheelchair and to bed. Today, she was home by herself with him. She assisted him to the wheelchair and then she was trying to help him back to the bed. He slumped to the ground without injury as his was unable to hold him up. She called EMS and he was brought to the emergency room with right-sided weakness. He had no head injury, no loss of consciousness, and complains of no pain related to the incident. Of note, he was here on 12/08/16 for bilateral PE and was sent home on Lovenox but as stated he did not strike his head during this episode. He has now been referred to the hospitalist service for admission to evaluate his weakness as his is unable to take care of him at home. PAST MEDICAL HISTORY: Neurosurgery 6 months ago in June of 2016 for left frontal lobe tumor showing glioblastoma. He has a history of hypertension. Dilated aortic root with dimensions most recently of 4.5 cm. Hyperlipidemia, hypothyroidism. OUTPATIENT MEDICATIONS: 1. Minocycline 50 mg by mouth Monday and Monday. 2. Cholecalciferol 1000 mg by mouth daily. 3. Dexamethasone 2 mg by mouth daily, which I spoke with Dr. Robert, who is an oncologist in [place] and he is recommending dexamethasone 6 mg x1 IV tonight and then 4 mg b.i.d. p.o. 4. He is on levothyroxine 175 mcg daily. 5. Pantoprazole 20 mg by mouth daily. 6. Amlodipine 5 mg by mouth daily. 7. Keppra 750 mg by mouth t.i.d. 8. He is also on Lovenox 125 mg daily. ALLERGIES: No known drug allergies. FAMILY HISTORY: Dad with congestive heart failure and diabetes. Mom with history of angina, breast cancer, and bone cancer. SOCIAL HISTORY: The patient lives with his , Ms. Nola Lovelace, who is his healthcare proxy. The patient quit smoking many years ago. He is a DNR now. 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 REVIEW OF SYSTEMS: He has not had a recent weight loss. He denies fevers, chills, positive for increasing weakness, & fatigue. It should also be said that his is helping answer the questions as he is having trouble negotiating his words. HEENT: Eyes, he does have some mild crusting in the morning, which is not new for him. He does not have blurred vision or yellow sclerae. Ears, Nose, and Throat: No symptoms. He has no hearing loss. No congestion. Skin has no rash or itching. Cardiovascular: No chest pain, chest pressure, or chest discomfort. Respiratory: No shortness of breath, cough, or sputum. GI: No anorexia, nausea, vomiting, or diarrhea. states that he has a very good appetite. Neuro: He does not complain of a headache, dizzy, or syncope but does have right-sided weakness, which is progressively getting worse and he has trouble findings his words. Musculoskeletal: No muscle pain. No back pain, joint pain, or stiffness. Hematological: No anemia. No easy bleeding or bruising. Lymphatics: No enlarged nodes. Hematologic: He did have bilateral PE in November with a heavy burden load. Psych: No history of depression or anxiety. Endocrinology: No reports of sweating, cold or heat intolerance. PHYSICAL EXAMINATION GENERAL: An elderly man, who appears his stated age, in no apparent distress. Appears comfortable in the stretcher. He is awake, alert, and oriented. He does answer questions but it is difficult for him to follow his words. VITAL SIGNS: In the emergency room, most recent vital signs, 98.6 temp, pulse rate 59, respiratory rate 19, O2 sat 100% on room air, blood pressure 135/89. HEENT: Mucous membranes are moist. NECK: Supple. No elevated JVD. CHEST: Clear breath sounds anteriorly and posteriorly. Symmetrical chest expansion. HEART: Regular rate and rhythm. ABDOMEN: Soft and nontender. EXTREMITIES: Without clubbing, cyanosis, or edema. NEURO: He has weakness to the right arm and right leg. He is able to lift his left leg easily off the stretcher. He is unable to lift the right leg more than a few centimeters. 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 PSYCH: He has a slow affect. His is his certified medical asst, but he does appropriately say what he is taking medications for. SKIN: Dry and intact. No rashes, lesions, or breakdown. DIAGNOSTIC STUDIES/LAB DATA: He had CT of the brain while he was in emergency room, impression: Left frontal lobe mass with surrounding edema and localized mass effect similar to the recent prior MRI of the brain study. He has had his chest x-ray, expiratory exam with small right basilar infiltrates. He did have an EKG done, which shows sinus bradycardia. WBC is 5.5, H and H 41 and 93, platelet count is 136. His INR is 0.90. Chemistry: Sodium 139, potassium 4, chloride 108, carbon dioxide 24, BUN and creatinine 17 and 0.9. His glucose is 114. His lactic acid is 1.6. Troponin 0.01. Calcium 9.4, magnesium 2. TSH is 0.06. His UA was negative for infection. IMPRESSION: Mr. Lovelace is a 76-year-old gentleman with a history of brain cancer diagnosed 6 months ago, status post surgery, currently on steroids for antiinflammatory therapy as well as antiepileptic prophylactically, who now presents with a non traumatic witnessed fall and weakness. PLAN BY MEDICAL PROBLEM: 1. Right-sided weakness. We will increase his dexamethasone per Dr. Robert from [facility]. We will monitor and assist the patient if needed to prevent any further falls. 2. History of pulmonary embolism. He will continue the Lovenox at 125 mg every 24 hours. 3. Glioblastoma. He will continue to receive Keppra prophylactically for any risk of seizures. Oncology consult as he was supposed to see Dr. Guevara on 2016 to begin Chemotherapy. 4. Hypertension. He will continue to receive his amlodipine. 5. Hypothyroidism. He is prescribed Synthroid 175 mcg. His TSH level is 0.06 , so we will check a free T4 and adjust accordingly to that lab value. 6. GERD. We will continue to give him Protonix 20 mg daily. 7. DVT prophylaxis. He is already on Lovenox for the history of PE and we will continue that. 8. Code status. He is a DNR. His surrogate is his , Ms. Lovelace, her phone number [phone]. Consulted for this admission, Dr. Robert, from [place] and he is aware of the admission. TIME SPENT: Total time taken to admit Mr. Lovelace was 60 minutes, greater than half that time was spent going over the history and physical exam and explaining the hospital plan of care to the patient and to his . Plan of care discussed and approved by the attending, Dr. Singh. JOHNNA HERRERA, CRABBING MACHINE OPERATOR [id number]/[facility] #: [id number] BRYAN
[2017-01-03] MEDS ORDERED: Levothyroxine TAB* 175 MCG TAB PO SCH (06:00)
[2017-01-03] MEDS ORDERED: Pantoprazole TAB (NF) 20 MG TAB PO SCH (09:00)
[2017-01-03] MEDS ORDERED: Dexamethasone TAB* 4 MG PO SCH (09:00)
[2017-01-03] MEDS: Cholecalciferol TAB* 1000 UNITS PO SCH (09:57)
[2017-01-03] MEDS: levETIRAcetam TAB* 500 MG PO SCH ×3 (09:58→21:17)
[2017-01-03] MEDS: amLODIPine TAB* 5 MG PO SCH (09:58)
[2017-01-03] MEDS: Famotidine TAB* 20 MG PO SCH (19:23)
[2017-01-03] MEDS ORDERED: Dexamethasone IV* 4 MG/ML 1 ML (4 MG) ONE (21:03)
[2017-01-03] MEDS: Dexamethasone IV* 8 MG in NS 0.9% 50 ML* 50 ML IVPB SCH (21:10)
[2017-01-03] MEDS: Enoxaparin(*) 150 MG/ML 1 ML SYRINGE SUBCUT SCH (21:14)
[2017-01-04] MEDS ORDERED: Levothyroxine TAB* 150 MCG TAB PO SCH (06:00)
[2017-01-04] MEDS ORDERED: Dexamethasone IV* 4 MG/ML 1 ML (4 MG) ONE (08:20)
[2017-01-04] MEDS: Famotidine TAB* 20 MG PO SCH (08:42)
[2017-01-04] MEDS: levETIRAcetam TAB* 500 MG PO SCH ×3 (08:42→21:13)
[2017-01-04] MEDS: Dexamethasone IV* 8 MG in NS 0.9% 50 ML* 50 ML IVPB SCH ×2 (08:42→21:13)
[2017-01-04] MEDS: Cholecalciferol TAB* 1000 UNITS PO SCH (08:42)
[2017-01-04] MEDS: amLODIPine TAB* 5 MG PO SCH (08:42)
[2017-01-04] MEDS ORDERED: MINOCYCLINE 50 MG PO SCH (09:00)
[2017-01-04 09:29] LABS: BUN/Creatinine Ratio 30.4 (8-20); EGFR African American 122.6 (>60); EGFR Non-African American 95.4 (>60); Potassium 3.8 mmol/L (3.5-5.0)
[2017-01-04] MEDS ORDERED: Haloperidol INJ IV/IM* 5 MG/ML AMP ONE (21:09)
[2017-01-04] MEDS: Enoxaparin(*) 150 MG/ML 1 ML SYRINGE SUBCUT SCH (21:13)
--- NOTE | 2017-01-04 23:20 | CONS ---
MEDICAL ONCOLOGY CONSULTATION NOTE: DATE OF CONSULTATION: 01/03/17 REASON FOR CONSULTATION: Progressive disease and progressive symptoms from glioblastoma multiforme. HISTORY OF PRESENT ILLNESS: Mr. Lovelace is a 76-year-old male who previously had been followed for his glioblastoma by Dr. Anand Díaz of Neurology at [facility] in [place], [place]. He originally had presented with several episodes of abnormal speech. One of these episodes are associated with right-sided seizure-like activity in May to June of 2016. MRI scan of the brain revealed a left parasagittal frontal lobe rim-enhancing lesion. He was started on Keppra 500 mg b.i.d. along with dexamethasone. He developed increasing problems with dexterity and strength on the right along with speech difficulties over this period of time. On 07/06/16, the patient underwent a gross total resection of the left parasagittal frontal lobe. Pathology revealed a glioblastoma multiforme, IDH wild type. MGMT . Following his surgery, he had improved speech and dexterity of the right hand. He did continue to have some seizures, although usually in a setting of missed doses of Keppra. The patient received a course of radiation therapy along with concurrent Temodar , which completed 6 weeks on 09/19/16. He received his first and only course of adjuvant Temodar in October of 2016. There were plans to do cycle 2 on . The patient developed a pulmonary embolism and DVT in December 2016 and required Lovenox subcutaneously daily at a dose of 125 mg, he has continued on this dose. The patient has had several episodes where he has required increase in his dose of Decadron. He has been down to as low as 1 mg a day from what he reports initially was a total of 12 mg. About 6 weeks ago with increased weakness, his Decadron dose was increased to 4 mg daily and then was slowly tapered down. He has also had seizures on several occasions and his dose of Keppra has been increased slowly up to 1000 mg b.i.d. and more recently up to 750 mg t.i.d. A repeat MRI scan of the brain was performed on 12/24/16, revealed intermittent progression of enhancing lesion on the frontal lobe predominantly along the inferior extensive lesion compared to 10/25/16. There was also increase in vasogenic edema. This was one of the points when he had an increase in his Decadron dosing. The patient was scheduled to be seen by myself in the office on 01/03/17 to follow up on discussion that he had with Dr. Díaz about having to stop the Temodar and the need to switch to Avastin. However, he developed increasing weakness especially of the right side and fell the day prior to admission and required 2 people to hold enough to try to maintain any mobility. He was brought to the emergency room. He had no loss of consciousness, no significant head injury, no significant change in vision or headaches. He was admitted by the hospitalist service with a consultation to our office. Since in the hospital, he received a dose of 8 mg of Decadron IV and has been placed on 4 b.i.d. of Decadron with may be minimal improvement in his overall strength. PAST MEDICAL HISTORY: Hypertension, hyperlipidemia, hypothyroidism, dilated aortic root with a dimension of 4.5 cm on CTA in December 2015, left inguinal hernia, previous herniorrhaphy, macular degeneration, Raynaud phenomenon. MEDICATIONS: Prior to admission: 1. Minocycline 50 mg twice per week. 2. Cholecalciferol 1000 mg daily. 3. Decadron 4 mg daily and now increased as noted above. 4. Levothyroxine 175 mcg daily. 5. Pantoprazole 20 mg daily. 6. Amlodipine 5 mg daily. 7. Keppra 750 mg t.i.d. 8. Lovenox 125 mg subcutaneously daily. ALLERGIES: Myalgias on ZOCOR and PRAVACHOL. FAMILY HISTORY: Mother with breast cancer. Father with congestive heart failure and diabetes. Brother with myelodysplasia. Maternal grandmother with breast cancer. SOCIAL HISTORY: The patient lives with his , who is his healthcare proxy. He quit smoking 35 years ago. Total 14-zqln-zill smoking history. Alcohol 1 glass per day. He is retired 3 years ago, having previously worked in [employer]. REVIEW OF SYSTEMS: Weight has been stable. Appetite has been decreased recently. Denies any recent signs of infection, significant fevers, sweats, chills, cough or sore throat. Does have some crusting in his eyes and does take minocycline for visual issues. No significant change in his bowel or bladder habits. Neurologic exam: He does have some problems with word finding and speech, significant weakness in the extremities as noted above. This was on the right hand and right arm and leg. Denies any significant arthritic or bony complaints. No significant bruising or bleeding. This was despite having pulmonary embolism and being on Lovenox. PHYSICAL EXAMINATION: A 76-year-old male, who appears his stated age, in no acute distress. Vital Signs: Blood pressure 140/70, pulse 60, afebrile. HEENT : No scleral icterus. PERRL. EOMI. No erythema or exudates. No palpable cervical, supraclavicular, or axillary adenopathy. Lungs: Clear. Heart: Regular rate and rhythm, without murmurs, rubs or gallops. Abdomen: Soft, nontender without masses or organomegaly. Extremities: No clubbing, cyanosis or edema. Back: No CVA or spinal tenderness. Neurologic Exam: The patient has significant weakness in his right arm and leg. There is significant drift to the right arm and 4/5 strength of the right arm. Right leg, able to lift his leg just slightly off the bed, although when his knee is supported, he is able to raise his heel up significantly. LABORATORY DATA: White count 5500, H and H 41/9.3, platelet count 136,000. Chemistries, sodium 139, potassium 4.0, chloride 108, bicarbonate 24, BUN 17, creatinine 0.9, glucose 114, TSH is 0.06. IMPRESSION: 1. A 76-year-old male with glioblastoma multiforme diagnosed just 7 months ago. He has progressed despite gross total resection, radiation, and Temodar. Plan was for him to start on Avastin; however, he has now developed significant increased weakness just over the last several days. He is known to have increased edema on his MRI. Steroids have been increased. Physical Therapy consult placed. If he does improve to the point he will be able to function, he will be able to return to home. Using Avastin would certainly be a reasonable option. This would be given dosing every 2 weeks. If he were to not be able to return home due to severe weakness and inability to be cared for at home, then Avastin would not likely be a good option for him. This was discussed with the patient and with his . Physical Therapy consult has already been placed. Decadron has been increased already, will be increased further up to 8 mg b.i.d. and we will see how he does functionally over the next several days. 2. History of pulmonary embolism. The patient will be continued on Lovenox at 120 to 125 mg daily. 3. Hypertension. He will remain on amlodipine. 4. Hypothyroidism. He is on large doses of Synthroid and given his TSH level, the dose will need to be decreased. 5. Gastroesophageal reflux disease, on Protonix. 6. Code status, the patient had previously discussed MOLST with Dr. Díaz in [place] and he has likely decided on DNR status. [id number]/[facility] #: [id number] MTDD
[2017-01-05] MEDS: Levothyroxine TAB* 75 MCG TAB PO SCH (05:46)
[2017-01-05] MEDS: Famotidine TAB* 20 MG PO SCH (08:42)
[2017-01-05] MEDS: Dexamethasone IV* 8 MG in NS 0.9% 50 ML* 50 ML IVPB SCH ×2 (08:42→19:57)
[2017-01-05] MEDS: Cholecalciferol TAB* 1000 UNITS PO SCH (08:42)
[2017-01-05] MEDS: levETIRAcetam TAB* 500 MG PO SCH ×3 (08:42→20:43)
[2017-01-05] MEDS: amLODIPine TAB* 5 MG PO SCH (08:42)
[2017-01-05] MEDS: Enoxaparin(*) 150 MG/ML 1 ML SYRINGE SUBCUT SCH (20:45)
[2017-01-06] MEDS: Levothyroxine TAB* 75 MCG TAB PO SCH (06:00)
[2017-01-06 07:23] LABS: BUN/Creatinine Ratio 38.4 (8-20); Calcium 8.8 mg/dL (8.6-10.3); EGFR African American 134.3 (>60); EGFR Non-African American 104.5 (>60); Potassium 3.7 mmol/L (3.5-5.0)
[2017-01-06] MEDS: Dexamethasone IV* 8 MG in NS 0.9% 50 ML* 50 ML IVPB SCH (09:43)
[2017-01-06] MEDS ORDERED: Acetaminophen TAB* 325 MG PO PRN (09:46)
[2017-01-06] MEDS ORDERED: Dexamethasone TAB* 4 MG PO SCH (10:00)
[2017-01-06] MEDS: Cholecalciferol TAB* 1000 UNITS PO SCH (10:28)
[2017-01-06] MEDS: amLODIPine TAB* 5 MG PO SCH (10:28)
[2017-01-06] MEDS: Famotidine TAB* 20 MG PO SCH (10:28)
[2017-01-06] MEDS: levETIRAcetam TAB* 500 MG PO SCH ×2 (10:29→14:25)
--- NOTE | 2017-01-06 13:57 | DS ---
- Discharge Summary Admission Date: 01/02/17 Discharge Date: 01/06/17 Discharge Diagnosis: 1. GBM: progressive and currently on high dose steroids, chemo on hold until returns home 2. Right sided weakness: r/t progressive GBM with swelling, improving with steroids 3. Hyopthyroidism: synthroid dose adjusted Discharge Medications: 1. Dexamethasone 8 mg PO BID 2. Famotidine 20 mg PO daily 3. Acetaminophen 650 mg PO q6hrs PRN pain 4. Synthroid 75 mcg PO qAM 5. Minocycline 50 mg PO qMonday and qWednesday 6. Lovenox 125 mg sq daily 7. Amlodipine 5 mg PO daily 8. Vit D 1000 u PO daily Hospital Course: Please admission note for full H&P, however briefly Mr. Lovelace was diagnosed earlier this year with GBM now s/p resection as well as Temodar and RT. His course was complicated by PE and he has been on full dose anticoagulation since. He presented to the ER on 01/02/17 via EMS after having slumped to the ground and not been able to get back up. In the ER he had significant right sided weakness and his neuro oncologist from [place] was consulted. The patient was admitted for high dose steroids. On 01/03 Dr. Guevara saw the pt. in consultation as was previously planned for outpatient. Physical therapy was consulted and plan was made to cont. to evaluate pt.'s progress with steroids. Should he continue to improve then d/c home with plan to start Avastin (as recommended by Ramin and Dr. Guevara) as outpatient, however if no improvement consideration for hospice. Over the next 3 days Mr. Lovelace made considerable improvement and has been ambulating with the help of a walker and some verbal cues. His very much wants to take him home, however he is unable to go up the necessary 3 stairs at this time. Mr. Lovelace is stable for d/ c, however with cont.'d weakness decision was made for transition to subacute rehab and then home once he is a little stronger. In the interum Mr. Lovelace's plans to travel outside the country to visit her mother who is actively dying. Mr. Lovelace will f/u with Dr. Guevara as an outpatient on 01/17. Plan of care was reviewed with pt. and his . >40 min spent with > 50% face to face counseling.
[2017-01-06 16:26] VITALS: BP 123/76
== END 2017-01-06 16:15 | DRG 54 ==
LOC: ED 16:08 → MED 20:02
PROVIDERS: ADMIT Hospitalist; ATTEND Internal Medicine Hematology & Oncology
DX: C71.1 Malignant neoplasm of frontal lobe (principal); G93.6 Cerebral edema; G81.91 Hemiplegia, unspecified affecting right dominant side; R00.1 Bradycardia, unspecified; I10 Essential (primary) hypertension; E03.9 Hypothyroidism, unspecified; I77.819 Aortic ectasia, unspecified site; K21.9 Gastro-esophageal reflux disease without esophagitis; E78.5 Hyperlipidemia, unspecified; H35.30 Unspecified macular degeneration; H91.90 Unspecified hearing loss, unspecified ear; Z66 Do not resuscitate; Z98.42 Cataract extraction status, left eye; Z98.41 Cataract extraction status, right eye; Z86.19 Personal history of other infectious and parasitic diseases; Z87.891 Personal history of nicotine dependence; Z82.49 Family history of ischemic heart disease and other diseases of the circulatory system; Z97.4 Presence of external hearing-aid; Z72.89 Other problems related to lifestyle; Z83.3 Family history of diabetes mellitus; Z80.3 Family history of malignant neoplasm of breast; Z80.8 Family history of malignant neoplasm of other organs or systems; Z86.711 Personal history of pulmonary embolism; Z86.718 Personal history of other venous thrombosis and embolism
CPT/HCPCS: 36415; 70450; 71020; 80048; 80053; 81003; 83605; 83735; 84439; 84443; 84484; 85025; 85610; 93005; 99232; 99239; A9270-GY; J1100; J1630; J1650; J8540

== ENCOUNTER 2017-01-30 11:41 | Observation (INO) | payer MEDICARE, OTHER ==
[2017-01-30 12:45] LABS: Hematocrit 46 % (42-52); Hemoglobin 15.9 g/dl (14.0-18.0); Mean Corpuscular HGB Conc 35 g/dl (31-36); Mean Corpuscular Hemoglobin 32 pg (27-31); Mean Corpuscular Volume 93 fL (80-94); Mean Platelet Volume 8 um3 (7.4-10.4); Red Blood Count 4.91 10^6/ul (4.0-5.4); Red Cell Distribution Width 15 % (10.5-15); White Blood Count 9.8 10^3/ul (3.5-10.8)
[2017-01-30 12:47] LABS: Add Diff/Slide Review? Slide Review Added; Comments Flag Yes
[2017-01-30 13:02] LABS: Albumin 3.1 g/dL (3.2-5.2); BUN/Creatinine Ratio 35.5 (8-20); Calcium 8.8 mg/dL (8.6-10.3); EGFR African American 128.2 (>60); EGFR Non-African American 99.7 (>60); Globulin 2.3 g/dL (2-4); Magnesium 2.1 mg/dL (1.9-2.7); Total Bilirubin 0.6 mg/dL (0.2-1.0); Total Protein 5.4 g/dL (6.4-8.9)
[2017-01-30] MEDS ORDERED: Gadoteridol* (CONTRAST) 279.3 MG/ML 10 ML IV ONE (15:43)
[2017-01-30 17:36] LABS: Urine Bilirubin Negative (Negative); Urine Glucose Negative (Negative); Urine Nitrite Negative (Negative)
--- NOTE | 2017-01-30 17:59 | RAD ---
HISTORY: Seizure, history of brain neoplasm COMPARISONS: December 23, 2016 TECHNIQUE: The following sequences were obtained of the head: Sagittal T1-weighted images, axial T2-weighted images, axial FLAIR images, axial susceptibility weighted images, axial T1-weighted images, coronal T1, T2 and FLAIR images through the mesial temporal lobes. Additionally, axial diffusion-weighted images were obtained with calculated apparent diffusion coefficients. Additionally, sagittal and axial T1 weighted images with thin section coronal T1-weighted images through the mesial temporal lobes were obtained after contrast enhancement with a gadolinium-based intravenous contrast agent. FINDINGS: HEMORRHAGE/INFARCT: There is no hemorrhage or acute infarct. MASSES/SHIFT: There is no shift. Again noted is an enhancing lesion of the left frontal lobe for the described below. EXTRA-AXIAL SPACES/MENINGES: There are no extra-axial fluid collections. SULCI AND VENTRICLES: The sulci and ventricles are normal in size and position for the patient's stated age. CEREBRUM: Again noted is a surgical resection cavity with marginal enhancement of the left frontal lobe extending to the ventricular margin of the left lateral ventricle. This is similar in size to the previous examination, of the degree of marginal enhancement has decreased compared to the previous examination. There has been a mild decrease in the associated vasogenic edema. Again noted is diffusely elevated T2/FLAIR signal in the periventricular and subcortical white matter, increased from the previous examination. BRAINSTEM: There are no focal parenchymal abnormalities. CEREBELLUM: There are no focal parenchymal abnormalities. The cerebellar tonsils are normal in size and position. SELLA: The sella is normal. PINEAL: The pineal region is clear. CP ANGLE/TEMPORAL BONES: The labyrinthine structures are grossly normal. VESSELS: Normal flow-voids are noted within the visualized vertebral vasculature. DIFFUSION ABNORMALITIES: There are no diffusion abnormalities. PARANASAL SINUSES/MASTOIDS: The paranasal sinuses are clear. ORBITS: The orbits are unremarkable. BONES AND SOFT TISSUE: There is post surgical change to the left frontal skull. OTHER: None IMPRESSION: 1. AGAIN NOTED IS A SURGICAL RESECTION CAVITY WITH MARGINAL ENHANCEMENT OF THE LEFT FRONTAL LOBE EXTENDING TO THE MARGIN OF THE LEFT LATERAL VENTRICLE. 2. WHEN COMPARED TO THE 2014 EXAMINATION, THERE HAS BEEN AN INTERVAL DECREASE IN THE DEGREE OF MARGINAL NODULAR ENHANCEMENT AND ASSOCIATED VASOGENIC EDEMA. 3. THERE HAS BEEN A RELATIVE INCREASE IN THE DEGREE OF DIFFUSE WHITE MATTER CHANGE, WHICH PRESUMABLY REFLECTS TREATMENT EFFECT FROM RADIATION THERAPY..
[2017-01-30] MEDS ORDERED: Ondansetron INJ* 2 MG/ML VIAL IV PRN (18:12)
[2017-01-30] MEDS ORDERED: oxyCODONE/Acetamin 5/325 MG* TAB PO PRN (18:12)
[2017-01-30] MEDS ORDERED: Al Hydrox/Mg Hydrox/Simet LIQ* 30 ML UDC PO PRN (18:12)
[2017-01-30] MEDS ORDERED: Acetaminophen TAB* 325 MG PO PRN (18:12)
--- NOTE | 2017-01-30 18:28 | ED ---
Shay Nava Alfonso, scribed for James Vidal MD on 01/30/17 at 1220 . Complex/Multi-Sys Presentation - HPI Summary HPI Summary: This patient is a 76 year old M BIBA to [facility] accompanied by female with a chief complaint of two seizures at approximately 0330 and 1000 today. Female state his body was shaking and he was staring off. Patient states it is in the right half of my body. The patient rates the pain 0/10 in severity. Symptoms aggravated by nothing. Symptoms alleviated by spontaneous resolution. Patient reports RUE weakness, RLE weakness, and back spasms. Patient denies chills, congestion, and cough. PMHx includes malignant glioblastoma. - History Of Current Complaint Chief Complaint: EDSeizure Time Seen by Provider: 01/30/17 12:09 Hx Obtained From: Patient Onset/Duration: Sudden Onset, Resolved, Other - 2 episodes Timing: Intermittent, Lasting: Aggravating Factor(s): nothing Alleviating Factor(s): spontaneous resolution Associated Signs And Symptoms: Positive: Other - RUE weakness, RLE weakness, and back spasms. Patient denies chills, congestion, and cough - Allergies/Home Medications Allergies/Adverse Reactions: Allergies Allergy/AdvReac Type Severity Reaction Status Date / Time No Known Allergies Allergy Verified 01/27/17 12:37 PMH/Surg Hx/FS Hx/Imm Hx Endocrine/Hematology History: Reports: Hx Thyroid Disease - hypothyroidism Denies: Hx Diabetes, Hx Systemic Lupus Erythematosus Cardiovascular History: Reports: Hx Hypercholesterolemia - hyperlipidemia, Hx Hypertension - ON MEDS, Other Cardiovascular Problems/Disorders - enlarged aorta Denies: Hx Congestive Heart Failure, Hx Pacemaker/ICD Respiratory History: Denies: Hx Chronic Obstructive Pulmonary Disease (COPD) GI History: Reports: Other GI Disorders - small hernia on left, patient reduces when needed History: Denies: Hx Dialysis, Hx Renal Disease Musculoskeletal History: Reports: Hx Back Problems Denies: Hx Rheumatoid Arthritis Sensory History: Reports: Hx Contacts or Glasses, Hx Macular Degeneration, Hx Hearing Problem Denies: Hx Cataracts, Hx Hearing Aid Opthamlomology History: Reports: Hx Contacts or Glasses, Hx Macular Degeneration Denies: Hx Cataracts Neurological History: Denies: Hx Dementia, Hx Seizures Psychiatric History: Denies: Hx Panic Disorder - Cancer History Cancer Type, Location and Year: MALIGNANT NEOPLASM BRAIN malignant glioblastoma. Hx Chemotherapy: Yes - Surgical History Surgery Procedure, Year, and Place: RIGHT GROIN HERNIA REPAIR. CATARACTS BILat. BRAIN TUMOR REMOVAL 07/06/16...DR FABIAN LOOKED AT EXTERNAL IMAGES FROM 2016 FROM [place] AND CLEARED HIM TO BE DONE ON 3T MAGNET TODAY(12/23/16) Infectious Disease History: No Infectious Disease History: Reports: Hx Shingles Denies: Traveled Outside the [place] in Last 30 Days - Family History Known Family History: Positive: Cardiac Disease - CHF, Hypertension, Diabetes, Other - Cancer - Social History Alcohol Use: None Alcohol Amount: 1-2 glasses of wine Substance Use Type: Reports: None Hx Tobacco Use: No Smoking Status (MU): Former Smoker Review of Systems Negative: Chills Positive: Other - Negative congestion Negative: Cough Positive: Other - RUE weakness, RLE weakness, and back spasms Neurological: Other - Seizures All Other Systems Reviewed And Are Negative: Yes Physical Exam Triage Information Reviewed: Yes Vital Signs On Initial Exam: Initial Vitals Temp Pulse Resp BP Pulse Ox 98.7 F 92 20 158/100 97 01/30/17 12:01 01/30/17 12:01 01/30/17 12:01 01/30/17 12:01 01/30/17 12:01 Vital Signs Reviewed: Yes Appearance: Positive: Well-Appearing, No Pain Distress Skin: Positive: Warm, Skin Color Reflects Adequate Perfusion, Dry Head/Face: Positive: Normal Head/Face Inspection Eyes: Positive: Normal ENT: Positive: Normal ENT inspection Neck: Positive: Supple, Nontender Respiratory/Lung Sounds: Positive: Clear to Auscultation, Breath Sounds Present Cardiovascular: Positive: RRR Abdomen Description: Positive: Nontender, Soft Bowel Sounds: Positive: Present Musculoskeletal: Positive: Other - Right sided weakness Neurological: Positive: Normal, Sensory/Motor Intact, Alert, Oriented to Person Place, Time, CN Intact II-III Psychiatric: Positive: Normal, Affect/Mood Appropriate - Lorna Coma Scale Coma Scale Total: 15 Diagnostics - Vital Signs Vital Signs Temp Pulse Resp BP Pulse Ox 01/30/17 12:01 98.7 F 92 20 158/100 97 - Laboratory Lab Results: Lab Results 01/30/17 01/30/17 01/30/17 Range/Units 12:35 12:35 12:35 WBC 9.8 (3.5-10.8) 10^3/ul RBC 4.91 (4.0-5.4) 10^6/ul Hgb 15.9 (14.0-18.0) g/dl Hct 46 (42-52) % MCV 93 (80-94) fL MCH 32 H (27-31) pg MCHC 35 (31-36) g/dl RDW 15 (10.5-15) % Plt Count 78 L D (150-450) 10^3/ul MPV 8 (7.4-10.4) um3 Neut % (Auto) 91.4 H (38-83) % Lymph % (Auto) 4.0 L (25-47) % [place] % (Auto) 4.5 (1-9) % Eos % (Auto) 0 (0-6) % Baso % (Auto) 0.1 (0-2) % Absolute Neuts (auto) 9.0 H (1.5-7.7) 10^3/ul Absolute Lymphs (auto) 0.4 L (1.0-4.8) 10^3/ul Absolute Monos (auto) 0.4 (0-0.8) 10^3/ul Absolute Eos (auto) 0 (0-0.6) 10^3/ul Absolute Basos (auto) 0 (0-0.2) 10^3/ul Absolute Nucleated RBC 0 10^3/ul Nucleated RBC % 0 INR (Anticoag Therapy) 0.85 L (0.89-1.11) Sodium 132 L (133-145) mmol/L Potassium 4.0 (3.5-5.0) mmol/L Chloride 102 (101-111) mmol/L Carbon Dioxide 22 (22-32) mmol/L Anion Gap 8 (2-11) mmol/L BUN 27 H (6-24) mg/dL Creatinine 0.76 (0.67-1.17) mg/dL Est GFR ( Amer) 128.2 (>60) Est GFR (Non-Af Amer) 99.7 (>60) BUN/Creatinine Ratio 35.5 H (8-20) Glucose 118 H (70-100) mg/dL Lactic Acid (0.5-2.0) mmol/L Calcium 8.8 (8.6-10.3) mg/dL Magnesium 2.1 (1.9-2.7) mg/dL Total Bilirubin 0.60 (0.2-1.0) mg/dL AST 30 (13-39) U/L ALT 84 H (7-52) U/L Alkaline Phosphatase 31 L (34-104) U/L Total Protein 5.4 L (6.4-8.9) g/dL Albumin 3.1 L (3.2-5.2) g/dL Globulin 2.3 (2-4) g/dL Albumin/Globulin Ratio 1.3 (1-3) Urine Color Urine Appearance Urine pH (5-9) Ur Specific [place] (1.010-1.030) Urine Protein (Negative) Urine Ketones (Negative) Urine Blood (Negative) Urine Nitrate (Negative) Urine Bilirubin (Negative) Urine Urobilinogen (Negative) Ur Leukocyte Esterase (Negative) Urine Glucose (Negative) 01/30/17 01/30/17 Range/Units 12:35 17:10 WBC (3.5-10.8) 10^3/ul RBC (4.0-5.4) 10^6/ul Hgb (14.0-18.0) g/dl Hct (42-52) % MCV (80-94) fL MCH (27-31) pg MCHC (31-36) g/dl RDW (10.5-15) % Plt Count (150-450) 10^3/ul MPV (7.4-10.4) um3 Neut % (Auto) (38-83) % Lymph % (Auto) (25-47) % [place] % (Auto) (1-9) % Eos % (Auto) (0-6) % Baso % (Auto) (0-2) % Absolute Neuts (auto) (1.5-7.7) 10^3/ul Absolute Lymphs (auto) (1.0-4.8) 10^3/ul Absolute Monos (auto) (0-0.8) 10^3/ul Absolute Eos (auto) (0-0.6) 10^3/ul Absolute Basos (auto) (0-0.2) 10^3/ul Absolute Nucleated RBC 10^3/ul Nucleated RBC % INR (Anticoag Therapy) (0.89-1.11) Sodium (133-145) mmol/L Potassium (3.5-5.0) mmol/L Chloride (101-111) mmol/L Carbon Dioxide (22-32) mmol/L Anion Gap (2-11) mmol/L BUN (6-24) mg/dL Creatinine (0.67-1.17) mg/dL Est GFR ( Amer) (>60) Est GFR (Non-Af Amer) (>60) BUN/Creatinine Ratio (8-20) Glucose (70-100) mg/dL Lactic Acid 2.3 H* (0.5-2.0) mmol/L Calcium (8.6-10.3) mg/dL Magnesium (1.9-2.7) mg/dL Total Bilirubin (0.2-1.0) mg/dL AST (13-39) U/L ALT (7-52) U/L Alkaline Phosphatase (34-104) U/L Total Protein (6.4-8.9) g/dL Albumin (3.2-5.2) g/dL Globulin (2-4) g/dL Albumin/Globulin Ratio (1-3) Urine Color Straw Urine Appearance Clear Urine pH 7.0 (5-9) Ur Specific [place] 1.008 L (1.010-1.030) Urine Protein Negative (Negative) Urine Ketones Negative (Negative) Urine Blood Negative (Negative) Urine Nitrate Negative (Negative) Urine Bilirubin Negative (Negative) Urine Urobilinogen Negative (Negative) Ur Leukocyte Esterase Negative (Negative) Urine Glucose Negative (Negative) Result Diagrams: 01/30/17 12:35 01/30/17 12:35 Lab Statement: Any lab studies that have been ordered have been reviewed, and results considered in the medical decision making process. - Additional Comments Diagnostic Additional Comments: Brain MRI reveals 1. AGAIN NOTED IS A SURGICAL RESECTION CAVITY WITH MARGINAL ENHANCEMENT OF THE LEFT FRONTAL LOBE EXTENDING TO THE MARGIN OF THE LEFT LATERAL VENTRICLE. 2. WHEN COMPARED TO THE 2014 EXAMINATION, THERE HAS BEEN AN INTERVAL DECREASE IN THE DEGREE OF MARGINAL NODULAR ENHANCEMENT AND ASSOCIATED VASOGENIC EDEMA. 3. THERE HAS BEEN A RELATIVE INCREASE IN THE DEGREE OF DIFFUSE WHITE MATTER CHANGE, WHICH PRESUMABLY REFLECTS TREATMENT EFFECT FROM RADIATION THERAPY.. ED physician has reviewed this radiology report and agrees. Complex Multi-Symp Course/Dx Course Of Treatment: Mr. Lovelace presented having had two focal seizures similar to the ones in the past. No obvious reason for the breakthru was found. Dr. Marinelli saw him and admitted him to the hospital. - Diagnoses Provider Diagnoses: Breakthrough seizure - Physician Notifications Discussed Care Of Patient With: Lisa Gregg Time Discussed With Above Provider: 12:36 Instructed by Provider To: Other - Consulted Dr. Gregg (oncologist) who recommended MRI. Discharge - Discharge Plan Condition: Stable Disposition: ADMITTED TO [facility] The documentation as recorded by the Shay ramon Alfonso accurately reflects the service I personally performed and the decisions made by me, James Vidal MD.
[2017-01-30] MEDS ORDERED: Enoxaparin(*) 40 MG/0.4 ML SYR SUBCUT SCH (19:00)
[2017-01-30] MEDS ORDERED: Enoxaparin(*) 150 MG/ML 1 ML SYRINGE SUBCUT SCH (19:00)
[2017-01-30] MEDS ORDERED: Dexamethasone TAB* 1 MG PO SCH (21:00)
[2017-01-30] MEDS: levETIRAcetam TAB* 500 MG PO SCH (22:10)
[2017-01-30] MEDS: Dexamethasone TAB* 4 MG PO SCH (22:11)
--- NOTE | 2017-01-30 23:37 | HP ---
HISTORY AND PHYSICAL: DATE OF ADMISSION: 01/30/17 Observation admission. REASON FOR ADMISSION: Recurrent seizures. HISTORY OF PRESENT ILLNESS: This is a 76-year-old gentleman who was treated for glioblastoma. He has been treated by Dr. Arjun ying in [place], [place]. He was diagnosed in June of this year, had initial debulking surgery followed by radiation and temozolomide. Then treated with monthly Temozolomide , stopped in November. He has a history of seizures in late November. At that time , he was placed on Keppra and is currently taking 1000 mg p.o. twice a day. He has been off chemotherapy but is scheduled to start Avstin on Monday. No seizures since starting the Keppra up until this morning. He reports 3 seizures just a few minutes apart. They were tonic clonic in nature and lasted approximately 1 minute. reports shaking of his arms and his legs and staring into the tacos. He came to the emergency room. In the emergency room, he has had an MRI of the brain. Initial review shows similar disease and similar level of edema as compared to December. He has been stable for several hours in the emergency room. No post ictal confusion but he is weak on left side above baseline. No recent fever or signs of infection. Currently at [facility] and has been taking medication regularly. PAST MEDICAL HISTORY: 1. GBM as noted above. 2. PE in December 2016, treated with Lovenox 125 mg subcu daily. 3. Hypothyroidism. 4. Hypertension. 5. High cholesterol. PAST SURGICAL HISTORY: 1. Frontal craniotomy in June 2016. 2. Hernia repair. 3. Cataracts. MEDICATIONS: 1. Amlodipine 5 mg a day. 2. Aspirin 81 mg a day. 3. B complex. 4. Cozaar 100 daily. 5. Vitamin D 1000 a day. 6. Dexamethasone 2 mg a day. 7. Colace 100 b.i.d. 8. Famotidine 20 mg daily. 9. Keppra 1000 mg b.i.d. 10. Kytril 1 mg p.r.n. 11. Levothyroxine 175 daily. 12. Minocycline 50 mg daily. 13. Niaspan 500 mg at bedtime. 14. Pravachol 20 mg daily. ALLERGIES: PRAVACHOL and ZOCOR. SOCIAL HISTORY: Currently living in [facility], but is scheduled to be discharged on Thursday to home. is primary support, she is with him in the emergency room. He has a remote smoking history and had been a drinker prior to diagnosis. FAMILY HISTORY: Breast cancer in his mother. REVIEW OF SYSTEMS: He reports being comfortable. He says his seizures were extended this morning, but he had not had any prior to that. Denies shortness of breath, pulmonary, cardiac symptoms. Denies GI symptoms, says he is eating well. He is conscious of urination. Denies dysuria. Neurologically, he has difficulty with focus. PHYSICAL EXAMINATION VITAL SIGNS: BP 148/100, pulse 67, respirations 17, temperature 98.7. O2 saturation 97%. HEENT: Cushingoid. Oral mucosa moist. No lesions. No lymphadenopathy. LUNGS: Clear to auscultation bilaterally. HEART: Regular rhythm. S1, S2. No murmurs or gallops. ABDOMEN: Obese, nontender, nondistended. : He has yellow urine in his urinal. EXTREMITIES: Trace edema bilaterally. Good pulses and warm to the touch. NEUROLOGIC: CN II through XII are intact. He has got strength 3/5 on the left , 5/5 on the right. He is following simple commands. He is oriented towards ER , being at [facility], and having had seizures this morning. DIAGNOSTIC STUDIES/LAB DATA: Platelet count is 78 this morning, which is near his baseline, and white count 9.8, 91% polys, hemoglobin 15.9, creatinine 0.76 and he had a lactic acid of 2.3, mildly elevated LFTs. MRI of the brain, initial read is stable, full read pending. ASSESSMENT AND PLAN: A 76-year-old male with a history of glioblastoma, treated up in [place] with surgery followed by temozolomide and radiation, followed by temozolomide. Therapy stopped in November and is planning on bevacizumab with Dr. Guevara at the end of this week. He presents with recurrent seizures. There is a seizure history in November but they have been controlled on Keppra up until today. Differential diagnosis for breakthrough seizures include disease progression, not visible on the MRI, inadequate dosing of Keppra. We discussed going to [place] with an increased dose of Keppra I am not sure I can get him his higher dose of Keppra in the [facility] tonight, he is at high risk for additional events. He is willing to stay overnight as observation with increased Keppra. If doing well, he will be discharged tomorrow morning to the [facility]. 1. Increase Keppra to 1500 mg p.o. b.i.d. Await final read of MRI. 2. We will continue Lovenox 125 mg subcu daily. unsure of Lovenox dose, based on prior discharge summary 3. We will continue home medications we know about including his blood pressure medication and the Synthroid. RN will call once we have med rec from [place]. 4. Dr. Guevara will round tomorrow, but at this time plan on keeping his appointment on Monday for bevacizumab. 5. He is DNR. [id number]/[facility] #: [id number] BRYAN
[2017-01-31] MEDS ORDERED: Levothyroxine TAB* 175 MCG TAB PO SCH (06:00)
[2017-01-31] MEDS ORDERED: Losartan TAB* 25 MG PO SCH (09:00)
[2017-01-31] MEDS ORDERED: amLODIPine TAB* 5 MG PO SCH (09:00)
[2017-01-31] MEDS: levETIRAcetam TAB* 500 MG PO SCH (09:24)
[2017-01-31] MEDS: Dexamethasone TAB* 4 MG PO SCH (09:25)
[2017-01-31 09:53] VITALS: BP 142/74
--- NOTE | 2017-01-31 12:01 | DS ---
CC: Dr. Guevara; [place] DISCHARGE SUMMARY DATE OF OBV ADMISSION: 01/30/2017 DATE OF DISCHARGE: 01/31/2017 HISTORY OF PRESENT ILLNESS: Mr. Lovelace is a 76-year-old male with glioblastoma multiforme previously treated in [place] by Dr. Díaz, most recently seen during hospitalization here about 1 month ago. He recently has progressed on Temodar which stopped in November of 2016. Consideration for starting Avastin. He was hospitalized here from 01/02 to 01/06/17. At that time he had presented with increasing weakness. He was started on increased doses of steroids with Decadron at 16 mg per day and was able to ambulate slightly better. He was however, transferred to a detention from previously having been at home, due to this problem with mobility and due to his needing to travel outside the country to visit her mother who is actively dying. The patient has remained in the detention since then and has had no increase in seizure activity at all from late November until day of admission. He presented at this time with several seizures on the day of admission. His reports that he has been more fatigued and sometimes having more difficulty with mobility, and right-sided weakness in spite of remaining on a full dose of Decadron. HOSPITAL COURSE: On arrival in the emergency room an MRI of the brain was performed and revealed there is actually less edema present than before, the size of the glioblastoma remains unchanged. No new lesions are seen. He was given extra doses Keppra with a dose increase from 750 t.i.d. to 1500 mg b.i.d. and kept on his Decadron at 8 mg b.i.d. With this he has had no further seizure activity and felt save to transfer back to detention. PAST MEDICAL HISTORY: Otherwise significant for hypothyroidism on Synthroid. Hypertension. Pulmonary embolus in December 2016 and remains on Lovenox 125 mg daily. DISCHARGE DIAGNOSES: 1. Seizure activity with need for increased dose of Keppra. 2. Glioblastoma multiforme having been on therapy since November and about to start Avastin scheduled in our office on 02/03/17 and remaining on Decadron. 3. Hypertension. 4. Hypothyroidism on Synthroid. MEDICATIONS AT THE TIME OF DISCHARGE: 1. Keppra increased to 1500 b.i.d. 2. Decadron 8 mg b.i.d. 3. Synthroid 75 micrograms daily. 4. Amlodipine 5 mg daily. 5. Minocycline 50 mg daily. 6. Cholecalciferol 1000 units daily. 7. Lovenox 125 micrograms daily. 8. Famotidine 20 mg daily. 9. Tylenol p.r.n. [id number]/[facility] #: [id number] [facility]
== END 2017-01-31 14:05 ==
LOC: ED 11:41 → MED 18:12
PROVIDERS: ADMIT Internal Medicine Hematology & Oncology; ATTEND Internal Medicine Hematology & Oncology
DX: R56.9 Unspecified convulsions (principal); C71.9 Malignant neoplasm of brain, unspecified; I10 Essential (primary) hypertension; E03.9 Hypothyroidism, unspecified; Z79.899 Other long term (current) drug therapy; Z86.711 Personal history of pulmonary embolism; Z79.01 Long term (current) use of anticoagulants; E78.00 Pure hypercholesterolemia, unspecified; Z87.891 Personal history of nicotine dependence; R53.1 Weakness
CPT/HCPCS: 36415; 70553; 80053; 80177; 81003; 83605; 83735; 85025; 85610; 96372; 99223; 99284; A9270-GY; A9579; G0378; J1650; J8540